=== PATIENT | male | born 1960 | race Caucasian/White ===

== ENCOUNTER → 2016-12-04 | Outpatient (CLI) | payer OTHER ==
[~2016-12-04] MED LIST: ALBUTEROL0.09 MG/A2 IH; AMITRIPTYLINE50 MG PO; ANAPROX DS550 MG PO; ASMANEX220 MCG INH; ATHLETE'S FOOT15 GM T; ATIVAN1 MG PO; AUGMENTIN 875 M1 TAB PO; BACTRIM DS 8001 TA1 PO; CIALIS5 MG PO; CIPRODEX 0.3%-7.5 ML OT; CLARITIN10 MG PO; DELTASONE20 M1 PO; DOXYCYCLINE100 M3 PO; DUONEB 3 MG/3 ML3 M1 INH; ETODOLAC400 M2 PO; ETODOLAC500 MG PO; FLEXERIL10 MG PO; HYDROCODONE BIT1 T11 PO; KEFLEX500 MG PO; LASIX20 MG PO; LODINE XL 500M500 MG PO; MASON NATURAL2000 IU PO; MOTRIN800 MG PO; MULTI VITAMINS1 TAB PO; Motrin,Rufen800 MG PO; NAPROSYN500 MG PO; OMEPRAZOLE20 M2 PO; POTASSIUM CHLO10 MEQ PO; POTASSIUM20 MEQ PO; PREDNICOT20 MG PO; PREVACID30 M1 PO; PRILOSEC20 MG PO; PROAIR HFA0.09 MG/AC IH; ROBITUSSIN AC 10 MG/ PO; SEPTRA DS 800 M1 TAB PO; SPIRIVA18 MCG PO; TESSALON PERLE200 MG PO; TOBREX OPHTH S2.5 ML OPH; TRAMADOL HCL50 MG PO; ULTRAM50 MG PO; VIBRAMYCIN100 MG PO; VICODIN 5-3001 EACH PO; VICODIN 5/500 505 MG PO; ZITHROMAX250 MG PO
[2016-12-04 09:07] LABS: HEMOGLOBIN 17.2 g/dl (14.0-18.0); MEAN CELL VOLUME 91.6 fl (80.0-94.0); MEAN CORPUSCULAR HGB 32.1 pg (27.0-31.0); MEAN CORPUSCULAR HGB CONC 35.1 g/dl (33.0-37.0); MEAN PLATELET VOLUME 10.3 fl (9.6-12.3); RED BLOOD COUNT 5.35 10*6/uL (4.50-5.90); RED CELL DISTRI WIDTH 12.9 % (0-14.5); WHITE BLOOD COUNT 6.8 10*3/uL (4.8-10.8)
[2016-12-04 09:30] LABS: ALBUMIN 3.7 gm/dl (3.1-4.5); ALKALINE PHOSPHATASE 73 U/L (45-117); BUN 19 mg/dl (7-24); CHLORIDE 106 mmol/L (98-107); CHOLESTEROL 162 mg/dL (<200); CREATININE 0.95 mg/dL (0.70-1.30); HDL CHOLESTEROL 38 mg/dl (40-60); LDL CHOLESTEROL 89 mg/dL (9-159); POTASSIUM 3.6 mmol/L (3.5-5.1); SGOT/AST 13 IU/L (3-35); SGPT/ALT 21 U/L (12-78); SODIUM 140 mmol/L (136-145); TOTAL PROTEIN 6.8 gm/dL (6.4-8.2); TRIGLYCERIDES 175 mg/dl (<150); VLDL CHOLESTEROL 35 mg/dL (6-40)
[2016-12-06 01:04] LABS: DILUTE PROTHROMBIN TIME 50.2 sec (0.0-55.0); DPT CONFIRM RATIO 1.13 Ratio (0.00-1.40); LUPUS DRVVT 41.8 sec (0.0-47.0); PTT-LA 38.6 sec (0.0-51.9); THROMBIN TIME 21.4 sec (0.0-23.0)
[2016-12-06 03:08] LABS: LUPUS REFLEX INTERPRETATION Comment: (.)
== END | disposition home or self-care (01) ==
LOC: LAB 08:37
PROVIDERS: Registered Nurse Flight
DX: I10 Essential (primary) hypertension (principal); F51.01 Primary insomnia; I37.0 Nonrheumatic pulmonary valve stenosis; M54.32 Sciatica, left side; R79.89 Other specified abnormal findings of blood chemistry

== ENCOUNTER 2017-01-09 11:40 | Inpatient (IN) | payer MEDICAID ==
[2017-01-09] VITALS (8 sets, daily range): BP systolic 124–152; BP diastolic 17–97
[~2017-01-09] VITALS: Ht 172.7 cm; Wt 77.3 kg
--- NOTE | ~2017-01-09 | CON ---
[place], [place] REPORT OF CONSULTATION NAME: LISSA RICHARD [facility] #: [id number] UNIT #: [id number] ROOM: 402 DOCTOR: CHANEL CALL MD BIRTHDATE: [birth year] DOS: 01/09/2017 HISTORY OF PRESENT ILLNESS: This is a 56-year-old -Citizen Of The [place] man with a history of aortic valve replacement in 1979 and again in the year 1999. Last year, he had been diagnosed with pulmonic stenosis and had gone to [facility] where he tells me they did some kind of procedure or test from the right groin, I presumed right heart catheterization. He has never had a heart attack, heart failure, diabetes mellitus, stroke, cancer or COPD, never had pulmonary embolism and no syncope or seizure disorder. He does not drink alcoholic beverages, but may be smoking 1 or 2 cigarettes a day. PAST MEDICAL HISTORY: Also includes depression, anxiety, DVT, COPD, GERD, bacteremia, scoliosis. He came to the Emergency Department because of sudden onset of sharp stabbing pain that was a very localized as if a bullet went through the left side of the chest into the back. He had been complaining of some very localized pain over the 5th and 6th rib on the left side and adjacent to the sternum and upper left back. It eased up, but about 10 minutes ago, it became severe again. Deep breath did not make any difference. He did not have any sweating, nausea or palpitations. He does not have any cough or fever. HOME MEDICATIONS: Include Proventil HFA, amitriptyline, vitamin D3, etodolac, furosemide, gabapentin, DuoNeb treatments, lisinopril, multivitamin, omeprazole, potassium chloride and Cialis, temazepam and Spiriva. PHYSICAL EXAMINATION: GENERAL: The patient is alert and oriented. He has right corneal opacity. His complexion is fine. He is afebrile. There is no thyromegaly or finger clubbing. VITAL SIGNS: Pulse is regular at 72, blood pressure 137/78. NECK: JVP is normal. AJR is negative. There is no carotid bruit. CARDIOVASCULAR: There is no cardiomegaly. Auscultation reveals normal A2. There is a grade 1/6-2/6 early peaking systolic murmur over the aortic area and there is a mild systolic murmur at the apex as well. There is a grade 2/6 systolic murmur over the right upper sternal border. P2 is audible and does not seem to be loud and good pedal pulses and no edema in lower extremities. RESPIRATORY: Lungs are clear to percussion and auscultation with good breath sounds. ABDOMEN: Supple, nontender. No bruit. DIAGNOSTIC STUDIES: ECG showed normal sinus rhythm and RSR pattern in anterior chest leads with normal QRS interval. No acute changes are present. Troponin I level is normal. CT of the chest was done which did not demonstrate any pulmonary embolism. IMPRESSION: This patient has valvular heart disease, status post aortic valve replacement and I believe pulmonic stenosis. He does not have any chronic symptoms from valvular abnormalities. Aortic valve seemed to be functioning [place], [place] REPORT OF CONSULTATION NAME: LISSA RICHARD UNIT #: [id number] ROOM: 402 DOCTOR: CHANEL CALL MD BIRTHDATE: [birth year] normally. Sharp pain that penetrated through to the back has had occurred today and it is noncardiac. There is marked tenderness over the left upper paraspinal muscles, which is a kind of pain he pointed out to me earlier. I do not have any specific recommendations. He clearly does not need any stress test from cardiac standpoint, he may be discharged home. I thank on behalf of Dr. Salgado for this consult. CHANEL CALL MD CM:CONSTR:REPORT OF CONSULTATION 22 01/09/172056 interface
[~2017-01-09 11:40] MED LIST changes: -ALBUTEROL0.09 MG/A2 IH; -MASON NATURAL2000 IU PO; -OMEPRAZOLE20 M2 PO; +OMEPRAZOLE40 MG PO; +PROVENTIL HFA6.7 GM INH; +VITAMIN D31000 UNI1 PO
--- NOTE | 2017-01-09 11:50 | NUR ---
RECIEVED A CALL FROM JORDON SOMERS, STATING THAT HE IS SENDING THIS PATIENT DOWN TO BEEN SEEN FOR SOB, STABBING CHEST PAIN RADIATING TO THE BACK AND L ARM ALSO WITH JAW INVOLVEMENT.STATED PT HAS A SIGNIFICNT CARDIAC HISTORY AND IS NON COMPLIANT. ALSO THAT HE IS A SMOKER.
[2017-01-09 12:15] LABS: BASO # 0.1 10*3/uL (0.0-0.1); BASO % 0.9 % (0.0-1.0); EOS # 0.3 10*3/uL (0.0-0.4); EOS % 3.7 % (1.0-4.0); HEMOGLOBIN 17.3 g/dl (14.0-18.0); LYMPH % 24.1 % (27.0-41.0); MEAN CELL VOLUME 91.4 fl (80.0-94.0); MEAN CORPUSCULAR HGB 32.3 pg (27.0-31.0); MEAN CORPUSCULAR HGB CONC 35.3 g/dl (33.0-37.0); MEAN PLATELET VOLUME 10.2 fl (9.6-12.3); MONO # 0.7 10*3/uL (0.1-1.0); MONO % 8.6 % (3.0-9.0); NEUT # 5.1 10*3/uL (2.3-7.9); NEUT % 62.6 % (47.0-73.0); PLATELET COUNT AUTOMATED 179 10*3/uL (130-400); RED BLOOD COUNT 5.36 10*6/uL (4.50-5.90); RED CELL DISTRI WIDTH 13.2 % (0-14.5); WHITE BLOOD COUNT 8.1 10*3/uL (4.8-10.8)
[2017-01-09 12:23] LABS: ACT PARTIAL THROMBO TIME 27.6 SECONDS (20.8-31.5); INTERNATIONAL NORM RATIO 1.1 (2.0-3.5)
[2017-01-09 12:36] LABS: ALKALINE PHOSPHATASE 69 U/L (45-117); BUN 28 mg/dl (7-24); CHLORIDE 103 mmol/L (98-107); CREATININE 0.98 mg/dL (0.70-1.30); POTASSIUM 4.7 mmol/L (3.5-5.1); SGOT/AST 17 IU/L (3-35); SGPT/ALT 26 U/L (12-78); SODIUM 138 mmol/L (136-145); TOTAL PROTEIN 6.9 gm/dL (6.4-8.2)
[2017-01-09 12:44] LABS: TROPONIN I < 0.015 ng/ml (<0.045)
--- NOTE | 2017-01-09 13:09 | NUR ---
PT ASKED FOR FOOD. I EXPLAINED THAT HE CAN NOT EAT OR DRINK ANYTHING AT LEAST UNTIL THE CT RESULTS ARE RECIEVED. VERBAL UNDERSTANDING NOTED
--- NOTE | 2017-01-09 14:07 | NUR ---
I CALLED CT TO ASK HOW MUCH LONGER IT WOULD BE UNTIL HE IS TAKING FOR CT
--- NOTE | 2017-01-09 15:34 | NUR ---
THE PT REQUESTED SOMETHING FOR PAIN RELIEF. DR WEST NOTIFIED
--- NOTE | 2017-01-09 16:11 | NUR ---
I CALLED TO GIVE REPORT. A NURSE HAS NOT BE ASSIGNED TO THE PATIENT YET
--- NOTE | 2017-01-09 16:30 | NUR ---
A 56, admitted to , under the services of ADRI Joy DO with a diagnosis of CHEST PAIN R/O FL. Chief complaint is CHEST PAIN/ JAW PAIN, SOB. Patient arrived via ambulatory from ER. Monitor applied. Initial assessment completed. Vital signs taken and recorded. ADRI JOY DO notified of admission to the unit. Orders received. See assessment for past medical history, medications and allergies. Patient and/or family oriented to unit. [facility] visitation policy reviewed. Clothing/patient valuable form completed. KAN BECKER
[2017-01-09] MEDS ORDERED: ZESTRIL10 MG PO (16:36)
[2017-01-09] MEDS ORDERED: RESTORIL15 MG PO (16:37)
[2017-01-09] MEDS ORDERED: NEURONTIN300 MG PO (16:37)
--- NOTE | 2017-01-09 16:38 | NUR ---
Med rec updated per [facility]
--- NOTE | 2017-01-09 17:35 | NUR ---
DR CALL HERE AND NOTIFIED OF NEW CONSULT FOR DR UNGER.
--- NOTE | 2017-01-09 18:04 | NUR ---
DR CALL IN TO SEE PT AT THIS TIME.
--- NOTE | 2017-01-09 18:05 | NUR ---
MEDICATED WITH NORCO FOR PT'S COMPLAINTS OF LEFT SIDE OF BACK PAIN, RATES PAIN 8/10. WILL MONITOR FOR EFFECTIVENESS.
--- NOTE | 2017-01-09 20:05 | NUR ---
LAB RESULTS AND ORDERS REVEIWED
[2017-01-10] VITALS: BP 138/88
[2017-01-10 04:00] VITALS: BP 119/70
[2017-01-10 06:09] LABS: BASO # 0.1 10*3/uL (0.0-0.1); BASO % 1.1 % (0.0-1.0); EOS # 0.3 10*3/uL (0.0-0.4); EOS % 4.8 % (1.0-4.0); HEMATOCRIT 46.2 % (42.0-52.0); HEMOGLOBIN 16.4 g/dl (14.0-18.0); LYMPH # 2.5 10*3/uL (1.3-4.4); LYMPH % 37.5 % (27.0-41.0); MEAN CELL VOLUME 89.2 fl (80.0-94.0); MEAN CORPUSCULAR HGB 31.7 pg (27.0-31.0); MEAN CORPUSCULAR HGB CONC 35.5 g/dl (33.0-37.0); MEAN PLATELET VOLUME 10.4 fl (9.6-12.3); MONO # 0.8 10*3/uL (0.1-1.0); MONO % 11.3 % (3.0-9.0); PLATELET COUNT AUTOMATED 159 10*3/uL (130-400); RED BLOOD COUNT 5.18 10*6/uL (4.50-5.90); RED CELL DISTRI WIDTH 12.9 % (0-14.5); WHITE BLOOD COUNT 6.6 10*3/uL (4.8-10.8)
[2017-01-10 06:31] LABS: ALBUMIN 3.5 gm/dl (3.1-4.5); BUN 24 mg/dl (7-24); CHLORIDE 101 mmol/L (98-107); CHOLESTEROL 144 mg/dL (<200); CREATININE 0.78 mg/dL (0.70-1.30); PHOSPHOROUS 3.9 mg/dL (2.5-4.9); SGOT/AST 13 IU/L (3-35); SGPT/ALT 24 U/L (12-78); SODIUM 136 mmol/L (136-145); TOTAL PROTEIN 6.3 gm/dL (6.4-8.2); TRIGLYCERIDES 82 mg/dl (<150); VLDL CHOLESTEROL 16 mg/dL (6-40)
[2017-01-10 06:38] LABS: ALKALINE PHOSPHATASE 61 U/L (45-117); FREE T4 1.08 ng/dl (0.76-1.46); HDL CHOLESTEROL 37 mg/dl (40-60); LDL CHOLESTEROL 91 mg/dL (9-159)
[2017-01-10 06:48] LABS: POTASSIUM 3.6 mmol/L (3.5-5.1)
[2017-01-10 07:48] LABS: VITAMIN D, 25-HYDROXY 32.5 ng/mL (30-100)
[2017-01-10 08:00] VITALS: BP 122/74
--- NOTE | 2017-01-10 09:00 | NUR ---
Information Architect in to talk to patient. Patient states lives at home with alone. There are few steps in the home. Physician: breonna mclaughlin [facility] Home health services: none Patient's level of ADLs: INDEPENDENT Patient has working utilities: all working DME: [employer] Follow-up physician's appointment after d/c: will be made by hospitalist nurse director upon discharge Does patient want to access PORTAL?: no] Discharge plan discussed with patient, patient lives at home alone, states he is independent in adls and ambulation, patient states he is will be going home and denies any home needs. MEI DUMONT
--- NOTE | 2017-01-10 11:35 | NUR ---
PT C/O PAIN BETWEEN SHOULDER BLADES RATES PAIN 8 ON PAIN SCALE 0-10. ALSO C/O LEFT HIP PAIN RATES THAT PAIN 12 ON PAIN SCALE 0-10. MEDICATED WITH NORCO PO PER PRN ORDER, SEE EMAR. CALL LIGHT IN REACH.
[2017-01-10 12:00] VITALS: BP 122/61
[2017-01-10] MEDS ORDERED: CYCLOBENZAPRINE10 MG PO ×2 (15:26→15:30)
--- NOTE | 2017-01-10 15:49 | NUR ---
PT DISCHARGED AT THIS TIME WITH SPOUSE TO HOME.
== END 2017-01-10 16:10 | disposition home or self-care (01) | DRG 313 ==
LOC: ED 11:40 → EDHOLD 16:03 → 4E 16:03
PROVIDERS: Emergency Medicine; Registered Nurse; ADMIT Internal Medicine
DX: R07.89 Other chest pain (principal); I25.10 Atherosclerotic heart disease of native coronary artery without angina pectoris; I11.0 Hypertensive heart disease with heart failure; I50.9 Heart failure, unspecified; F33.9 Major depressive disorder, recurrent, unspecified; F17.210 Nicotine dependence, cigarettes, uncomplicated; M54.30 Sciatica, unspecified side; G89.29 Other chronic pain; H54.40 Blindness, one eye, unspecified eye; J43.9 Emphysema, unspecified; H57.10 Ocular pain, unspecified eye; F41.9 Anxiety disorder, unspecified; K21.9 Gastro-esophageal reflux disease without esophagitis; M41.9 Scoliosis, unspecified; M19.90 Unspecified osteoarthritis, unspecified site; Z88.6 Allergy status to analgesic agent; Z88.1 Allergy status to other antibiotic agents; Z79.899 Other long term (current) drug therapy; Z86.718 Personal history of other venous thrombosis and embolism; Z87.81 Personal history of (healed) traumatic fracture; Z95.2 Presence of prosthetic heart valve; Z83.3 Family history of diabetes mellitus; Z82.49 Family history of ischemic heart disease and other diseases of the circulatory system; Z80.9 Family history of malignant neoplasm, unspecified; Z71.6 Tobacco abuse counseling

== ENCOUNTER → 2017-03-05 | Outpatient (CLI) | payer MEDICAID ==
[~2017-03-05] MED LIST changes: +AMBIEN10 M1 PO; +CYCLOBENZAPRINE10 MG PO; +NEURONTIN300 MG PO; +RESTORIL15 MG PO; +ZESTRIL10 MG PO
--- NOTE | ~2017-03-05 | ST ---
[place], [place] EXERCISE STRESS TEST REPORT [id number] UN[facility] #: [id number] ROOM: DOCTOR: MICHAEL UNGER MD BIRTHDATE: [birth year] DOS: 03/05/2017 LEXISCAN PORTION OF THE LEXISCAN CARDIOLITE Baseline cardiogram, sinus rhythm with mild concave ST elevation in the inferior leads, 0.4 mg Lexiscan, duration of 10 seconds. The patient did have some mild more ST elevation concave in the inferior leads, did have some chest discomfort, 5/10. Blood pressure and heart rate responses normal. Nuclear images will be reported separately. MICHAEL UNGER MD CM:STRESS:EXERCISE STRESS TEST REPORT 0712 0724 MICHAEL UNGER MD
== END | disposition home or self-care (01) ==
LOC: CARD 03:25
DX: I10 Essential (primary) hypertension (principal); R07.89 Other chest pain; G89.4 Chronic pain syndrome; R53.81 Other malaise

== ENCOUNTER 2017-08-02 19:44 | Emergency (ER) | payer MEDICAID ==
[2017-08-02 20:09] LABS: BASO # 0.1 10*3/uL (0.0-0.1); BASO % 0.6 % (0.0-1.0); EOS # 0.2 10*3/uL (0.0-0.4); EOS % 1.9 % (1.0-4.0); HEMATOCRIT 48.7 % (42.0-52.0); HEMOGLOBIN 16.7 g/dl (14.0-18.0); LYMPH # 2.7 10*3/uL (1.3-4.4); MEAN CELL VOLUME 92.8 fl (80.0-94.0); MEAN CORPUSCULAR HGB 31.8 pg (27.0-31.0); MEAN CORPUSCULAR HGB CONC 34.3 g/dl (33.0-37.0); MEAN PLATELET VOLUME 10.8 fl (9.6-12.3); MONO # 1.1 10*3/uL (0.1-1.0); MONO % 10.9 % (3.0-9.0); NEUT # 5.9 10*3/uL (2.3-7.9); NEUT % 59.3 % (47.0-73.0); PLATELET COUNT AUTOMATED 185 10*3/uL (130-400); RED BLOOD COUNT 5.25 10*6/uL (4.50-5.90); RED CELL DISTRI WIDTH 12.3 % (0-14.5); WHITE BLOOD COUNT 9.9 10*3/uL (4.8-10.8)
[2017-08-02] MEDS ORDERED: ATIVAN1 MG PO (20:23)
[2017-08-02 20:31] LABS: ALBUMIN 4.2 gm/dl (3.1-4.5); ALKALINE PHOSPHATASE 75 U/L (45-117); BUN 22 mg/dl (7-24); CHLORIDE 102 mmol/L (98-107); CREATININE 1.03 mg/dL (0.70-1.30); POTASSIUM 4.4 mmol/L (3.5-5.1); SGOT/AST 12 IU/L (3-35); SGPT/ALT 16 U/L (12-78); SODIUM 137 mmol/L (136-145); TOTAL PROTEIN 7.3 gm/dL (6.4-8.2)
[2017-08-02 20:37] LABS: TROPONIN I < 0.015 ng/ml (<0.045)
[2017-08-02 20:47] LABS: ACT PARTIAL THROMBO TIME 26.7 SECONDS (20.8-31.5); INTERNATIONAL NORM RATIO 1.2 (2.0-3.5)
[2017-08-03 01:02] VITALS: BP 133/82
[2017-08-03] MEDS ORDERED: SEPTDS PO (01:30)
[2017-08-03] MEDS ORDERED: VIBRAMYCIN100 MG PO (01:30)
== END 2017-08-03 01:43 | disposition home or self-care (01) ==
LOC: ED 19:44
PROVIDERS: Emergency Medicine Emergency Medical Services
DX: S29.012A Strain of muscle and tendon of back wall of thorax, initial encounter (principal); R22.0 Localized swelling, mass and lump, head; I25.10 Atherosclerotic heart disease of native coronary artery without angina pectoris; I11.0 Hypertensive heart disease with heart failure; I50.9 Heart failure, unspecified; K21.9 Gastro-esophageal reflux disease without esophagitis; F17.200 Nicotine dependence, unspecified, uncomplicated; M19.90 Unspecified osteoarthritis, unspecified site; Z88.1 Allergy status to other antibiotic agents; Z98.890 Other specified postprocedural states; Z86.718 Personal history of other venous thrombosis and embolism; Z88.6 Allergy status to analgesic agent; Z79.899 Other long term (current) drug therapy; Z95.1 Presence of aortocoronary bypass graft; X58.XXXA Exposure to other specified factors, initial encounter; Y93.89 Activity, other specified; Y92.89 Other specified places as the place of occurrence of the external cause; Y99.9 Unspecified external cause status

== ENCOUNTER 2017-08-16 14:50 | Emergency (ER) | payer MEDICAID ==
[~2017-08-16] VITALS: Wt 77.1 kg
[~2017-08-16 14:50] MED LIST changes: +SEPTDS PO
[2017-08-16 14:52] VITALS: BP 154/68
[2017-08-16] MEDS ORDERED: SILVADENE,SSD C50 GM T (15:15)
[2017-08-16] MEDS ORDERED: IBUPROFEN600 MG PO (15:15)
[2017-08-16] MEDS ORDERED: ANTIBIOTIC28.4 GM T (15:25)
== END 2017-08-16 15:40 | disposition home or self-care (01) ==
LOC: ED 14:50
DX: L55.0 Sunburn of first degree (principal); L55.1 Sunburn of second degree; Z79.899 Other long term (current) drug therapy; Z88.1 Allergy status to other antibiotic agents; Z88.5 Allergy status to narcotic agent

== ENCOUNTER 2017-08-23 17:06 | Emergency (ER) | payer MEDICAID ==
[~2017-08-23] VITALS: Ht 172.7 cm; Wt 95.3 kg
[~2017-08-23 17:06] MED LIST changes: +ANTIBIOTIC28.4 GM T; +IBUPROFEN600 MG PO; +SILVADENE,SSD C50 GM T
[2017-08-23 17:08] VITALS: BP 153/98
[2017-08-23 18:43] LABS: BASO % 0.4 % (0.0-1.0); EOS # 0.1 10*3/uL (0.0-0.4); EOS % 1.1 % (1.0-4.0); HEMATOCRIT 53.6 % (42.0-52.0); HEMOGLOBIN 19.2 g/dl (14.0-18.0); LYMPH % 27.3 % (27.0-41.0); MEAN CORPUSCULAR HGB 31.9 pg (27.0-31.0); MEAN CORPUSCULAR HGB CONC 35.8 g/dl (33.0-37.0); MEAN PLATELET VOLUME 10.4 fl (9.6-12.3); MONO # 0.8 10*3/uL (0.1-1.0); MONO % 11.2 % (3.0-9.0); NEUT # 4.4 10*3/uL (2.3-7.9); NEUT % 59.7 % (47.0-73.0); PLATELET COUNT AUTOMATED 196 10*3/uL (130-400); RED BLOOD COUNT 6.02 10*6/uL (4.50-5.90); RED CELL DISTRI WIDTH 11.9 % (0-14.5); WHITE BLOOD COUNT 7.4 10*3/uL (4.8-10.8)
[2017-08-23 18:57] LABS: ALBUMIN 4.2 gm/dl (3.1-4.5); ALKALINE PHOSPHATASE 86 U/L (45-117); BUN 25 mg/dl (7-24); CHLORIDE 102 mmol/L (98-107); CREATININE 0.91 mg/dL (0.70-1.30); POTASSIUM 3.6 mmol/L (3.5-5.1); SGOT/AST 17 IU/L (3-35); SGPT/ALT 26 U/L (12-78); SODIUM 132 mmol/L (136-145); TOTAL PROTEIN 7.5 gm/dL (6.4-8.2)
[2017-08-23 19:13] LABS: BILIRUBIN 2+ (NEGATIVE); BLOOD NEGATIVE (NEGATIVE); CLARITY CLEAR (CLEAR); COLOR YELLOW (YELLOW); GLUCOSE NEGATIVE (NEGATIVE); KETONE 2+ (NEGATIVE); LEUKO ESTERASE NEGATIVE (NEGATIVE); NITRITE NEGATIVE (NEGATIVE); SPECIFIC GRAVITY 1.025 (1.005-1.030)
[2017-08-23 19:21] LABS: BACTERIA TRACE; EPITHELIAL CELLS 0-2; MUCOUS 3+
== END 2017-08-23 22:40 | disposition home or self-care (01) ==
LOC: ED 17:06
PROVIDERS: Nurse Practitioner
DX: E86.0 Dehydration (principal); Z87.891 Personal history of nicotine dependence; Z98.890 Other specified postprocedural states; Z79.899 Other long term (current) drug therapy; Z88.1 Allergy status to other antibiotic agents; Z88.6 Allergy status to analgesic agent

== ENCOUNTER → 2017-10-09 | Outpatient (CLI) | payer MEDICAID ==
[~2017-10-09] MED LIST changes: +NORCO 5-325 TA1 EACH PO
== END | disposition home or self-care (01) ==
LOC: RAD 12:32
DX: S90.01XA Contusion of right ankle, initial encounter (principal); X58.XXXA Exposure to other specified factors, initial encounter; Y93.89 Activity, other specified; Y92.89 Other specified places as the place of occurrence of the external cause; Y99.8 Other external cause status

== ENCOUNTER 2017-10-11 11:11 | Emergency (ER) | payer MEDICAID ==
[~2017-10-11] VITALS: Ht 172.7 cm; Wt 80.7 kg
[~2017-10-11 11:11] MED LIST changes: -NORCO 5-325 TA1 EACH PO
[2017-10-11 11:13] VITALS: BP 142/80
[2017-10-11] MEDS ORDERED: NORCO 5-325 TA1 EACH PO (11:28)
[2017-10-11] MEDS ORDERED: NAPROSYN500 MG PO (11:28)
== END 2017-10-11 12:00 | disposition home or self-care (01) ==
LOC: ED 11:11
DX: S92.354D Nondisplaced fracture of fifth metatarsal bone, right foot, subsequent encounter for fracture with routine healing (principal); I25.10 Atherosclerotic heart disease of native coronary artery without angina pectoris; K21.9 Gastro-esophageal reflux disease without esophagitis; I11.0 Hypertensive heart disease with heart failure; I50.9 Heart failure, unspecified; M19.90 Unspecified osteoarthritis, unspecified site; Z98.890 Other specified postprocedural states; Z79.899 Other long term (current) drug therapy; Z88.1 Allergy status to other antibiotic agents; Z88.6 Allergy status to analgesic agent; Z87.891 Personal history of nicotine dependence; Z86.718 Personal history of other venous thrombosis and embolism; W18.49XD Other slipping, tripping and stumbling without falling, subsequent encounter

== ENCOUNTER → 2017-11-13 | Outpatient (CLI) | payer MEDICAID ==
[~2017-11-13] MED LIST changes: +AVPAK AZITHROM250 M1 PO; +BACLOFEN20 M1 PO; +FLAGYL500 MG PO; +IBU800 MG PO; +MAPAP EXTRA ST500 MG PO; -NEURONTIN300 MG PO; +NEURONTIN800 MG PO; +NORCO 5-325 TA1 EACH PO; +PROCTOZONE-HC30 GM R; +TYLENOL EXTRA500 MG PO; +ZOFRAN ODT4 MG SL; +ZOLPIDEM10 MG PO
== END | disposition home or self-care (01) ==
LOC: CT 09:43
DX: S92.354A Nondisplaced fracture of fifth metatarsal bone, right foot, initial encounter for closed fracture (principal); M79.89 Other specified soft tissue disorders; X58.XXXA Exposure to other specified factors, initial encounter; Y93.89 Activity, other specified; Y92.89 Other specified places as the place of occurrence of the external cause; Y99.8 Other external cause status

== ENCOUNTER 2017-11-17 08:19 | Inpatient (IN) | payer MEDICAID ==
[~2017-11-17] VITALS: Ht 172.7 cm; Wt 84.4 kg
--- NOTE | ~2017-11-17 | EKG ---
[place], [place] ELECTROCARDIOGRAM REPORT NAME: LISSA RICHARD UNIT #: [id number] ROOM: 502 DOCTOR: OCTAVIO DRAFT REPORT BIRTHDATE: [birth year] [facility] Test Date: 2017-11-17 Test Time: 09:06:33 Pat Name: LISSA RICHARD Department: Room: [facility] Gender: M Ear Nose Throat Physician: : 1960 Requested By: OSVALDO SORTO Order Number: [id number] Reading MD: Joon Salgado MD Measurements Intervals [place] Rate: 77 P: 67 [place]: 144 QRS: 122 QRSD: 84 T: 53 QT: 399 QTc: 452 Interpretive Statements Sinus rhythm Probable left atrial enlargement Consider right ventricular hypertrophy Minimal ST elevation, inferior leads Electronically Signed On 11-18-2017 8:42:40 PDT by Joon Salgado MD CM:EKGRPT:ELECTROCARDIOGRAM REPORT 5 0842 OSVALDO CUNNINGHAM DRAFT REPORT OSVALDO SORTO MD
[~2017-11-17 08:19] MED LIST changes: -AVPAK AZITHROM250 M1 PO; -BACLOFEN20 M1 PO; -FLAGYL500 MG PO; -IBU800 MG PO; -MAPAP EXTRA ST500 MG PO; -PROCTOZONE-HC30 GM R; -TYLENOL EXTRA500 MG PO; -ZOLPIDEM10 MG PO
[2017-11-17 08:25] VITALS: BP 142/83
[2017-11-17 09:11] LABS: BASO % 0.5 % (0.0-1.0); EOS # 0.1 10*3/uL (0.0-0.4); EOS % 1.2 % (1.0-4.0); HEMATOCRIT 51.8 % (42.0-52.0); HEMOGLOBIN 17.5 g/dl (14.0-18.0); LYMPH # 1.5 10*3/uL (1.3-4.4); LYMPH % 18.3 % (27.0-41.0); MEAN CELL VOLUME 92.2 fl (80.0-94.0); MEAN CORPUSCULAR HGB 31.1 pg (27.0-31.0); MEAN CORPUSCULAR HGB CONC 33.8 g/dl (33.0-37.0); MEAN PLATELET VOLUME 10.3 fl (9.6-12.3); MONO # 0.6 10*3/uL (0.1-1.0); MONO % 7.2 % (3.0-9.0); NEUT # 6.1 10*3/uL (2.3-7.9); NEUT % 72.4 % (47.0-73.0); PLATELET COUNT AUTOMATED 194 10*3/uL (130-400); RED BLOOD COUNT 5.62 10*6/uL (4.50-5.90); RED CELL DISTRI WIDTH 12.3 % (0-14.5); WHITE BLOOD COUNT 8.4 10*3/uL (4.8-10.8)
[2017-11-17 09:23] LABS: ACT PARTIAL THROMBO TIME 27.6 SECONDS (20.8-31.5); INTERNATIONAL NORM RATIO 1.2 (2.0-3.5)
[2017-11-17 09:32] LABS: ALBUMIN 3.8 gm/dl (3.1-4.5); ALKALINE PHOSPHATASE 81 U/L (45-117); BUN 23 mg/dl (7-24); CHLORIDE 106 mmol/L (98-107); CREATININE 0.83 mg/dL (0.70-1.30); LIPASE 78 U/L (73-393); POTASSIUM 4.4 mmol/L (3.5-5.1); SGOT/AST 18 IU/L (3-35); SGPT/ALT 22 U/L (12-78); SODIUM 138 mmol/L (136-145); TOTAL PROTEIN 7.2 gm/dL (6.4-8.2)
[2017-11-17 09:33] LABS: TROPONIN I < 0.015 ng/ml (<0.045)
[2017-11-17 10:18] LABS: BILIRUBIN 2+ (NEGATIVE); BLOOD NEGATIVE (NEGATIVE); CLARITY SL CLOUDY (CLEAR); COLOR YELLOW (YELLOW); GLUCOSE NEGATIVE (NEGATIVE); KETONE 1+ (NEGATIVE); LEUKO ESTERASE NEGATIVE (NEGATIVE); NITRITE NEGATIVE (NEGATIVE); PH 6.5 (5.0-9.0); SPECIFIC GRAVITY 1.025 (1.005-1.030)
[2017-11-17 10:24] LABS: MUCOUS 2+
[2017-11-17 11:05] VITALS: BP 127/70
[2017-11-17 11:48] VITALS: BP 154/84
[2017-11-17 16:00] VITALS: BP 126/77
[2017-11-17 20:00] VITALS: BP 135/78
[2017-11-18] VITALS: BP 127/72
[2017-11-18 06:59] LABS: BASO % 0.6 % (0.0-1.0); EOS # 0.1 10*3/uL (0.0-0.4); EOS % 1.8 % (1.0-4.0); LYMPH # 1.9 10*3/uL (1.3-4.4); LYMPH % 29.6 % (27.0-41.0); MEAN CELL VOLUME 92.9 fl (80.0-94.0); MEAN CORPUSCULAR HGB 31.6 pg (27.0-31.0); MEAN PLATELET VOLUME 10.6 fl (9.6-12.3); MONO # 0.6 10*3/uL (0.1-1.0); MONO % 10.2 % (3.0-9.0); NEUT # 3.6 10*3/uL (2.3-7.9); NEUT % 57.5 % (47.0-73.0); PLATELET COUNT AUTOMATED 172 10*3/uL (130-400); RED BLOOD COUNT 5.06 10*6/uL (4.50-5.90); RED CELL DISTRI WIDTH 12.3 % (0-14.5); WHITE BLOOD COUNT 6.3 10*3/uL (4.8-10.8)
[2017-11-18 07:10] LABS: BUN 21 mg/dl (7-24); CHLORIDE 108 mmol/L (98-107); CHOLESTEROL 172 mg/dL (<200); CREATININE 0.82 mg/dL (0.70-1.30); HDL CHOLESTEROL 28 mg/dl (40-60); LDL CHOLESTEROL 117 mg/dL (9-159); PHOSPHOROUS 3.4 mg/dL (2.5-4.9); SODIUM 138 mmol/L (136-145); TRIGLYCERIDES 134 mg/dl (<150); VLDL CHOLESTEROL 27 mg/dL (6-40)
[2017-11-18 08:00] VITALS: BP 124/84
[2017-11-18] MEDS ORDERED: BACLOFEN20 M1 PO (09:29)
[2017-11-18 16:00] VITALS: BP 133/73
[2017-11-18 20:00] VITALS: BP 110/62
[2017-11-19] VITALS: BP 121/65
[2017-11-19 08:00] VITALS: BP 134/74
[2017-11-19 20:00] VITALS: BP 136/73
[2017-11-20] VITALS: BP 139/84
[2017-11-20] MEDS ORDERED: FLAGYL500 MG PO (09:49)
[2017-11-20] MEDS ORDERED: AVPAK AZITHROM250 M1 PO (09:49)
[2017-11-20] MEDS ORDERED: TYLENOL EXTRA500 MG PO (09:49)
[2017-11-20] MEDS ORDERED: CLARITIN10 MG PO (09:50)
[2017-11-20] MEDS ORDERED: IBU800 MG PO (09:50)
== END 2017-11-20 12:56 | disposition home or self-care (01) | DRG 178 ==
LOC: ED 08:19 → 5E 10:50 → EDHOLD 10:50 → 5E 11:07
PROVIDERS: Emergency Medicine; Student in an Organized Health Care Education/Training Program
DX: J15.6 Pneumonia due to other Gram-negative bacteria (principal); J84.9 Interstitial pulmonary disease, unspecified; I50.22 Chronic systolic (congestive) heart failure; I38 Endocarditis, valve unspecified; K52.9 Noninfective gastroenteritis and colitis, unspecified; J34.89 Other specified disorders of nose and nasal sinuses; E83.41 Hypermagnesemia; E80.6 Other disorders of bilirubin metabolism; R82.4 Acetonuria; J43.9 Emphysema, unspecified; K21.9 Gastro-esophageal reflux disease without esophagitis; F41.8 Other specified anxiety disorders; M41.9 Scoliosis, unspecified; M19.90 Unspecified osteoarthritis, unspecified site; I25.10 Atherosclerotic heart disease of native coronary artery without angina pectoris; I83.812 Varicose veins of left lower extremity with pain; I11.0 Hypertensive heart disease with heart failure; H54.7 Unspecified visual loss; H54.61 Unqualified visual loss, right eye, normal vision left eye; H54.40 Blindness, one eye, unspecified eye; F32.9 Major depressive disorder, single episode, unspecified; Z86.718 Personal history of other venous thrombosis and embolism; Z95.2 Presence of prosthetic heart valve; Z88.8 Allergy status to other drugs, medicaments and biological substances; Z79.899 Other long term (current) drug therapy; Z71.6 Tobacco abuse counseling; Z72.0 Tobacco use; S92.354S Nondisplaced fracture of fifth metatarsal bone, right foot, sequela; Z98.42 Cataract extraction status, left eye; Z82.49 Family history of ischemic heart disease and other diseases of the circulatory system; Z83.3 Family history of diabetes mellitus; Z80.8 Family history of malignant neoplasm of other organs or systems

== ENCOUNTER → 2017-12-09 | Outpatient (CLI) | payer MEDICAID ==
[~2017-12-09] MED LIST changes: +AVPAK AZITHROM250 M1 PO; +BACLOFEN20 M1 PO; +FLAGYL500 MG PO; +IBU800 MG PO; +MAPAP EXTRA ST500 MG PO; +PROCTOZONE-HC30 GM R; +TYLENOL EXTRA500 MG PO; +ZOLPIDEM10 MG PO
== END | disposition home or self-care (01) ==
LOC: ORTHO 00:01 → RAD 00:01 → ORTHO 02:20
DX: J43.9 Emphysema, unspecified (principal); I50.9 Heart failure, unspecified; F17.200 Nicotine dependence, unspecified, uncomplicated; Z87.01 Personal history of pneumonia (recurrent)

== ENCOUNTER 2017-12-14 13:33 | Inpatient (IN) | payer MEDICAID ==
[~2017-12-14] VITALS: Ht 172.7 cm; Wt 83.5 kg
--- NOTE | ~2017-12-14 | EKG ---
[place], [place] ELECTROCARDIOGRAM REPORT NAME: LISSA RICHARD UNIT #: [id number] ROOM: [facility] DOCTOR: OCTAVIO DRAFT REPORT BIRTHDATE: [birth year] [facility] Test Date: 2017-12-14 Test Time: 13:41:12 Pat Name: LISSA RICHARD Department: Room: [facility] Gender: M President Financial Institution: : 1960 Requested By: OSVALDO SORTO Order Number: [id number] Reading MD: Joon Salgado MD Measurements Intervals [place] Rate: 69 P: 57 [place]: 144 QRS: 122 QRSD: 87 T: 38 QT: 402 QTc: 431 Interpretive Statements Sinus rhythm Probable left atrial enlargement Consider right ventricular hypertrophy Compared to ECG 11/17/2017 09:06:33 ST (T wave) deviation no longer present Electronically Signed On 12-16-2017 8:42:26 PDT by Joon Salgado MD CM:EKGRPT:ELECTROCARDIOGRAM REPORT 1341 0842 OSVALDO CUNNINGHAM DRAFT REPORT OSVALDO SORTO MD
--- NOTE | ~2017-12-14 | EKG ---
[place], [place] ELECTROCARDIOGRAM REPORT NAME: LISSA RICHARD UNIT #: [id number] ROOM: 515 DOCTOR: OCTAVIO DRAFT REPORT BIRTHDATE: [birth year] [facility] Test Date: 2017-12-14 Test Time: 19:49:20 Pat Name: LISSA RICHARD Department: 5E Room: [facility] Gender: M Early Childhood Specialist: Arron Gibson : 1960 Requested By: OSVALDO SORTO Order Number: [id number] Reading MD: Joon Salgado MD Measurements Intervals [place] Rate: 72 P: 70 [place]: 157 QRS: 141 QRSD: 91 T: 57 QT: 397 QTc: 435 Interpretive Statements Sinus rhythm Left atrial enlargement Consider RVH w/ secondary repol abnormality Compared to ECG 11/17/2017 09:06:33 ST (T wave) deviation no longer present Electronically Signed On 12-16-2017 8:43:00 PDT by Joon Salgado MD CM:EKGRPT:ELECTROCARDIOGRAM REPORT [id number] 0843 OSVALDO CUNNINGHAM DRAFT REPORT OSVALDO SORTO MD
--- NOTE | ~2017-12-14 | CON ---
[place], [place] REPORT OF CONSULTATION NAME: LISSA RICHARD UNIT #: [id number] ROOM: 515 DOCTOR: CHANEL CALL MD BIRTHDATE: [birth year] DOS: 12/15/[address] Navarrete. HISTORY OF PRESENT ILLNESS: This is a 57-year-old -[place] man with a history of aortic valve replacement in the very remote past and a tissue valve ____ and because of restenosis he had a porcine valve DICTATION ENDS HERE CHANEL CALL MD CM:CONSTR:REPORT OF CONSULTATION 1345 12/30/17 0750 RENY NICHOLS MIS.TM
--- NOTE | ~2017-12-14 | EKG ---
[place], [place] ELECTROCARDIOGRAM REPORT NAME: LISSA RICHARD UNIT #: [id number] ROOM: [facility] DOCTOR: OCTAVIO DRAFT REPORT BIRTHDATE: [address] [facility] Test Date: 2017-12-14 Test Time: 16:32:33 Pat Name: LISSA RICHARD Department: Room: [facility] Gender: M Pipelayer: [id number] : 1960 Requested By: OSVALDO SORTO Order Number: [id number] Reading MD: Joon Salgado MD Measurements Intervals [place] Rate: 66 P: 69 [place]: 151 QRS: 147 QRSD: 88 T: 63 QT: 415 QTc: 435 Interpretive Statements Sinus rhythm Left atrial enlargement Probable RVH w/ secondary repol abnormality Compared to ECG 11/17/2017 09:06:33 ST (T wave) deviation no longer present Electronically Signed On 12-16-2017 8:42:46 PDT by Joon Salgado MD CM:EKGRPT:ELECTROCARDIOGRAM REPORT [id number] 0842 OSVALDO CUNNINGHAM DRAFT REPORT OSVALDO SORTO MD
--- NOTE | ~2017-12-14 | CON ---
[place], [place] REPORT OF CONSULTATION NAME: LISSA RICHARD [facility] #: [id number] UNIT #: [id number] ROOM: 515 DOCTOR: CHANEL CALL MD BIRTHDATE: [birth year] DOS: 12/15/[address] Salgado. HISTORY OF PRESENT ILLNESS: This is a 57-year-old -[place] Island[place] man with a history of aortic valve disease. He had a bioprosthetic valve implanted in 2018 and restenosis resulted in insertion of a porcine valve in 1999. He has pulmonic stenosis and has been worked up in [facility]. He has had DVT of the left leg, COPD, GERD, scoliosis, anxiety and depression. He has never had a heart attack, heart failure, or stroke. He smokes 1 pack of cigarettes per day. Does not use alcoholic beverages. Lives at home. He was admitted to the hospital because of left submammary pain that went across the line of the ribs and pain was sharp and somebody was stabbing him and it would get worse when he coughed or took a deep breath in and it did not radiate to any other part of the body. There is no anterior chest pain or pressure. He had no palpitations, any sweating or nausea. He did not pass out. HOME MEDICATIONS: Reviewed. He is on bronchodilators. He is on baclofen 20 mg daily, vitamin D 1000 units daily, furosemide 20 mg daily, gabapentin 800 mg q.i.d., ibuprofen 800 t.i.d. p.r.n. for pain, etodolac 400 mg b.i.d., lisinopril 10 mg daily, Claritin 10 mg daily, lorazepam 1 mg b.i.d., multivitamins, omeprazole 40 daily, potassium chloride 10 mEq b.i.d., Spiriva as well. PHYSICAL EXAMINATION: GENERAL: The patient is short. He is rather flushed body but temperature is normal. He is not cyanotic, not jaundiced. There is no thyromegaly or finger clubbing. VITAL SIGNS: Pulse is regular at 60-70 beats per minute, blood pressure 118/52. NECK: JVP normal. AJR is negative. No bruit in the neck. HEART: There is a grade 1-2/6 systolic murmur over the pulmonic area and grade 1/6 murmur over the aortic area. He has good pedal pulses and no edema in the lower extremity. LUNGS: Clear to percussion and auscultation reveals just a few rhonchi, otherwise breath sounds are fairly decent. ECGs have shown normal sinus rhythm with good heart rate with RSR prime in V1 to V2 and inverted T waves in V1 to V3, then may be from right ventricular abnormality. Troponin levels are normal. IMPRESSION AND PLAN: 1. This patient with known coronary artery disease, has aortic valve replacement, which the valve seemed to function normally. 2. Acute sharp left submammary pain is most likely from the chest wall. He may have strained intercostal muscles. No further cardiac workup is necessary. From cardiac standpoint, he can be discharged home. [place], [place] REPORT OF CONSULTATION NAME: LISSA RICHARD UNIT #: [id number] ROOM: [facility] DOCTOR: CHANEL CALL MD BIRTHDATE: [birth year] CHANEL CALL MD CM:CONSTR:REPORT OF CONSULTATION 7224 12/16/17 1035 interface
[~2017-12-14 13:33] MED LIST changes: -MAPAP EXTRA ST500 MG PO; -PROCTOZONE-HC30 GM R; -ZOLPIDEM10 MG PO
[2017-12-14 13:34] VITALS: BP 148/81
[2017-12-14 13:50] LABS: BASO % 0.5 % (0.0-1.0); EOS # 0.1 10*3/uL (0.0-0.4); EOS % 0.6 % (1.0-4.0); HEMATOCRIT 47.4 % (42.0-52.0); HEMOGLOBIN 17.1 g/dl (14.0-18.0); LYMPH # 1.9 10*3/uL (1.3-4.4); MEAN CELL VOLUME 89.8 fl (80.0-94.0); MEAN CORPUSCULAR HGB 32.4 pg (27.0-31.0); MEAN CORPUSCULAR HGB CONC 36.1 g/dl (33.0-37.0); MONO # 0.7 10*3/uL (0.1-1.0); NEUT # 5.8 10*3/uL (2.3-7.9); NEUT % 68.5 % (47.0-73.0); PLATELET COUNT AUTOMATED 304 10*3/uL (130-400); RED BLOOD COUNT 5.28 10*6/uL (4.50-5.90); WHITE BLOOD COUNT 8.5 10*3/uL (4.8-10.8)
[2017-12-14 14:18] LABS: ALKALINE PHOSPHATASE 58 U/L (45-117); BUN 17 mg/dl (7-24); CHLORIDE 106 mmol/L (98-107); CREATININE 0.78 mg/dL (0.70-1.30); POTASSIUM 3.8 mmol/L (3.5-5.1); SGOT/AST 12 IU/L (3-35); SGPT/ALT 21 U/L (12-78); SODIUM 138 mmol/L (136-145); TOTAL PROTEIN 7.2 gm/dL (6.4-8.2)
[2017-12-14 14:32] LABS: TROPONIN I < 0.015 ng/ml (<0.045)
[2017-12-14 14:37] LABS: ACT PARTIAL THROMBO TIME 25.6 SECONDS (20.8-31.5); INTERNATIONAL NORM RATIO 1.2 (2.0-3.5)
[2017-12-14 14:45] VITALS: BP 153/83
[2017-12-14 15:40] VITALS: BP 155/86
[2017-12-14] MEDS ORDERED: MAPAP EXTRA ST500 MG PO (16:07)
[2017-12-14] MEDS ORDERED: ETODOLAC400 M2 PO (16:14)
[2017-12-14] MEDS ORDERED: ZESTRIL10 MG PO (16:16)
[2017-12-14] MEDS ORDERED: ZOLPIDEM10 MG PO (16:19)
[2017-12-14] MEDS ORDERED: PROCTOZONE-HC30 GM R (16:20)
[2017-12-14 16:49] VITALS: BP 140/68
[2017-12-14 17:00] VITALS: BP 150/88
[2017-12-14 20:00] VITALS: BP 130/75
[2017-12-15] VITALS: BP 132/78
[2017-12-15 06:20] LABS: BASO # 0.1 10*3/uL (0.0-0.1); BASO % 0.9 % (0.0-1.0); EOS # 0.2 10*3/uL (0.0-0.4); EOS % 2.9 % (1.0-4.0); HEMATOCRIT 47.1 % (42.0-52.0); HEMOGLOBIN 16.6 g/dl (14.0-18.0); LYMPH # 1.9 10*3/uL (1.3-4.4); LYMPH % 32.1 % (27.0-41.0); MEAN CELL VOLUME 91.3 fl (80.0-94.0); MEAN CORPUSCULAR HGB 32.2 pg (27.0-31.0); MEAN CORPUSCULAR HGB CONC 35.2 g/dl (33.0-37.0); MEAN PLATELET VOLUME 10.5 fl (9.6-12.3); MONO # 0.7 10*3/uL (0.1-1.0); MONO % 12.7 % (3.0-9.0); NEUT % 51.2 % (47.0-73.0); RED BLOOD COUNT 5.16 10*6/uL (4.50-5.90); RED CELL DISTRI WIDTH 12.8 % (0-14.5); WHITE BLOOD COUNT 5.8 10*3/uL (4.8-10.8)
[2017-12-15 06:23] LABS: PLATELET COUNT AUTOMATED 182 10*3/uL (130-400)
[2017-12-15 06:50] LABS: ALBUMIN 3.6 gm/dl (3.1-4.5); CHLORIDE 105 mmol/L (98-107); POTASSIUM 3.4 mmol/L (3.5-5.1); SODIUM 140 mmol/L (136-145)
[2017-12-15 06:56] LABS: ALKALINE PHOSPHATASE 54 U/L (45-117); BUN 17 mg/dl (7-24); CHOLESTEROL 185 mg/dL (<200); CREATININE 0.78 mg/dL (0.70-1.30); FREE T4 1.21 ng/dl (0.76-1.46); HDL CHOLESTEROL 35 mg/dl (40-60); LDL CHOLESTEROL 130 mg/dL (9-159); PHOSPHOROUS 4.5 mg/dL (2.5-4.9); SGOT/AST 11 IU/L (3-35); SGPT/ALT 18 U/L (12-78); TOTAL PROTEIN 6.7 gm/dL (6.4-8.2); TRIGLYCERIDES 98 mg/dl (<150); VLDL CHOLESTEROL 20 mg/dL (6-40)
[2017-12-15 08:00] VITALS: BP 123/78
[2017-12-15 12:00] VITALS: BP 118/52
[2017-12-15 16:00] VITALS: BP 133/47
[2017-12-16 16:45] LABS: VITAMIN D, 25-HYDROXY 22.9 ng/mL (30-100)
== END 2017-12-15 18:11 | disposition home or self-care (01) | DRG 313 ==
LOC: ED 13:33 → EDHOLD 15:03 → 5E 16:03
PROVIDERS: Emergency Medicine; Registered Nurse
DX: R07.89 Other chest pain (principal); I50.20 Unspecified systolic (congestive) heart failure; I25.119 Atherosclerotic heart disease of native coronary artery with unspecified angina pectoris; F17.210 Nicotine dependence, cigarettes, uncomplicated; F32.9 Major depressive disorder, single episode, unspecified; K21.9 Gastro-esophageal reflux disease without esophagitis; H54.61 Unqualified visual loss, right eye, normal vision left eye; I11.0 Hypertensive heart disease with heart failure; M19.90 Unspecified osteoarthritis, unspecified site; F41.8 Other specified anxiety disorders; E83.41 Hypermagnesemia; E80.6 Other disorders of bilirubin metabolism; J44.9 Chronic obstructive pulmonary disease, unspecified; Z87.01 Personal history of pneumonia (recurrent); Z88.8 Allergy status to other drugs, medicaments and biological substances; Z79.899 Other long term (current) drug therapy; Z86.718 Personal history of other venous thrombosis and embolism; Z98.42 Cataract extraction status, left eye; Z82.49 Family history of ischemic heart disease and other diseases of the circulatory system; Z83.3 Family history of diabetes mellitus; Z80.8 Family history of malignant neoplasm of other organs or systems; Z95.3 Presence of xenogenic heart valve

== ENCOUNTER 2017-12-17 13:12 | Emergency (ER) | payer MEDICAID ==
[~2017-12-17] VITALS: Ht 172.7 cm; Wt 82.6 kg
--- NOTE | ~2017-12-17 | EKG ---
[place], [place] ELECTROCARDIOGRAM REPORT NAME: LISSA RICHARD UNIT #: [id number] ROOM: DOCTOR: OCTAVIO DRAFT REPORT BIRTHDATE: [birth year] [facility] Test Date: 2017-12-17 Test Time: 14:05:31 Pat Name: LISSA RICHARD Department: Room: Gender: Roll Forming Supervisor: : 1960 Requested By: OSVALDO SORTO Order Number: [id number] Reading MD: Measurements Intervals [place] Rate: 67 P: 51 [place]: 152 QRS: 120 QRSD: 94 T: 36 QT: 375 QTc: 396 Interpretive Statements Sinus rhythm LAE, consider biatrial enlargement RVH with secondary repolarization abnrm Borderline ST elevation, lateral leads Compared to ECG 12/14/2017 19:49:20 ST (T wave) deviation now present CM:EKGRPT:ELECTROCARDIOGRAM REPORT 1405 1107 OSVALDO CUNNINGHAM DRAFT REPORT OSVALDO SORTO MD
[~2017-12-17 13:12] MED LIST changes: +MAPAP EXTRA ST500 MG PO; +PROCTOZONE-HC30 GM R; +ZOLPIDEM10 MG PO
[2017-12-17 14:10] LABS: BASO % 0.5 % (0.0-1.0); EOS # 0.1 10*3/uL (0.0-0.4); EOS % 0.9 % (1.0-4.0); HEMOGLOBIN 17.3 g/dl (14.0-18.0); LYMPH # 1.8 10*3/uL (1.3-4.4); LYMPH % 22.5 % (27.0-41.0); MEAN CELL VOLUME 91.6 fl (80.0-94.0); MEAN CORPUSCULAR HGB 32.3 pg (27.0-31.0); MEAN CORPUSCULAR HGB CONC 35.3 g/dl (33.0-37.0); MEAN PLATELET VOLUME 10.2 fl (9.6-12.3); MONO # 0.8 10*3/uL (0.1-1.0); MONO % 10.3 % (3.0-9.0); NEUT # 5.2 10*3/uL (2.3-7.9); NEUT % 65.7 % (47.0-73.0); PLATELET COUNT AUTOMATED 169 10*3/uL (130-400); RED BLOOD COUNT 5.35 10*6/uL (4.50-5.90); RED CELL DISTRI WIDTH 12.6 % (0-14.5)
[2017-12-17 14:20] LABS: ACT PARTIAL THROMBO TIME 26.6 SECONDS (20.8-31.5); INTERNATIONAL NORM RATIO 1.2 (2.0-3.5)
[2017-12-17 14:31] LABS: ALBUMIN 4.2 gm/dl (3.1-4.5); ALKALINE PHOSPHATASE 61 U/L (45-117); BUN 26 mg/dl (7-24); CHLORIDE 103 mmol/L (98-107); CREATININE 0.96 mg/dL (0.70-1.30); POTASSIUM 3.7 mmol/L (3.5-5.1); SGOT/AST 12 IU/L (3-35); SGPT/ALT 20 U/L (12-78); SODIUM 136 mmol/L (136-145); TOTAL PROTEIN 7.2 gm/dL (6.4-8.2)
[2017-12-17 14:32] LABS: TROPONIN I < 0.015 ng/ml (<0.045)
[2017-12-17 15:44] VITALS: BP 142/89
== END 2017-12-17 16:14 | disposition home or self-care (01) ==
LOC: ED 13:12
PROVIDERS: Emergency Medicine
DX: M79.605 Pain in left leg (principal); R10.9 Unspecified abdominal pain; R06.02 Shortness of breath; K21.9 Gastro-esophageal reflux disease without esophagitis; I11.0 Hypertensive heart disease with heart failure; I50.9 Heart failure, unspecified; I25.10 Atherosclerotic heart disease of native coronary artery without angina pectoris; J43.9 Emphysema, unspecified; F17.210 Nicotine dependence, cigarettes, uncomplicated; Z86.718 Personal history of other venous thrombosis and embolism; Z79.82 Long term (current) use of aspirin; Z88.6 Allergy status to analgesic agent; Z88.1 Allergy status to other antibiotic agents; Z79.899 Other long term (current) drug therapy

== ENCOUNTER → 2018-01-08 | Outpatient (CLI) | payer MEDICAID | END | disposition home or self-care (01) | LOC: ORTHO 01:28 | DX: S92.354D Nondisplaced fracture of fifth metatarsal bone, right foot, subsequent encounter for fracture with routine healing (principal); X58.XXXD Exposure to other specified factors, subsequent encounter ==

== ENCOUNTER → 2018-01-09 | Outpatient (CLI) | payer MEDICAID | END | disposition home or self-care (01) | LOC: US 07:09 | DX: K76.0 Fatty (change of) liver, not elsewhere classified (principal) ==

== ENCOUNTER → 2018-03-14 | Outpatient (CLI) | payer MEDICAID | END | disposition home or self-care (01) | LOC: ORTHO 04:27 | DX: S92.351D Displaced fracture of fifth metatarsal bone, right foot, subsequent encounter for fracture with routine healing (principal); X58.XXXD Exposure to other specified factors, subsequent encounter ==

== ENCOUNTER → 2018-05-16 | Outpatient (CLI) | payer MEDICAID ==
[~2018-05-16] MED LIST changes: +ANUSOL HC30 GM PO; +Bactroban Oint22 GM T; +DIAZEPAM10 M1 PO; +ELIQUIS5 M1 PO; +MELATONIN5 M1 PO; +ONDANSETRON ODT8 MG PO; +PREDNISONE10 MG PO; +PREDNISONE50 MG PO; +VENTOLIN 02.5 MG/3 M INH; +XANAX0.5 MG PO; +XANAX1 MG PO
== END | disposition home or self-care (01) ==
LOC: ORTHO 02:54
DX: M85.871 Other specified disorders of bone density and structure, right ankle and foot (principal)

== ENCOUNTER → 2018-07-31 | Outpatient (CLI) | payer MEDICAID ==
--- NOTE | ~2018-07-31 | EKG ---
[place], [place] ELECTROCARDIOGRAM REPORT NAME: LISSA RICHARD UNIT #: [id number] ROOM: DOCTOR: EPIPHANY DRAFT REPORT BIRTHDATE: [birth year] [facility] [place] Test Date: 2018-07-31 Test Time: 09:38:11 Pat Name: LISSA RICHARD Department: Room: Gender: Boom Crane Operator: : 1960 Requested By: FRANCES JEREZ Order Number: [id number] Reading MD: Madelin Amaya Measurements Intervals [place] Rate: 68 P: 57 MS: 148 QRS: 114 QRSD: 85 T: 55 QT: 396 QTc: 422 Interpretive Statements Sinus rhythm Anterior ST/T chagnes Compared to ECG 07/08/2018 02:36:27 No significant changes Electronically Signed On 08-03-2018 11:47:37 PDT by Madelin Amaya CM:EKGRPT:ELECTROCARDIOGRAM REPORT 0938 1147 FRANCES JEREZ EPIPHANY DRAFT REPORT FRANCES JEREZ
[2018-07-31 09:18] LABS: BASO # 0.1 10*3/uL (0.0-0.1); EOS # 0.2 10*3/uL (0.0-0.4); EOS % 3.4 % (1.0-4.0); HEMATOCRIT 51.7 % (42.0-52.0); HEMOGLOBIN 17.5 g/dl (14.0-18.0); LYMPH # 2.4 10*3/uL (1.3-4.4); LYMPH % 35.3 % (27.0-41.0); MEAN CELL VOLUME 93.3 fl (80.0-94.0); MEAN CORPUSCULAR HGB 31.6 pg (27.0-31.0); MEAN CORPUSCULAR HGB CONC 33.8 g/dl (33.0-37.0); MEAN PLATELET VOLUME 10.7 fl (9.6-12.3); MONO # 0.9 10*3/uL (0.1-1.0); MONO % 13.5 % (3.0-9.0); NEUT # 3.2 10*3/uL (2.3-7.9); NEUT % 46.7 % (47.0-73.0); PLATELET COUNT AUTOMATED 190 10*3/uL (130-400); RED BLOOD COUNT 5.54 10*6/uL (4.50-5.90); RED CELL DISTRI WIDTH 12.4 % (0-14.5); WHITE BLOOD COUNT 6.8 10*3/uL (4.8-10.8)
== END | disposition home or self-care (01) ==
LOC: LAB 08:43
DX: Z01.818 Encounter for other preprocedural examination (principal); G56.01 Carpal tunnel syndrome, right upper limb; J45.909 Unspecified asthma, uncomplicated; J44.9 Chronic obstructive pulmonary disease, unspecified; I25.10 Atherosclerotic heart disease of native coronary artery without angina pectoris

== ENCOUNTER 2018-09-28 13:32 | Emergency (ER) | payer MEDICAID ==
[~2018-09-28] VITALS: Ht 170.1 cm; Wt 87.1 kg
--- NOTE | ~2018-09-28 | EKG ---
[place], [place] ELECTROCARDIOGRAM REPORT NAME: LISSA RICHARD UNIT #: [id number] ROOM: DOCTOR: EPIPHANY DRAFT REPORT BIRTHDATE: [birth year] [facility] Test Date: 2018-09-28 Test Time: 14:10:24 Pat Name: LISSA RICHARD Department: Room: Gender: M Home Energy Consultant: SS RESP : 1960 Requested By: BUNNY ABDI DNP Order Number: [id number] Reading MD: Joon Salgado MD Measurements Intervals [place] Rate: 77 P: 66 MD: 143 QRS: 116 QRSD: 87 T: 47 QT: 372 QTc: 421 Interpretive Statements Sinus rhythm Left atrial enlargement Probable right ventricular hypertrophy Abnormal T, consider ischemia, anterior leads Borderline ST elevation, lateral leads Baseline wander in lead(s) V3,V6 Compared to ECG 08/29/2018 19:06:49 Atrial abnormality now present T-wave abnormality now present Possible ischemia now present ST (T wave) deviation now present Atrial fibrillation no longer present Electronically Signed On 10-02-2018 6:21:42 PDT by Joon Salgado MD CM:EKGRPT:ELECTROCARDIOGRAM REPORT 1410 0621 BUNNY CUNNINGHAM DRAFT REPORT BUNNY ABDI DNP
[~2018-09-28 13:32] MED LIST changes: -PREDNISONE50 MG PO
[2018-09-28 14:14] LABS: BASO # 0.1 10*3/uL (0.0-0.1); BASO % 0.8 % (0.0-1.0); EOS # 0.2 10*3/uL (0.0-0.4); EOS % 2.4 % (1.0-4.0); HEMATOCRIT 49.1 % (42.0-52.0); HEMOGLOBIN 17.1 g/dl (14.0-18.0); LYMPH # 2.6 10*3/uL (1.3-4.4); LYMPH % 42.3 % (27.0-41.0); MEAN CELL VOLUME 95.2 fl (80.0-94.0); MEAN CORPUSCULAR HGB 33.1 pg (27.0-31.0); MEAN CORPUSCULAR HGB CONC 34.8 g/dl (33.0-37.0); MONO # 0.8 10*3/uL (0.1-1.0); MONO % 12.2 % (3.0-9.0); NEUT # 2.6 10*3/uL (2.3-7.9); PLATELET COUNT AUTOMATED 188 10*3/uL (130-400); RED BLOOD COUNT 5.16 10*6/uL (4.50-5.90); RED CELL DISTRI WIDTH 13.6 % (0-14.5); WHITE BLOOD COUNT 6.2 10*3/uL (4.8-10.8)
[2018-09-28 14:24] LABS: ACT PARTIAL THROMBO TIME 29.9 SECONDS (20.0-32.1); INTERNATIONAL NORM RATIO 1.1 (2.0-3.5)
[2018-09-28 14:30] LABS: ALBUMIN 3.7 gm/dl (3.1-4.5); ALKALINE PHOSPHATASE 75 U/L (45-117); BUN 14 mg/dl (7-24); CHLORIDE 105 mmol/L (98-107); CREATININE 1.15 mg/dL (0.70-1.30); LIPASE 62 U/L (73-393); POTASSIUM 3.9 mmol/L (3.5-5.1); SGOT/AST 15 IU/L (3-35); SGPT/ALT 25 U/L (12-78); SODIUM 138 mmol/L (136-145); TOTAL PROTEIN 6.7 gm/dL (6.4-8.2)
[2018-09-28 14:31] LABS: TROPONIN I < 0.015 ng/ml (<0.045)
[2018-09-28 15:00] VITALS: BP 129/83
[2018-09-28] MEDS ORDERED: PREDNISONE50 MG PO (15:29)
[2018-09-28] MEDS ORDERED: NEURONTIN800 MG PO (15:29)
[2018-09-28] MEDS ORDERED: VICODIN 5-3001 EACH PO (15:29)
== END 2018-09-28 15:45 | disposition home or self-care (01) ==
LOC: ED 13:32
PROVIDERS: Nurse Practitioner Family
DX: B02.23 Postherpetic polyneuropathy (principal); J44.1 Chronic obstructive pulmonary disease with (acute) exacerbation; I25.10 Atherosclerotic heart disease of native coronary artery without angina pectoris; K21.9 Gastro-esophageal reflux disease without esophagitis; J44.9 Chronic obstructive pulmonary disease, unspecified; I50.9 Heart failure, unspecified; F17.200 Nicotine dependence, unspecified, uncomplicated; Z86.718 Personal history of other venous thrombosis and embolism; Z79.899 Other long term (current) drug therapy

== ENCOUNTER → 2018-10-08 | Outpatient (CLI) | payer MEDICAID ==
[~2018-10-08] MED LIST changes: +PREDNISONE50 MG PO
== END | disposition home or self-care (01) ==
LOC: ORTHO 00:21
DX: M25.552 Pain in left hip (principal)

== ENCOUNTER → 2018-10-23 | Outpatient (CLI) | payer MEDICAID ==
[2018-10-24 11:10] LABS: ALPHA-1-ANTITRYPSIN, SERUM 179 mg/dL (90-200)
== END | disposition home or self-care (01) ==
LOC: LAB 11:12
PROVIDERS: Internal Medicine Critical Care Medicine
DX: J44.9 Chronic obstructive pulmonary disease, unspecified (principal)

== ENCOUNTER 2018-12-19 12:32 | Inpatient (IN) | payer MEDICAID ==
[~2018-12-19] VITALS: Ht 170.2 cm; Wt 85.0 kg
--- NOTE | ~2018-12-19 | EKG ---
[place], [place] ELECTROCARDIOGRAM REPORT NAME: LISSA RICHARD UNIT #: [id number] ROOM: 531 DOCTOR: OCTAVIO DRAFT REPORT BIRTHDATE: [birth year] [facility] Test Date: 2018-12-19 Test Time: 13:07:48 Pat Name: LISSA RICHARD Department: Room: 531 Gender: M Cream Hauler: ADRIÁN : 1960 Requested By: CHRISTI TRAMMELL Order Number: [id number] Reading MD: Marcia Jones MD Measurements Intervals [place] Rate: 62 P: 61 ND: 155 QRS: 126 QRSD: 99 T: 55 QT: 409 QTc: 416 Interpretive Statements Sinus rhythm Ventricular premature complex Probable left atrial enlargement Consider right ventricular hypertrophy Abnormal T, consider ischemia, anterior leads Borderline ST elevation, lateral leads Compared to ECG 09/28/2018 14:10:24 Ventricular premature complex(es) now present T-wave abnormality still present Possible ischemia still present ST (T wave) deviation still present Electronically Signed On 12-20-2018 14:11:00 PDT by Marcia Jones MD CM:EKGRPT:ELECTROCARDIOGRAM REPORT 1307 1411 CHRISTI SCHOFIELD DRAFT REPORT CHRISTI TRAMMELL DO
--- NOTE | ~2018-12-19 | CON ---
[place], [place] REPORT OF CONSULTATION NAME: LISSA RICHARD [facility]: [id number] UNIT #: [id number] ROOM: 531 DOCTOR: DERRELL BOWDEN MD,GERRY BIRTHDATE: [birth year] DOS: 12/20/2018 REASON FOR CONSULTATION: Requested for assessment of current abnormal CT scan of the chest findings. HISTORY OF PRESENT ILLNESS: This is a 58-year-old white male patient who has been admitted to the hospital under care of the hospitalist service on the date of 12/19/2018. The patient has been admitted to the hospital as the patient has been reported Xanax or benzodiazepine/overdose. The patient admitted to the hospital, noted a quite poor historian. He has not been noted with any significant compromise or finding related to benzodiazepine toxicity last 24 hours of hospitalization. He has been noted chronic cough, small amount of sputum expectoration and symptoms of hemoptysis. The patient denies symptoms of chest pain at the present time, which is new. Denies symptoms of wheezing. Remaining systems reviewed was as follows. REVIEW OF SYSTEMS: CONSTITUTIONAL: Fatigue and tiredness reported. Denies symptoms of fever or chills. EYES: Denies any burning, redness, or tenderness. EARS, NOSE, THROAT SYMPTOMS: No sore throat, hoarseness, otalgia, postnasal drainage or epistaxis. EYES: Noted with blindness in one of the eyes. GASTROINTESTINAL SYMPTOMS: Denies dysphagia, nausea, vomiting, diarrhea, abdominal pain, hematemesis, melena or hematochezia. GENITOURINARY SYMPTOMS: No dysuria, suprapubic pain or hematuria. MUSCULOSKELETAL: No acute joint pain, redness, or tenderness. CENTRAL NERVOUS SYSTEM: No dizziness, headache, diplopia or syncopal episode. Remaining systems were reviewed. They were noted all negative. PAST MEDICAL HISTORY: Known is: 1. COPD. 2. Chronic calcification of the right small pleural fluid, which was considered benign, present for a long time. 3. Essential hypertension. 4. Past history of right-sided pneumothorax. 5. Scoliosis partially of the thoracic spine. 6. Congestive heart failure with preserved ejection fraction. 7. Chronic right corneal opacification with blindness. 8. History of deep venous thrombosis. 9. General anxiety disorder and depression. 10. History of aortic valve stenosis with replacement with porcine valve. PAST SURGICAL HISTORY: 1. Cardiac catheterization. 2. Porcine valve replacement of the aortic valve in the past. 3. Bronchoscopy. 4. Carpal tunnel surgery of the left wrist. [place], [place] REPORT OF CONSULTATION NAME: LISSA RICHARD UNIT #: [id number] ROOM: 531 DOCTOR: DERRELL BOWDEN MD,GERRY BIRTHDATE: [birth year] SOCIAL HISTORY: The patient lives at home. Denies any alcohol or illicit drug use. Tobacco use noted as 1 pack of cigarettes per day, active use. There is no history of alcohol use or illicit drug use reported. FAMILY HISTORY: Both parents are , the history was not known clearly by the patient. CURRENT MEDICATIONS: Administered were noted as loperamide, Lovenox for DVT prophylaxis, DuoNeb q. 4 hours, and some other p.r.n. meds. DRUG ALLERGIES: Noted as no known drug allergies. PHYSICAL EXAMINATION: GENERAL: A 58-year-old male patient currently comfortably sitting on the bed without any distress. Height of 5 feet 7 inches, weight 187 pounds, BMI 29. VITAL SIGNS: Normal temperature, respiratory rate between 19-18. Heart rate of 62-72. Blood pressure 149/89 to 121/83. Pulse oxygen saturation, 96% saturation at rest on room air. HEENT: Head was atraumatic. Eyes nonicterus. Corneal opacification of the right eye. Oral mucosa was moist. NECK: Supple. CARDIOVASCULAR: S1, S2 is audible. LUNGS: Noted for this patient with [id number] decreased breath sounds in the lungs bilaterally. There were no crackles, rhonchi or wheezing. ABDOMEN: Soft, flat, nontender, bowel sounds present. EXTREMITIES: Without acute edema. MUSCULOSKELETAL: Noted without any acute deformities. CENTRAL NERVOUS SYSTEM: Intact. LABORATORY DATA: CBC that was done on 12/19/2018 was noted essentially normal CBC. The urine drug screen positive for benzodiazepines. Lactic acid 1.2 on admission yesterday. CMP yesterday, noted completely normal yesterday. PT/INR was noted normal yesterday as well. CT scan of the head that was done yesterday on admission for the patient was noted with no acute intracranial abnormalities. Troponins 3 sets yesterday normal, ammonia level yesterday was noted as normal. The chest x-ray shows blunting of the right costophrenic angle with some pleural thickening. The CT scan of the chest for the patient without contrast shows chronic calcification of the pleura with a small pleural fluid and some other fibrotic changes in the right upper lobe for this patient. There were no discrete pulmonary nodule on any masses. IMPRESSION AND PLAN: 1. Chronic effusion, calcification, possibly related to pneumothorax, surgical intervention with pleurodesis is very likely cause with some fibrothorax. 2. Chronic obstructive pulmonary disease, stable without any evidence of acute exacerbation of chronic obstructive pulmonary disease. 3. Chronic nicotine dependence. 4. Resolution of the benzodiazepine toxicity. Plan of care. No additional assessment at this time will be needed. Outpatient assessment to be done for the patient post-discharge, recommended to the patient for the chronic [place], [place] REPORT OF CONSULTATION NAME: LISSA RICHARD UNIT #: [id number] ROOM: 531 DOCTOR: GERRY CASTILLO MD BIRTHDATE: 60 obstructive pulmonary disease management long-term. Counseling about tobacco cessation was done. GERRY DOVE MD CM:CONSTR:REPORT OF CONSULTATION 1454 12/21/18 0122 interface
[2018-12-19 12:33] VITALS: BP 122/63
[2018-12-19 13:35] VITALS: BP 122/70
[2018-12-19 13:36] LABS: BASO % 0.5 % (0.0-1.0); EOS # 0.1 10*3/uL (0.0-0.4); EOS % 1.9 % (1.0-4.0); HEMATOCRIT 51.1 % (42.0-52.0); HEMOGLOBIN 17.2 g/dl (14.0-18.0); LYMPH # 2.1 10*3/uL (1.3-4.4); LYMPH % 27.8 % (27.0-41.0); MEAN CELL VOLUME 96.4 fl (80.0-94.0); MEAN CORPUSCULAR HGB 32.5 pg (27.0-31.0); MEAN CORPUSCULAR HGB CONC 33.7 g/dl (33.0-37.0); MEAN PLATELET VOLUME 10.4 fl (9.6-12.3); MONO # 0.7 10*3/uL (0.1-1.0); MONO % 9.7 % (3.0-9.0); NEUT # 4.4 10*3/uL (2.3-7.9); NEUT % 59.8 % (47.0-73.0); PLATELET COUNT AUTOMATED 161 10*3/uL (130-400); RED CELL DISTRI WIDTH 11.9 % (0-14.5); WHITE BLOOD COUNT 7.4 10*3/uL (4.8-10.8)
[2018-12-19 13:37] LABS: BILIRUBIN NEGATIVE (NEGATIVE); BLOOD NEGATIVE (NEGATIVE); CLARITY CLEAR (CLEAR); COLOR YELLOW (YELLOW); GLUCOSE NEGATIVE (NEGATIVE); KETONE NEGATIVE (NEGATIVE); LEUKO ESTERASE NEGATIVE (NEGATIVE); NITRITE NEGATIVE (NEGATIVE); PH 5.5 (5.0-9.0)
[2018-12-19 13:47] LABS: MUCOUS 1+; URINE AMPHETAMINES < 1000 (1000ng/ml); URINE BARBITURATES < 200 (200ng/ml); URINE BENZODIAZEPINES > 200 (200ng/ml); URINE CANNABINOIDS (THC) < 50 (50ng/ml); URINE COCAINE < 300 (300ng/ml); URINE METHADONE < 300 (300ng/ml); URINE OPIATES < 300 (300ng/ml)
[2018-12-19 13:50] LABS: ALBUMIN 3.6 gm/dl (3.1-4.5); ALKALINE PHOSPHATASE 63 U/L (45-117); BUN 24 mg/dl (7-24); CHLORIDE 104 mmol/L (98-107); CREATININE 0.96 mg/dL (0.70-1.30); SGOT/AST 11 IU/L (3-35); SGPT/ALT 18 U/L (12-78); SODIUM 137 mmol/L (136-145); TOTAL PROTEIN 6.6 gm/dL (6.4-8.2)
[2018-12-19 13:50] LABS: URINE PHENCYCLIDINE < 25 (25ng/ml)
[2018-12-19 14:01] LABS: INTERNATIONAL NORM RATIO 1.1 (2.0-3.5)
--- NOTE | 2018-12-19 14:32 | NUR ---
PT REMAINS W/O ACUTE DISTRESS NOTED AWAITING ALL RESULTS FOR ADDITIONAL PLAN OF CARE,FAMILY @ BEDSIDE AND CALL LIGHT WITHIN REACH,NO ADDITIONAL COMPLAINTS VOICED.
[2018-12-19 15:01] VITALS: BP 116/70
[2018-12-19 16:00] VITALS: BP 140/88
--- NOTE | 2018-12-19 16:00 | NUR ---
A 58, admitted to , under the services of LARRY Reid DO with a diagnosis of BENZO. TOXICITY. Chief complaint is INCREASED LETHARGY LAST FEW DAYS AND MULTIPLE DIARRHEA STOOLS TODAY.. Patient arrived via stretcher from ER. Monitor applied. Initial assessment completed. Vital signs taken and recorded. LARRY REID DO notified of admission to the unit. Orders received. See assessment for past medical history, medications and allergies. Patient and/or family oriented to unit. [facility] visitation policy reviewed. Clothing/patient valuable form completed. ALBERTS
[2018-12-19] MEDS ORDERED: MOBIC7.5 MG PO (17:18)
[2018-12-19] MEDS ORDERED: PAXIL30 M2 PO (17:19)
--- NOTE | 2018-12-19 17:45 | NUR ---
MEDREC UPDATED FROM RACHEL DAMON AND PT. PT NOT SURE WHICH INHALERS HE TAKES. HE STATES "I TAKE AND RED ONE, A BLUE ONE, AND ONE WITH A PILL THAT I INHALE." I CALLED HIS GIRLFRIEND FOR CLARIFICATION AND SHE WAS UNABLE TO FIND THEM BUT WILL LOKK AND BRING THEM IN WITH HER TOMORROW.
[2018-12-19 20:00] VITALS: BP 121/83
[2018-12-20] VITALS: BP 126/76
[2018-12-20 06:28] LABS: ALBUMIN 3.3 gm/dl (3.1-4.5); ALKALINE PHOSPHATASE 62 U/L (45-117); BUN 23 mg/dl (7-24); CHLORIDE 107 mmol/L (98-107); CHOLESTEROL 155 mg/dL (<200); CREATININE 0.79 mg/dL (0.70-1.30); HDL CHOLESTEROL 32 mg/dl (40-60); LDL CHOLESTEROL 102 mg/dL (9-159); PHOSPHOROUS 3.6 mg/dL (2.5-4.9); POTASSIUM 3.5 mmol/L (3.5-5.1); SGOT/AST 10 IU/L (3-35); SGPT/ALT 17 U/L (12-78); SODIUM 139 mmol/L (136-145); TRIGLYCERIDES 107 mg/dl (<150); VLDL CHOLESTEROL 21 mg/dL (6-40)
[2018-12-20 06:32] LABS: THYROID STIM HORMONE (HS) 0.552 uIU/ml (0.358-4.75)
[2018-12-20 06:38] LABS: BASO # 0.1 10*3/uL (0.0-0.1); BASO % 1.1 % (0.0-1.0); EOS # 0.2 10*3/uL (0.0-0.4); EOS % 2.9 % (1.0-4.0); HEMATOCRIT 49.6 % (42.0-52.0); HEMOGLOBIN 16.7 g/dl (14.0-18.0); LYMPH # 2.3 10*3/uL (1.3-4.4); LYMPH % 40.1 % (27.0-41.0); MEAN CELL VOLUME 95.6 fl (80.0-94.0); MEAN CORPUSCULAR HGB 32.2 pg (27.0-31.0); MEAN CORPUSCULAR HGB CONC 33.7 g/dl (33.0-37.0); MEAN PLATELET VOLUME 10.7 fl (9.6-12.3); MONO # 0.6 10*3/uL (0.1-1.0); MONO % 11.4 % (3.0-9.0); NEUT # 2.5 10*3/uL (2.3-7.9); NEUT % 44.3 % (47.0-73.0); PLATELET COUNT AUTOMATED 157 10*3/uL (130-400); RED BLOOD COUNT 5.19 10*6/uL (4.50-5.90); RED CELL DISTRI WIDTH 11.9 % (0-14.5); WHITE BLOOD COUNT 5.6 10*3/uL (4.8-10.8)
[2018-12-20 07:19] LABS: INTERNATIONAL NORM RATIO 1.1 (2.0-3.5)
[2018-12-20 07:58] LABS: VITAMIN D, 25-HYDROXY 19.7 ng/mL (30-100)
[2018-12-20 08:00] VITALS: BP 146/89
--- NOTE | 2018-12-20 08:00 | NUR ---
Patient resting quietly with no c/o discomfort. Respirations easy and regular. Vital signs stable. No overt distress. SATYA MCKEON
--- NOTE | 2018-12-20 08:07 | NUR ---
24 HR chart check completed.
--- NOTE | 2018-12-20 09:51 | NUR ---
MEDICATED WITH IV ZOFRAN ORDERED PER PT REQUEST FOR C/O NAUSEA.
--- NOTE | 2018-12-20 11:37 | NUR ---
MEDICATED WITH PO TYLENOL AND IMODIUM ORDERED PER PT REQUEST FOR C/O HEADACHE AND DIARRHEA. MEDICATION FOR NAUSEA NOT EFFECTIVE THUS FAR. DR DOVE NOTIFIED OF CONSULT.
[2018-12-20 12:00] VITALS: BP 145/89
--- NOTE | 2018-12-20 14:00 | NUR ---
MEDICATION EFFECTIVE FOR NAUSEA/HEADACHE.
--- NOTE | 2018-12-20 15:00 | NUR ---
LEFT WITHOUT TELLING NURSE TIME OF DEPARTURE. DISCHARGE PAPERS WERE PREVIOUSLY SIGNED.
== END 2018-12-20 15:00 | disposition home or self-care (01) | DRG 812 ==
LOC: ED 12:32 → EDHOLD 14:44 → 5E 15:06
PROVIDERS: Hospitalist; Internal Medicine; ADMIT Emergency Medicine
DX: T42.4X1A Poisoning by benzodiazepines, accidental (unintentional), initial encounter (principal); J69.0 Pneumonitis due to inhalation of food and vomit; R82.2 Biliuria; J93.9 Pneumothorax, unspecified; I48.0 Paroxysmal atrial fibrillation; I11.0 Hypertensive heart disease with heart failure; I50.22 Chronic systolic (congestive) heart failure; I25.10 Atherosclerotic heart disease of native coronary artery without angina pectoris; F32.9 Major depressive disorder, single episode, unspecified; M19.91 Primary osteoarthritis, unspecified site; M41.9 Scoliosis, unspecified; M19.90 Unspecified osteoarthritis, unspecified site; H54.61 Unqualified visual loss, right eye, normal vision left eye; F41.1 Generalized anxiety disorder; K21.9 Gastro-esophageal reflux disease without esophagitis; J43.9 Emphysema, unspecified; Z95.3 Presence of xenogenic heart valve; Z98.42 Cataract extraction status, left eye; Z86.718 Personal history of other venous thrombosis and embolism; Z83.3 Family history of diabetes mellitus; Z82.49 Family history of ischemic heart disease and other diseases of the circulatory system; Z80.9 Family history of malignant neoplasm, unspecified; Y92.89 Other specified places as the place of occurrence of the external cause; Z79.899 Other long term (current) drug therapy; Z71.6 Tobacco abuse counseling

== ENCOUNTER 2019-01-20 12:57 | Emergency (ER) | payer MEDICAID ==
[~2019-01-20 12:57] MED LIST changes: +MOBIC7.5 MG PO; +PAXIL30 M2 PO
[2019-01-20 13:19] VITALS: BP 155/89
[2019-01-20] MEDS ORDERED: AUGMENTIN 875875 MG PO (14:33)
[2019-01-20] MEDS ORDERED: ZYRTEC10 MG PO (14:33)
== END 2019-01-20 14:54 | disposition home or self-care (01) ==
LOC: ED 12:57
DX: J32.9 Chronic sinusitis, unspecified (principal); H92.01 Otalgia, right ear; Z79.899 Other long term (current) drug therapy; Z87.891 Personal history of nicotine dependence

== ENCOUNTER 2019-04-01 09:37 | Emergency (ER) | payer MEDICAID ==
[~2019-04-01] VITALS: Ht 172.7 cm
[~2019-04-01 09:37] MED LIST changes: +AUGMENTIN 875875 MG PO; +ZYRTEC10 MG PO
[2019-04-01] MEDS ORDERED: ACYCLOVIR800 MG PO (10:08)
[2019-04-01] MEDS ORDERED: NORCO 5-325 TA1 EACH PO (10:08)
== END 2019-04-01 10:26 | disposition home or self-care (01) ==
LOC: ED 09:37
DX: B02.9 Zoster without complications (principal); K21.9 Gastro-esophageal reflux disease without esophagitis; I25.10 Atherosclerotic heart disease of native coronary artery without angina pectoris; J45.909 Unspecified asthma, uncomplicated; I50.9 Heart failure, unspecified; F17.200 Nicotine dependence, unspecified, uncomplicated; Z79.2 Long term (current) use of antibiotics; Z79.899 Other long term (current) drug therapy; Z98.61 Coronary angioplasty status

== ENCOUNTER → 2019-04-17 | Outpatient (CLI) | payer MEDICAID ==
[~2019-04-17] MED LIST changes: +ACYCLOVIR800 MG PO
== END | disposition home or self-care (01) ==
LOC: RESCLI 00:27
DX: B02.9 Zoster without complications (principal); I10 Essential (primary) hypertension; J43.9 Emphysema, unspecified; Z88.8 Allergy status to other drugs, medicaments and biological substances; Z79.899 Other long term (current) drug therapy

== ENCOUNTER → 2019-04-30 | Outpatient (CLI) | payer MEDICAID | END | disposition home or self-care (01) | LOC: RESCLI 01:11 | DX: I11.0 Hypertensive heart disease with heart failure (principal); I50.20 Unspecified systolic (congestive) heart failure; S92.351K Displaced fracture of fifth metatarsal bone, right foot, subsequent encounter for fracture with nonunion; J43.8 Other emphysema; E55.9 Vitamin D deficiency, unspecified; M79.671 Pain in right foot; M17.9 Osteoarthritis of knee, unspecified; M70.41 Prepatellar bursitis, right knee; B02.9 Zoster without complications; J43.9 Emphysema, unspecified; M70.42 Prepatellar bursitis, left knee; M25.571 Pain in right ankle and joints of right foot; M76.892 Other specified enthesopathies of left lower limb, excluding foot; Z79.899 Other long term (current) drug therapy; X58.XXXD Exposure to other specified factors, subsequent encounter; Z88.8 Allergy status to other drugs, medicaments and biological substances ==

== ENCOUNTER 2019-07-25 18:19 | Emergency (ER) | payer MEDICAID ==
[~2019-07-25] VITALS: Ht 172.7 cm; Wt 86.2 kg
[2019-07-25 19:31] LABS: BASO # 0.1 10*3/uL (0.0-0.1); BASO % 0.6 % (0.0-1.0); EOS # 0.1 10*3/uL (0.0-0.4); EOS % 1.6 % (1.0-4.0); HEMATOCRIT 48.3 % (42.0-52.0); LYMPH # 2.2 10*3/uL (1.3-4.4); LYMPH % 27.8 % (27.0-41.0); MEAN CELL VOLUME 92.9 fl (80.0-94.0); MEAN CORPUSCULAR HGB 32.7 pg (27.0-31.0); MEAN CORPUSCULAR HGB CONC 35.2 g/dl (33.0-37.0); MEAN PLATELET VOLUME 9.7 fl (9.6-12.3); MONO # 0.7 10*3/uL (0.1-1.0); MONO % 8.8 % (3.0-9.0); NEUT # 4.8 10*3/uL (2.3-7.9); NEUT % 60.9 % (47.0-73.0); PLATELET COUNT AUTOMATED 183 10*3/uL (130-400); RED CELL DISTRI WIDTH 12.3 % (0-14.5)
[2019-07-25 19:40] LABS: ACT PARTIAL THROMBO TIME 30.2 SECONDS (20.0-32.1); INTERNATIONAL NORM RATIO 1.1 (2.0-3.5)
[2019-07-25 19:48] LABS: ALBUMIN 3.7 gm/dl (3.1-4.5); ALKALINE PHOSPHATASE 69 U/L (45-117); BUN 17 mg/dl (7-24); CHLORIDE 105 mmol/L (98-107); CREATININE 0.82 mg/dL (0.70-1.30); POTASSIUM 3.8 mmol/L (3.5-5.1); SGOT/AST 16 IU/L (3-35); SGPT/ALT 28 U/L (12-78); SODIUM 137 mmol/L (136-145); TOTAL PROTEIN 6.5 gm/dL (6.4-8.2)
[2019-07-25 19:49] LABS: TROPONIN I < 0.015 ng/ml (<0.045)
[2019-07-25 23:23] VITALS: BP 129/73
[2019-07-25 23:47] LABS: URINE AMPHETAMINES < 1000 (1000ng/ml); URINE BARBITURATES < 200 (200ng/ml); URINE BENZODIAZEPINES > 200 (200ng/ml); URINE CANNABINOIDS (THC) < 50 (50ng/ml); URINE COCAINE < 300 (300ng/ml); URINE METHADONE < 300 (300ng/ml); URINE OPIATES < 300 (300ng/ml)
[2019-07-25] MEDS ORDERED: NORCO 5-325 TA1 EACH PO (23:47)
[2019-07-25 23:48] LABS: URINE PHENCYCLIDINE < 25 (25ng/ml)
[2019-07-25 23:59] LABS: BACTERIA 1+; BILIRUBIN NEGATIVE (NEGATIVE); BLOOD NEGATIVE (NEGATIVE); CLARITY CLEAR (CLEAR); COLOR YELLOW (YELLOW); GLUCOSE NEGATIVE (NEGATIVE); KETONE NEGATIVE (NEGATIVE); LEUKO ESTERASE TRACE (NEGATIVE); MUCOUS 1+; NITRITE NEGATIVE (NEGATIVE); SPECIFIC GRAVITY 1.015 (1.005-1.030)
== END 2019-07-26 01:11 | disposition home or self-care (01) ==
LOC: ED 18:19
PROVIDERS: Emergency Medicine Emergency Medical Services
DX: G89.29 Other chronic pain (principal); M54.2 Cervicalgia; R26.2 Difficulty in walking, not elsewhere classified; K21.9 Gastro-esophageal reflux disease without esophagitis; I25.10 Atherosclerotic heart disease of native coronary artery without angina pectoris; J45.909 Unspecified asthma, uncomplicated; I50.9 Heart failure, unspecified; F17.200 Nicotine dependence, unspecified, uncomplicated; Z79.899 Other long term (current) drug therapy; Z98.890 Other specified postprocedural states

== ENCOUNTER 2019-09-16 00:07 | Inpatient (IN) | payer MEDICAID ==
[~2019-09-16] VITALS: Ht 172.7 cm; Wt 88.6 kg
[2019-09-16] VITALS (39 sets, daily range): BP systolic 91–158; BP diastolic 51–118
[2019-09-16 00:45] LABS: BASO # 0.1 10*3/uL (0.0-0.1); BASO % 0.6 % (0.0-1.0); EOS # 0.2 10*3/uL (0.0-0.4); EOS % 2.3 % (1.0-4.0); LYMPH # 3.4 10*3/uL (1.3-4.4); LYMPH % 34.9 % (27.0-41.0); MEAN CELL VOLUME 93.1 fl (80.0-94.0); MEAN CORPUSCULAR HGB 32.4 pg (27.0-31.0); MEAN CORPUSCULAR HGB CONC 34.8 g/dl (33.0-37.0); MEAN PLATELET VOLUME 10.7 fl (9.6-12.3); MONO # 1.1 10*3/uL (0.1-1.0); MONO % 11.1 % (3.0-9.0); NEUT % 50.9 % (47.0-73.0); PLATELET COUNT AUTOMATED 214 10*3/uL (130-400); RED BLOOD COUNT 5.37 10*6/uL (4.50-5.90); WHITE BLOOD COUNT 9.8 10*3/uL (4.8-10.8)
[2019-09-16 00:56] LABS: ACT PARTIAL THROMBO TIME 28.9 SECONDS (20.0-32.1); INTERNATIONAL NORM RATIO 1.1 (2.0-3.5)
[2019-09-16 01:34] LABS: ALBUMIN 3.9 gm/dl (3.1-4.5); ALKALINE PHOSPHATASE 69 U/L (45-117); BUN 26 mg/dl (7-24); CHLORIDE 109 mmol/L (98-107); CREATININE 1.01 mg/dL (0.70-1.30); POTASSIUM 3.6 mmol/L (3.5-5.1); SGOT/AST 22 IU/L (3-35); SGPT/ALT 32 U/L (12-78); SODIUM 139 mmol/L (136-145); TOTAL PROTEIN 7.1 gm/dL (6.4-8.2)
[2019-09-16 01:35] LABS: TROPONIN I < 0.015 ng/ml (<0.045)
[2019-09-16 06:17] LABS: BASO # 0.1 10*3/uL (0.0-0.1); BASO % 0.6 % (0.0-1.0); EOS # 0.2 10*3/uL (0.0-0.4); EOS % 2.9 % (1.0-4.0); HEMATOCRIT 48.1 % (42.0-52.0); LYMPH % 35.5 % (27.0-41.0); MEAN CELL VOLUME 94.7 fl (80.0-94.0); MEAN CORPUSCULAR HGB 32.3 pg (27.0-31.0); MEAN CORPUSCULAR HGB CONC 34.1 g/dl (33.0-37.0); MEAN PLATELET VOLUME 10.2 fl (9.6-12.3); MONO # 0.9 10*3/uL (0.1-1.0); NEUT # 4.2 10*3/uL (2.3-7.9); NEUT % 49.8 % (47.0-73.0); PLATELET COUNT AUTOMATED 197 10*3/uL (130-400); RED BLOOD COUNT 5.08 10*6/uL (4.50-5.90); WHITE BLOOD COUNT 8.4 10*3/uL (4.8-10.8)
[2019-09-16 06:27] LABS: ALBUMIN 3.6 gm/dl (3.1-4.5); ALKALINE PHOSPHATASE 68 U/L (45-117); BUN 27 mg/dl (7-24); CHLORIDE 108 mmol/L (98-107); CHOLESTEROL 165 mg/dL (<200); CREATININE 0.96 mg/dL (0.70-1.30); FREE T4 1.14 ng/dl (0.76-1.46); HDL CHOLESTEROL 33 mg/dl (40-60); LDL CHOLESTEROL 106 mg/dL (9-159); POTASSIUM 3.4 mmol/L (3.5-5.1); SGOT/AST 20 IU/L (3-35); SGPT/ALT 29 U/L (12-78); SODIUM 139 mmol/L (136-145); TOTAL PROTEIN 6.6 gm/dL (6.4-8.2); TRIGLYCERIDES 132 mg/dl (<150); VLDL CHOLESTEROL 26 mg/dL (6-40)
[2019-09-16 07:49] LABS: VITAMIN D, 25-HYDROXY 34.8 ng/mL (30-100)
[2019-09-17] VITALS: BP 100/61
[2019-09-17 01:59] VITALS: BP 116/60
[2019-09-17 04:01] VITALS: BP 125/71
[2019-09-17 06:00] VITALS: BP 129/57
[2019-09-17 06:05] LABS: BUN 34 mg/dl (7-24); CHLORIDE 109 mmol/L (98-107); CREATININE 0.89 mg/dL (0.70-1.30); SODIUM 137 mmol/L (136-145)
[2019-09-17 08:00] VITALS: BP 116/50; BP 131/60
[2019-09-17 12:00] VITALS: BP 117/79
[2019-09-17] MEDS ORDERED: PHARMASSURE V500 MCG PO (12:44)
[2019-09-17] MEDS ORDERED: PACERONE200 MG PO ×2 (12:44)
== END 2019-09-17 13:30 | disposition short-term general hospital (02) | DRG 201 ==
LOC: ED 00:07 → ICCU 03:17 → EDHOLD 03:17 → ICCU 04:06
PROVIDERS: Emergency Medicine; Internal Medicine; Student in an Organized Health Care Education/Training Program; ADMIT Internal Medicine
DX: I47.2 Ventricular tachycardia (principal); I25.10 Atherosclerotic heart disease of native coronary artery without angina pectoris; E83.41 Hypermagnesemia; R73.9 Hyperglycemia, unspecified; K21.9 Gastro-esophageal reflux disease without esophagitis; M19.90 Unspecified osteoarthritis, unspecified site; H54.40 Blindness, one eye, unspecified eye; I83.90 Asymptomatic varicose veins of unspecified lower extremity; G89.29 Other chronic pain; G56.00 Carpal tunnel syndrome, unspecified upper limb; J84.9 Interstitial pulmonary disease, unspecified; J43.9 Emphysema, unspecified; F17.210 Nicotine dependence, cigarettes, uncomplicated; B02.29 Other postherpetic nervous system involvement; R65.10 Systemic inflammatory response syndrome (SIRS) of non-infectious origin without acute organ dysfunction; I48.0 Paroxysmal atrial fibrillation; I38 Endocarditis, valve unspecified; I11.0 Hypertensive heart disease with heart failure; I50.32 Chronic diastolic (congestive) heart failure; E87.8 Other disorders of electrolyte and fluid balance, not elsewhere classified; F41.8 Other specified anxiety disorders; D75.89 Other specified diseases of blood and blood-forming organs; E87.6 Hypokalemia; E53.8 Deficiency of other specified B group vitamins; E44.1 Mild protein-calorie malnutrition; Z82.49 Family history of ischemic heart disease and other diseases of the circulatory system; Z83.3 Family history of diabetes mellitus; Z71.6 Tobacco abuse counseling; Z80.9 Family history of malignant neoplasm, unspecified; Q22.1 Congenital pulmonary valve stenosis; Z68.1 Body mass index [BMI] 19.9 or less, adult

== ENCOUNTER 2019-11-13 00:07 | Observation (INO) | payer MEDICAID ==
[~2019-11-13] VITALS: Ht 172.7 cm; Wt 89.1 kg
[~2019-11-13 00:07] MED LIST changes: +PACERONE200 MG PO; +PHARMASSURE V500 MCG PO
[2019-11-13 00:09] VITALS: BP 118/64
[2019-11-13 00:30] LABS: BASO # 0.1 10*3/uL (0.0-0.1); BASO % 0.7 % (0.0-1.0); EOS # 0.1 10*3/uL (0.0-0.4); EOS % 0.8 % (1.0-4.0); HEMATOCRIT 34.6 % (42.0-52.0); LYMPH # 2.1 10*3/uL (1.3-4.4); LYMPH % 24.3 % (27.0-41.0); MEAN CELL VOLUME 95.1 fl (80.0-94.0); MEAN CORPUSCULAR HGB 29.7 pg (27.0-31.0); MEAN CORPUSCULAR HGB CONC 31.2 g/dl (33.0-37.0); MEAN PLATELET VOLUME 10.7 fl (9.6-12.3); MONO # 1.4 10*3/uL (0.1-1.0); MONO % 15.3 % (3.0-9.0); NEUT # 5.2 10*3/uL (2.3-7.9); NEUT % 58.7 % (47.0-73.0); PLATELET COUNT AUTOMATED 307 10*3/uL (130-400); RED BLOOD COUNT 3.64 10*6/uL (4.50-5.90); RED CELL DISTRI WIDTH 13.7 % (0-14.5); WHITE BLOOD COUNT 8.8 10*3/uL (4.8-10.8)
[2019-11-13 00:42] LABS: ACT PARTIAL THROMBO TIME 30.9 SECONDS (20.0-32.1); INTERNATIONAL NORM RATIO 1.3 (2.0-3.5)
[2019-11-13 00:49] LABS: ALBUMIN 3.4 gm/dl (3.1-4.5); ALKALINE PHOSPHATASE 147 U/L (45-117); BUN 19 mg/dl (7-24); CHLORIDE 107 mmol/L (98-107); SGOT/AST 13 IU/L (3-35); SGPT/ALT 23 U/L (12-78); SODIUM 137 mmol/L (136-145); TOTAL PROTEIN 6.9 gm/dL (6.4-8.2)
[2019-11-13 00:51] LABS: TROPONIN I < 0.015 ng/ml (<0.045)
--- NOTE | 2019-11-13 01:45 | NUR ---
PT REQUESTING MEDICATION FOR PAIN. STATES THAT HE HAS A PAIN OF 9/10 ON THE RIGHT SIDE OF CHEST. EXTERNAL PACE MAKER INTACT. DR BOWDEN INFORMED OF PAIN. WILL CONTINUE TO MONITOR.
[2019-11-13 02:32] VITALS: BP 106/55
[2019-11-13 03:45] VITALS: BP 122/58
--- NOTE | 2019-11-13 03:45 | NUR ---
A 59, admitted to , under the services of CATRACHO Francisco DO with a diagnosis of CHEST PAIN. Chief complaint is CHEST PAIN/SHORTNESS OF BREATH. Patient arrived via bed from ER. Monitor applied. Initial assessment completed. Vital signs taken and recorded. CATRACHO FRANCISCO DO notified of admission to the unit. Orders received. See assessment for past medical history, medications and allergies. Patient and/or family oriented to unit. [facility] visitation policy reviewed. Clothing/patient valuable form completed. EMMANUEL FOURNIER
[2019-11-13] MEDS ORDERED: ASPIRIN CHEWABL81 MG PO (04:17)
[2019-11-13] MEDS ORDERED: FAMOTIDINE20 M1 PO (04:18)
[2019-11-13] MEDS ORDERED: METOPROLOL SUCC50 M1 PO (04:18)
[2019-11-13] MEDS ORDERED: MEXILETINE HCL150 MG PO (04:19)
[2019-11-13] MEDS ORDERED: ATORVASTATIN CA40 M1 PO (04:20)
[2019-11-13] MEDS ORDERED: MELATONIN3 MG PO (04:21)
[2019-11-13] MEDS ORDERED: MAGNESIUM400 M1 PO (04:22)
[2019-11-13] MEDS ORDERED: Magnesium Oxid400 MG PO (04:22)
--- NOTE | 2019-11-13 04:47 | NUR ---
ONLY ABLE TO VERIFY MEDICATION DOSAGE AND FREQUENCY ON CERTAIN MEDICATIONS. OTHER MEDICATIONS LISTED ONLY PROVIDED DOSAGE. PATIENT STATED TO CALL [facility] AND THEY WILL HAVE THE COMPLETE LIST OF HIS MEDICATIONS AND HOW OFTEN HE TAKES THEM
--- NOTE | 2019-11-13 06:35 | NUR ---
NOTIFIED DR. GOMEZ OF PATIENTS REVIEWED MEDICATIONS. NOTIFIED HER THAT PATIENT BROUGHT IN A BAG WITH PRESCRIPTIONS ON IT BUT SOME OF THEM DO NOT HAVE FREQUENCY. AND PATIENT ALSO STATED HE TAKES "XANAX AND A PAIN PILL". BUT IS UNSURE OF FREQUENCY AND WHAT THE PAIN PILL EVEN IS. PATIENT STATES HE GOES TO [facility] AND THAT WE CAN CALL THEM AND GET HIS FOR SURE LIST
--- NOTE | 2019-11-13 06:42 | NUR ---
DR. UNGER ANSWERING SERVICE NOTIFIED OF CONSULT
--- NOTE | 2019-11-13 06:44 | NUR ---
DR. UNGER IN [place] AT [place], MESSAGE LEFT WITH NURSE FOR NEW CONSULT
--- NOTE | 2019-11-13 06:50 | NUR ---
NOTIFIED DR. CESAR'S ANSWERING SERVICE OF [facility]
[2019-11-13 07:05] LABS: BASO # 0.1 10*3/uL (0.0-0.1); BASO % 0.9 % (0.0-1.0); EOS # 0.1 10*3/uL (0.0-0.4); EOS % 1.4 % (1.0-4.0); HEMATOCRIT 38.5 % (42.0-52.0); LYMPH # 2.8 10*3/uL (1.3-4.4); LYMPH % 32.9 % (27.0-41.0); MEAN CELL VOLUME 92.8 fl (80.0-94.0); MEAN CORPUSCULAR HGB 29.6 pg (27.0-31.0); MEAN CORPUSCULAR HGB CONC 31.9 g/dl (33.0-37.0); MEAN PLATELET VOLUME 10.7 fl (9.6-12.3); MONO # 1.4 10*3/uL (0.1-1.0); NEUT # 4.1 10*3/uL (2.3-7.9); NEUT % 48.6 % (47.0-73.0); PLATELET COUNT AUTOMATED 334 10*3/uL (130-400); RED BLOOD COUNT 4.15 10*6/uL (4.50-5.90); RED CELL DISTRI WIDTH 13.8 % (0-14.5); WHITE BLOOD COUNT 8.5 10*3/uL (4.8-10.8)
[2019-11-13 07:21] LABS: ALBUMIN 3.9 gm/dl (3.1-4.5); ALKALINE PHOSPHATASE 171 U/L (45-117); BUN 16 mg/dl (7-24); CHLORIDE 104 mmol/L (98-107); CREATININE 1.11 mg/dL (0.70-1.30); POTASSIUM 3.4 mmol/L (3.5-5.1); SGOT/AST 14 IU/L (3-35); SGPT/ALT 25 U/L (12-78); SODIUM 137 mmol/L (136-145)
[2019-11-13] MEDS ORDERED: TRAMADOL HCL50 MG PO (07:31)
[2019-11-13] MEDS ORDERED: FLOVENT HFA12 GM INH (07:37)
[2019-11-13] MEDS ORDERED: CALCIUM 500 MG1 EACH PO (07:40)
[2019-11-13 08:00] VITALS: BP 112/64
--- NOTE | 2019-11-13 10:01 | NUR ---
NORCO GIVEN FOR C/O LEFT ARM PAIN - DRESSING TO LEFT ARM CHANGED PER ORDERS. STERNAL DRESSING CHANGED.. DR UNGER, DR PAGE (ID RESIDENT), AND DR CHRISTINA (IM RESIDENT) IN AND SPOKE WITH THE PATIENT
--- NOTE | 2019-11-13 11:30 | NUR ---
JESUS ROWAN TAX ACCOUNTING MANAGER NOTIFIED FO CONSULT & PATIENT BEING TRANSFERRED OUT AT 1400 TODAY FOR STERNAL ABCESS
--- NOTE | 2019-11-13 11:32 | NUR ---
POSIATRY HERE TO SEE PATIENT AND NOTIFIED OF TRANSFER OUT AT 1400
--- NOTE | 2019-11-13 11:51 | NUR ---
RESTING EYES CLOSED
[2019-11-13 12:00] VITALS: BP 118/62
--- NOTE | 2019-11-13 12:27 | NUR ---
PT SLEEPING UPON ENTERING THE ROOM
--- NOTE | 2019-11-13 12:58 | NUR ---
MORPHINE GIVEN FOR C/O LEFT ARM PAIN.. PATIENT WANTED TO KNOW HOW MUCH AND ASKED "IS THAT ALL" ARRIVAL TIME OF AMBULANCE DISCUSSED. PATIENT EATING LUNCH
--- NOTE | 2019-11-13 13:43 | NUR ---
Per patient pain is better but still 5/10 but more if ou touch it.. [facility] here..Report called to [facility] [phone] staff..
== END 2019-11-13 14:14 | disposition short-term general hospital (02) ==
LOC: ED 00:07 → EDHOLD 02:24 → 5E 02:24
PROVIDERS: Emergency Medicine; Internal Medicine; ADMIT Family Medicine; ATTEND Family Medicine
DX: R07.89 Other chest pain (principal); D53.9 Nutritional anemia, unspecified; R74.8 Abnormal levels of other serum enzymes; E83.41 Hypermagnesemia; D68.9 Coagulation defect, unspecified; R73.9 Hyperglycemia, unspecified; I10 Essential (primary) hypertension; I25.10 Atherosclerotic heart disease of native coronary artery without angina pectoris; I11.0 Hypertensive heart disease with heart failure; I50.9 Heart failure, unspecified; F41.8 Other specified anxiety disorders; M19.90 Unspecified osteoarthritis, unspecified site; K21.9 Gastro-esophageal reflux disease without esophagitis; J84.9 Interstitial pulmonary disease, unspecified; I48.91 Unspecified atrial fibrillation; J44.9 Chronic obstructive pulmonary disease, unspecified; M79.2 Neuralgia and neuritis, unspecified

== ENCOUNTER 2019-12-17 10:18 | Observation (INO) | payer MEDICAID ==
[~2019-12-17] VITALS: Ht 172.7 cm; Wt 84.6 kg
--- NOTE | 2019-12-17 10:35 | NUR ---
WOUNDS: PT REPORTS HAVING A "FISH SCALE" DRESSING TO LEFT FOREARM. PT ADAMANTLY REFUSES THAT THE DRESSING NOT BE REMOVED AND REFUSES PHOTO.
--- NOTE | 2019-12-17 12:55 | NUR ---
ROOM ASSIGNED, RESIDENTS AT BEDSIDE.
[2019-12-17 13:15] VITALS: BP 123/73
--- NOTE | 2019-12-17 13:15 | NUR ---
A 59YO MALE, admitted to , under the services of ADRI Joy DO with a diagnosis of CHEST PAIN RULE OUT [place]. Chief complaint is MIDSTERNAL CHEST PAIN RADIATING ACROSS FRONT OF CHEST AND ALSO ACROSS MIDDLE OF BACK WITH SHORTNESS OF BREATH AND ORTHOPNEA. Patient arrived via stretcher from ER. Monitor applied. Initial assessment completed. Vital signs taken and recorded. ADRI JOY DO notified of admission to the unit. Orders received. See assessment for past medical history, medications and allergies. Patient and/or family oriented to unit. [facility] visitation policy reviewed. Clothing/patient valuable form completed. ROSAMARIA ALBRIGHT
--- NOTE | 2019-12-17 15:11 | NUR ---
DR. ZUNIGA'S OFFICE STAFF NOTIFIED OF CONSULT RE: DYSPNEA/CHEST PAIN.
--- NOTE | 2019-12-17 15:18 | NUR ---
MEDICATED WITH PRN IV MORPHINE FOR PAIN TO RIGHT CHEST RADIATING DOWN RIGHT ARM.
--- NOTE | 2019-12-17 16:12 | NUR ---
MED REC UPDATED/CORRECTED USING MEDICATIONS LIST PROVIDED BY [facility].
--- NOTE | 2019-12-17 16:14 | NUR ---
PRN IV MORPHINE MINIMALLY EFFECTIVE, PER PATIENT.
--- NOTE | 2019-12-17 16:29 | NUR ---
DR. UNGER NOTIFIED OF CONSULT FOR CHEST PAIN. NO FURTHER ORDERS OBTAINED AT THIS TIME. PER DR. UNGER HE SAW THIS PATIENT IN THE OFFICE EARLIER.
--- NOTE | 2019-12-17 17:45 | NUR ---
ADMINISTERED IV TORADOL X 1 ORDERED FOR RIGHT SIDED CHEST PAIN.
--- NOTE | 2019-12-17 19:45 | NUR ---
PATIENT RESTING IN BED. CO CHEST PAIN THAT RADIATES DOWN THE RIGHT ARM AND TO HIS BACK. ALSO CO SHORTNESS OF BREATH. NO OTHER CONCERNS ADDRESSED AT THIS TIME. ASSESSMENT COMPLETE. RESPS EASY AND REGULAR. DRESSING INTACT TO LEFT ARM PATIENT STATES "I GO TO THE [facility] EVERY SATURDAY AND THEY SAID NOT TO TOUCH THIS DRESSING ON HERE UNTIL I COME BACK ON SATURDAY." WOUND NOT VISUALIZED FOR THIS REASON. CALL LIGHT IN REACH.
--- NOTE | 2019-12-17 19:50 | NUR ---
24 HR chart check completed.
--- NOTE | 2019-12-17 20:20 | NUR ---
NOTIFIED OF CTA OF CHEST RESULTS AND THAT PATIENT WOULD LIKE SOMETHING FOR DIARRHEA.
--- NOTE | 2019-12-17 21:11 | NUR ---
IMMODIUM X1 GIVEN FOR CO DIARRHEA. WILL ASSESS EFFECTIVENESS.
--- NOTE | 2019-12-17 22:11 | NUR ---
PATIENT STATES HE THINKS THE IMMODIUM HELPED.
--- NOTE | 2019-12-17 22:29 | NUR ---
MORPHINE GIVEN PER PATIENT REQUEST FOR CHEST PAIN RATED A 9/10. ENCOURAGED NORCO AND PATIENT STATES "THAT MAKES ME VERY SICK. IT WILL MAKE ME VOMIT AND SWEAT" PRN MORPHINE ADMINISTERED ORDERED. WILL ASSESS EFFECTIVENESS. CALL LIGHT IN REACH.
--- NOTE | 2019-12-17 23:29 | NUR ---
MORPHINE EFFECTIVE PER PATIENT.
--- NOTE | 2019-12-18 12:21 | NUR ---
Hospital Coordinator in to talk to patient. Patient states lives at HOME with ALONE. There are NO steps in the home. Physician: JALEESA [facility]acy: [facility] Home health services: NONE Patient's level of ADLs: INDEPENDENT Patient has working utilities: YES DME: NONE Follow-up physician's appointment after d/c: WILL BE MADE BY HOSPITALIST NURSE DIRECTOR ON DISCHARGE Does patient want to access PORTAL?: NO Discharge plan PT LIVES AT HOME ALONE AND STATES HE IS INDEPENDENT IN HIS CARE. DECLINES HE WILL HAVE NEEDS AT HOME ON DISCHARGE. PLAN IS TO RETURN HOME PER PT. WILL CONTINUE TO FOLLOW. STATES HE WILL HAVE A RIDE HOME OR WILL GET A CAB. HEATHER SCHAEFFER
--- NOTE | 2019-12-18 16:21 | NUR ---
C/O ARM AND SHOULDER PAIN. MEDICATED PER PRN ORDER.
--- NOTE | 2019-12-18 17:00 | NUR ---
NO FURTHER C/O PAIN VOICED.
--- NOTE | 2019-12-18 19:13 | NUR ---
24 HR chart check completed.
--- NOTE | 2019-12-18 21:20 | NUR ---
PATIENT WANTED XANAX FOR ANXIETY TO HELP HIM SLEEP. CALLED DR. BRAGG AND NOTIFIED HIM THAT PATIENT WANTED HIS XANAX HE TAKES AT HOME. ORDERS TO BE RECEIVED.
--- NOTE | 2019-12-18 21:44 | NUR ---
XANAX GIVEN PER ORDER FOR ANXIETY PER PT. REQUEST. SEE MAR.
--- NOTE | 2019-12-18 21:45 | NUR ---
ADY GIVEN PER ORDER FOR PAIN ACROSS CHEST RATED "6" SEE MAR.
--- NOTE | 2019-12-18 22:40 | NUR ---
XANAX EFFECTIVE FOR HELPING PATIENT RELAX AND NORCO BECOMING EFFECTIVE FOR PAIN PER PATIENT.
[2019-12-19] VITALS: BP 97/54
--- NOTE | 2019-12-19 08:00 | NUR ---
Neurological: awake,alert,oriented Respiratory: easy, regular,no distress Breath sounds: clear Cough: none Cardiovascular: pain Gastrointestinal: no problem Genito/Urinary: no problem Musculoskeketal: warm and dry, color pink RITESH HAM
--- NOTE | 2019-12-19 09:05 | NUR ---
C/O RT ARM AND SHOULDER PAIN. REPOSITIONED WITHOUT EFFECT. MEDICATED PER PRN ORDER. WILL CONTINUE TO MONITOR.
--- NOTE | 2019-12-19 10:10 | NUR ---
NO FURTHER C/O VOICED.
--- NOTE | 2019-12-19 12:27 | NUR ---
DISCHARGE INSTRUCTION GIVEN. VERBALIZED UNDERSTANDING. IV REMOVED. CATH. INTACT. TELE MONITOR REMOVED. IN STABLE CONDITION.
--- NOTE | 2019-12-19 13:00 | NUR ---
Discharge instructions reviewed with patient/family. Patient receptive and verbalizes understanding. Follow-up care arranged. Written instructions given to patient/family. LEFT FLOOR VIA W/C WITH ONE ASSIST. TOOK ALL BELONG WITH HIM. RITESH HAM
--- NOTE | 2019-12-19 13:57 | NUR ---
SCRIPTS FOR NEW MED WERE NOT TAKEN WITH PT. CALLED AND NOTIFIED HIM. HE WILL BE COMING TO PICK THEM UP.
== END 2019-12-19 13:00 | disposition home or self-care (01) ==
LOC: ED 10:18 → EDHOLD 12:32 → 5E 12:32
PROVIDERS: ADMIT Internal Medicine; ATTEND Internal Medicine
DX: D64.9 Anemia, unspecified (principal); R74.8 Abnormal levels of other serum enzymes; R79.82 Elevated C-reactive protein (CRP); R79.89 Other specified abnormal findings of blood chemistry; I11.0 Hypertensive heart disease with heart failure; I50.9 Heart failure, unspecified; K21.9 Gastro-esophageal reflux disease without esophagitis; F41.8 Other specified anxiety disorders; I48.91 Unspecified atrial fibrillation; J44.9 Chronic obstructive pulmonary disease, unspecified

== ENCOUNTER 2019-12-25 15:53 | Emergency (ER) | payer MEDICAID ==
[~2019-12-25] VITALS: Ht 170.1 cm; Wt 85.0 kg
[~2019-12-25 15:53] MED LIST changes: +ACETAMINOPHEN325 M2 PO; +ALPRAZOLAM0.5 M3 PO; +ASPIRIN CHEWABL81 MG PO; +ATORVASTATIN CA40 M1 PO; +CALCIUM 500 MG1 EACH PO; +CALCIUM PO; +FAMOTIDINE20 M1 PO; +FLOVENT HFA12 GM INH; +FUROSEMIDE20 M1 PO; +FUROSEMIDE40 MG PO; +LISINOPRIL10 M1 PO; +MAGNESIUM400 M1 PO; +MELATONIN10 M6 PO; +MELATONIN3 MG PO; +MELOXICAM7.5 MG PO; +METOPROLOL SUCC50 M1 PO; +MEXILETINE HCL150 MG PO; +Magnesium Oxid400 MG PO; +OXYCODONE5 M1 PO; +PAROXETINE40 MG PO; +POTASSIUM CHLO20 ME4 PO; +SENNA PO; +VITAMIN D PO
[2019-12-25 15:55] VITALS: BP 117/84
[2019-12-25 16:38] LABS: HEMATOCRIT 41.2 % (42.0-52.0); MEAN CELL VOLUME 86.6 fl (80.0-94.0); MEAN CORPUSCULAR HGB 26.3 pg (27.0-31.0); MEAN CORPUSCULAR HGB CONC 30.3 g/dl (33.0-37.0); MEAN PLATELET VOLUME 10.1 fl (9.6-12.3); PLATELET COUNT AUTOMATED 292 10*3/uL (130-400); RED BLOOD COUNT 4.76 10*6/uL (4.50-5.90); RED CELL DISTRI WIDTH 15.6 % (0-14.5); WHITE BLOOD COUNT 12.6 10*3/uL (4.8-10.8)
[2019-12-25 17:05] LABS: ATYPICAL LYMPHS 1 % (0-0); PLATELET SUFFICIENCY NORMAL (NORMAL); TOTAL CELLS COUNTED 100 #CELLS
[2019-12-25 17:12] LABS: ALBUMIN 3.6 gm/dl (3.1-4.5); ALKALINE PHOSPHATASE 107 U/L (45-117); BUN 22 mg/dl (7-24); CHLORIDE 103 mmol/L (98-107); POTASSIUM 4.1 mmol/L (3.5-5.1); SGOT/AST 40 IU/L (3-35); SGPT/ALT 82 U/L (12-78); SODIUM 141 mmol/L (136-145); TOTAL PROTEIN 6.7 gm/dL (6.4-8.2)
[2019-12-25] MEDS ORDERED: VALTREX500 MG PO (18:34)
[2019-12-25] MEDS ORDERED: NORCO 10-325 T1 EACH PO (18:37)
== END 2019-12-25 18:50 | disposition home or self-care (01) ==
LOC: ED 15:53
PROVIDERS: Emergency Medicine
DX: R07.89 Other chest pain (principal); B02.9 Zoster without complications; Z79.899 Other long term (current) drug therapy

== ENCOUNTER 2019-12-30 10:20 | Inpatient (IN) | payer MEDICAID ==
[~2019-12-30] VITALS: Ht 172.7 cm; Wt 90.7 kg
[~2019-12-30 10:20] MED LIST changes: +NORCO 10-325 T1 EACH PO; +VALTREX500 MG PO
[2019-12-30 10:27] VITALS: BP 130/69
[2019-12-30 10:55] LABS: BASO % 0.2 % (0.0-1.0); EOS # 0.1 10*3/uL (0.0-0.4); HEMATOCRIT 37.5 % (42.0-52.0); LYMPH # 1.7 10*3/uL (1.3-4.4); LYMPH % 16.4 % (27.0-41.0); MEAN CELL VOLUME 87.6 fl (80.0-94.0); MEAN CORPUSCULAR HGB 26.4 pg (27.0-31.0); MEAN CORPUSCULAR HGB CONC 30.1 g/dl (33.0-37.0); MEAN PLATELET VOLUME 10.8 fl (9.6-12.3); MONO # 0.8 10*3/uL (0.1-1.0); MONO % 7.3 % (3.0-9.0); NEUT # 7.6 10*3/uL (2.3-7.9); NEUT % 74.3 % (47.0-73.0); PLATELET COUNT AUTOMATED 205 10*3/uL (130-400); RED BLOOD COUNT 4.28 10*6/uL (4.50-5.90); RED CELL DISTRI WIDTH 16.7 % (0-14.5); WHITE BLOOD COUNT 10.2 10*3/uL (4.8-10.8)
[2019-12-30 11:07] LABS: ACT PARTIAL THROMBO TIME 26.2 SECONDS (20.0-32.1); INTERNATIONAL NORM RATIO 1.1 (2.0-3.5)
[2019-12-30 11:11] LABS: ALBUMIN 3.4 gm/dl (3.1-4.5); ALKALINE PHOSPHATASE 134 U/L (45-117); BUN 24 mg/dl (7-24); CHLORIDE 111 mmol/L (98-107); CREATININE 0.85 mg/dL (0.70-1.30); POTASSIUM 3.9 mmol/L (3.5-5.1); SGOT/AST 18 IU/L (3-35); SGPT/ALT 41 U/L (12-78); SODIUM 141 mmol/L (136-145); TOTAL PROTEIN 6.7 gm/dL (6.4-8.2)
[2019-12-30 11:12] LABS: TROPONIN I < 0.015 ng/ml (<0.045)
[2019-12-30 13:51] VITALS: BP 131/82
[2019-12-30 14:26] VITALS: BP 126/74
[2019-12-30 14:50] VITALS: BP 124/77
[2019-12-30 15:13] VITALS: BP 124/77
[2019-12-30] MEDS ORDERED: OMEPRAZOLE40 MG PO (16:29)
[2019-12-30] MEDS ORDERED: GABAPENTIN800 MG PO (16:46)
[2019-12-30 20:00] VITALS: BP 90/72
[2019-12-31] VITALS: BP 101/61
[2019-12-31 06:18] LABS: BASO % 0.3 % (0.0-1.0); EOS # 0.1 10*3/uL (0.0-0.4); EOS % 1.6 % (1.0-4.0); HEMATOCRIT 35.9 % (42.0-52.0); LYMPH # 2.8 10*3/uL (1.3-4.4); LYMPH % 31.3 % (27.0-41.0); MEAN CELL VOLUME 87.6 fl (80.0-94.0); MEAN CORPUSCULAR HGB 26.1 pg (27.0-31.0); MEAN CORPUSCULAR HGB CONC 29.8 g/dl (33.0-37.0); MONO # 1.1 10*3/uL (0.1-1.0); MONO % 12.2 % (3.0-9.0); NEUT # 4.8 10*3/uL (2.3-7.9); NEUT % 53.9 % (47.0-73.0); PLATELET COUNT AUTOMATED 192 10*3/uL (130-400); RED CELL DISTRI WIDTH 17.2 % (0-14.5); WHITE BLOOD COUNT 8.9 10*3/uL (4.8-10.8)
[2019-12-31 06:48] LABS: ALBUMIN 3.1 gm/dl (3.1-4.5); ALKALINE PHOSPHATASE 119 U/L (45-117); BUN 26 mg/dl (7-24); CHLORIDE 107 mmol/L (98-107); CREATININE 0.84 mg/dL (0.70-1.30); POTASSIUM 3.7 mmol/L (3.5-5.1); SGOT/AST 16 IU/L (3-35); SGPT/ALT 32 U/L (12-78); SODIUM 140 mmol/L (136-145); TOTAL PROTEIN 6.4 gm/dL (6.4-8.2)
[2019-12-31 08:00] VITALS: BP 125/52
[2019-12-31 12:00] VITALS: BP 125/58
[2019-12-31 16:00] VITALS: BP 130/64
[2019-12-31 20:00] VITALS: BP 119/71
[2020-01-01] VITALS: BP 139/64
[2020-01-01 06:08] LABS: ALBUMIN 3.2 gm/dl (3.1-4.5); BUN 21 mg/dl (7-24); CHLORIDE 107 mmol/L (98-107); CREATININE 0.91 mg/dL (0.70-1.30); SODIUM 138 mmol/L (136-145)
[2020-01-01 08:00] VITALS: BP 124/62
[2020-01-01 12:00] VITALS: BP 132/60; BP 136/72
[2020-01-01 16:00] VITALS: BP 129/72
[2020-01-01 20:00] VITALS: BP 118/71
[2020-01-02] VITALS: BP 122/63
[2020-01-02 07:15] LABS: BUN 22 mg/dl (7-24); CHLORIDE 103 mmol/L (98-107); CREATININE 1.11 mg/dL (0.70-1.30); POTASSIUM 4.7 mmol/L (3.5-5.1); SODIUM 137 mmol/L (136-145)
[2020-01-02 08:00] VITALS: BP 129/73
[2020-01-02] MEDS ORDERED: SHINGRIX ADJUV0.5 ML IM (10:38)
[2020-01-02] MEDS ORDERED: NORCO 10-325 T1 EACH PO (10:38)
[2020-01-02] MEDS ORDERED: IMDUR SA30 MG PO (10:38)
[2020-01-02] MEDS ORDERED: MEXILETINE HCL150 MG PO (11:10)
== END 2020-01-02 11:57 | disposition home or self-care (01) | DRG 194 ==
LOC: ED 10:20 → EDHOLD 12:06 → 4E 12:06
PROVIDERS: Emergency Medicine; Internal Medicine; Registered Nurse; ADMIT Internal Medicine; ATTEND Internal Medicine
PROC: 0HBRXZZ Excision of Toe Nail, External Approach (ICD-10-PCS; principal; 2020-01-01)
PROC: 0HBRXZZ Excision of Toe Nail, External Approach (ICD-10-PCS; 2020-01-01)
PROC: 0HBRXZZ Excision of Toe Nail, External Approach (ICD-10-PCS; 2020-01-01)
PROC: 0HBRXZZ Excision of Toe Nail, External Approach (ICD-10-PCS; 2020-01-01)
PROC: 0HBRXZZ Excision of Toe Nail, External Approach (ICD-10-PCS; 2020-01-01)
PROC: 0HBRXZZ Excision of Toe Nail, External Approach (ICD-10-PCS; 2020-01-01)
PROC: 0HBRXZZ Excision of Toe Nail, External Approach (ICD-10-PCS; 2020-01-01)
PROC: 0HBRXZZ Excision of Toe Nail, External Approach (ICD-10-PCS; 2020-01-01)
PROC: 0HBRXZZ Excision of Toe Nail, External Approach (ICD-10-PCS; 2020-01-01)
PROC: 0HBRXZZ Excision of Toe Nail, External Approach (ICD-10-PCS; 2020-01-01)
DX: I11.0 Hypertensive heart disease with heart failure (principal); I50.33 Acute on chronic diastolic (congestive) heart failure; E44.0 Moderate protein-calorie malnutrition; E83.41 Hypermagnesemia; K21.9 Gastro-esophageal reflux disease without esophagitis; B02.9 Zoster without complications; Z68.30 Body mass index [BMI] 30.0-30.9, adult; I38 Endocarditis, valve unspecified; H54.3 Unqualified visual loss, both eyes; M79.2 Neuralgia and neuritis, unspecified; D64.9 Anemia, unspecified; R07.81 Pleurodynia; R73.9 Hyperglycemia, unspecified; B35.1 Tinea unguium; J44.1 Chronic obstructive pulmonary disease with (acute) exacerbation; I25.10 Atherosclerotic heart disease of native coronary artery without angina pectoris; M19.90 Unspecified osteoarthritis, unspecified site; Z82.49 Family history of ischemic heart disease and other diseases of the circulatory system; Z79.1 Long term (current) use of non-steroidal anti-inflammatories (NSAID); Z79.899 Other long term (current) drug therapy; Z95.1 Presence of aortocoronary bypass graft

== ENCOUNTER 2020-01-03 17:41 | Emergency (ER) | payer MEDICAID ==
[~2020-01-03 17:41] MED LIST changes: +GABAPENTIN800 MG PO; +IMDUR SA30 MG PO; +SHINGRIX ADJUV0.5 ML IM
[2020-01-03 17:43] VITALS: BP 126/45
[2020-01-03 18:03] LABS: BASO # 0.1 10*3/uL (0.0-0.1); BASO % 0.7 % (0.0-1.0); EOS # 0.2 10*3/uL (0.0-0.4); EOS % 2.1 % (1.0-4.0); HEMATOCRIT 37.7 % (42.0-52.0); LYMPH # 2.5 10*3/uL (1.3-4.4); LYMPH % 33.8 % (27.0-41.0); MEAN CELL VOLUME 86.9 fl (80.0-94.0); MEAN CORPUSCULAR HGB 26.3 pg (27.0-31.0); MEAN CORPUSCULAR HGB CONC 30.2 g/dl (33.0-37.0); MEAN PLATELET VOLUME 10.7 fl (9.6-12.3); MONO # 0.8 10*3/uL (0.1-1.0); MONO % 11.2 % (3.0-9.0); NEUT # 3.9 10*3/uL (2.3-7.9); NEUT % 51.9 % (47.0-73.0); PLATELET COUNT AUTOMATED 225 10*3/uL (130-400); RED BLOOD COUNT 4.34 10*6/uL (4.50-5.90); RED CELL DISTRI WIDTH 17.7 % (0-14.5); WHITE BLOOD COUNT 7.5 10*3/uL (4.8-10.8)
[2020-01-03 18:14] LABS: ACT PARTIAL THROMBO TIME 27.7 SECONDS (20.0-32.1); INTERNATIONAL NORM RATIO 1.2 (2.0-3.5)
[2020-01-03 18:20] LABS: ALBUMIN 3.9 gm/dl (3.1-4.5); ALKALINE PHOSPHATASE 135 U/L (45-117); BUN 22 mg/dl (7-24); CHLORIDE 107 mmol/L (98-107); CPK 37 U/L (39-308); CREATININE 1.18 mg/dL (0.70-1.30); POTASSIUM 4.3 mmol/L (3.5-5.1); SGOT/AST 18 IU/L (3-35); SGPT/ALT 27 U/L (12-78); SODIUM 138 mmol/L (136-145); TOTAL PROTEIN 7.4 gm/dL (6.4-8.2)
[2020-01-03 18:21] LABS: TROPONIN I < 0.015 ng/ml (<0.045)
== END 2020-01-03 20:06 | disposition home or self-care (01) ==
LOC: ED 17:41
PROVIDERS: Emergency Medicine
DX: R60.0 Localized edema (principal); G62.9 Polyneuropathy, unspecified; I25.10 Atherosclerotic heart disease of native coronary artery without angina pectoris; I48.91 Unspecified atrial fibrillation; J44.9 Chronic obstructive pulmonary disease, unspecified; K21.9 Gastro-esophageal reflux disease without esophagitis; I50.9 Heart failure, unspecified; I11.0 Hypertensive heart disease with heart failure; M19.90 Unspecified osteoarthritis, unspecified site; Z79.899 Other long term (current) drug therapy; Z79.82 Long term (current) use of aspirin

== ENCOUNTER 2020-01-14 19:40 | Emergency (ER) | payer MEDICAID ==
[2020-01-14 20:14] LABS: BASO # 0.1 10*3/uL (0.0-0.1); BASO % 0.6 % (0.0-1.0); EOS # 0.2 10*3/uL (0.0-0.4); EOS % 2.9 % (1.0-4.0); HEMATOCRIT 39.8 % (42.0-52.0); LYMPH # 3.1 10*3/uL (1.3-4.4); MEAN CELL VOLUME 83.8 fl (80.0-94.0); MEAN CORPUSCULAR HGB 25.9 pg (27.0-31.0); MEAN CORPUSCULAR HGB CONC 30.9 g/dl (33.0-37.0); MEAN PLATELET VOLUME 9.7 fl (9.6-12.3); MONO # 1.2 10*3/uL (0.1-1.0); MONO % 14.7 % (3.0-9.0); NEUT # 3.5 10*3/uL (2.3-7.9); NEUT % 43.6 % (47.0-73.0); PLATELET COUNT AUTOMATED 293 10*3/uL (130-400); RED BLOOD COUNT 4.75 10*6/uL (4.50-5.90); RED CELL DISTRI WIDTH 17.4 % (0-14.5); WHITE BLOOD COUNT 8.1 10*3/uL (4.8-10.8)
[2020-01-14 20:31] LABS: ALBUMIN 3.7 gm/dl (3.1-4.5); ALKALINE PHOSPHATASE 117 U/L (45-117); BUN 24 mg/dl (7-24); CHLORIDE 107 mmol/L (98-107); POTASSIUM 3.6 mmol/L (3.5-5.1); SGOT/AST 15 IU/L (3-35); SGPT/ALT 27 U/L (12-78); SODIUM 139 mmol/L (136-145)
[2020-01-14 20:36] LABS: TROPONIN I < 0.015 ng/ml (<0.045)
[2020-01-14 22:29] VITALS: BP 137/79
== END 2020-01-14 23:41 | disposition short-term general hospital (02) ==
LOC: ED 19:40
PROVIDERS: Internal Medicine
DX: I47.2 Ventricular tachycardia (principal); R91.8 Other nonspecific abnormal finding of lung field; Z79.899 Other long term (current) drug therapy; Z79.82 Long term (current) use of aspirin

== ENCOUNTER 2020-01-24 16:35 | Emergency (ER) | payer MEDICAID ==
[2020-01-24 16:36] VITALS: BP 130/111
[2020-01-24 16:54] LABS: BASO # 0.1 10*3/uL (0.0-0.1); BASO % 0.9 % (0.0-1.0); EOS # 0.1 10*3/uL (0.0-0.4); EOS % 1.8 % (1.0-4.0); HEMATOCRIT 40.3 % (42.0-52.0); LYMPH # 2.5 10*3/uL (1.3-4.4); LYMPH % 31.8 % (27.0-41.0); MEAN CELL VOLUME 83.8 fl (80.0-94.0); MEAN CORPUSCULAR HGB 25.2 pg (27.0-31.0); MEAN PLATELET VOLUME 10.3 fl (9.6-12.3); MONO # 1.1 10*3/uL (0.1-1.0); MONO % 13.7 % (3.0-9.0); NEUT % 51.7 % (47.0-73.0); PLATELET COUNT AUTOMATED 268 10*3/uL (130-400); RED BLOOD COUNT 4.81 10*6/uL (4.50-5.90); RED CELL DISTRI WIDTH 17.8 % (0-14.5); WHITE BLOOD COUNT 7.8 10*3/uL (4.8-10.8)
[2020-01-24 17:06] LABS: ACT PARTIAL THROMBO TIME 27.9 SECONDS (20.0-32.1); INTERNATIONAL NORM RATIO 1.1 (2.0-3.5)
[2020-01-24 17:11] LABS: ALBUMIN 3.6 gm/dl (3.1-4.5); ALKALINE PHOSPHATASE 126 U/L (45-117); BUN 13 mg/dl (7-24); CHLORIDE 106 mmol/L (98-107); CREATININE 1.04 mg/dL (0.70-1.30); POTASSIUM 3.8 mmol/L (3.5-5.1); SGOT/AST 17 IU/L (3-35); SGPT/ALT 21 U/L (12-78); SODIUM 139 mmol/L (136-145); TOTAL PROTEIN 7.2 gm/dL (6.4-8.2)
[2020-01-24 17:13] LABS: TROPONIN I < 0.015 ng/ml (<0.045)
== END 2020-01-24 19:50 | disposition short-term general hospital (02) ==
LOC: ED 16:35
PROVIDERS: Emergency Medicine
DX: I47.2 Ventricular tachycardia (principal); I25.10 Atherosclerotic heart disease of native coronary artery without angina pectoris; I48.91 Unspecified atrial fibrillation; J44.9 Chronic obstructive pulmonary disease, unspecified; K21.9 Gastro-esophageal reflux disease without esophagitis; E66.9 Obesity, unspecified; M19.90 Unspecified osteoarthritis, unspecified site; I50.9 Heart failure, unspecified; I11.0 Hypertensive heart disease with heart failure; Z79.899 Other long term (current) drug therapy; Z79.82 Long term (current) use of aspirin; Z87.891 Personal history of nicotine dependence

== ENCOUNTER 2020-02-02 16:49 | Observation (INO) | payer MEDICAID ==
[~2020-02-02] VITALS: Ht 170.1 cm; Wt 91.7 kg
[2020-02-02 16:49] VITALS: BP 105/46
[2020-02-02 17:26] LABS: BASO # 0.1 10*3/uL (0.0-0.1); BASO % 0.7 % (0.0-1.0); EOS # 0.1 10*3/uL (0.0-0.4); EOS % 0.9 % (1.0-4.0); HEMATOCRIT 34.7 % (42.0-52.0); LYMPH # 2.1 10*3/uL (1.3-4.4); LYMPH % 25.8 % (27.0-41.0); MEAN CELL VOLUME 83.2 fl (80.0-94.0); MEAN CORPUSCULAR HGB 25.2 pg (27.0-31.0); MEAN CORPUSCULAR HGB CONC 30.3 g/dl (33.0-37.0); MEAN PLATELET VOLUME 10.8 fl (9.6-12.3); MONO % 12.5 % (3.0-9.0); NEUT # 4.8 10*3/uL (2.3-7.9); PLATELET COUNT AUTOMATED 263 10*3/uL (130-400); RED BLOOD COUNT 4.17 10*6/uL (4.50-5.90); RED CELL DISTRI WIDTH 19.2 % (0-14.5)
[2020-02-02 17:49] LABS: ALBUMIN 3.5 gm/dl (3.1-4.5); ALKALINE PHOSPHATASE 124 U/L (45-117); BUN 22 mg/dl (7-24); CHLORIDE 101 mmol/L (98-107); CREATININE 1.39 mg/dL (0.70-1.30); POTASSIUM 3.7 mmol/L (3.5-5.1); SGOT/AST 21 IU/L (3-35); SGPT/ALT 16 U/L (12-78); SODIUM 136 mmol/L (136-145); TOTAL PROTEIN 6.9 gm/dL (6.4-8.2)
[2020-02-02 17:51] LABS: ACT PARTIAL THROMBO TIME 26.5 SECONDS (20.0-32.1); INTERNATIONAL NORM RATIO 1.3 (2.0-3.5)
[2020-02-02 17:54] LABS: TROPONIN I 0.167 ng/ml (<0.045)
[2020-02-02 17:55] VITALS: BP 117/55
[2020-02-02 20:00] VITALS: BP 112/60
--- NOTE | 2020-02-02 21:38 | NUR ---
PATIENT IS STABLE AND READY FOR TRANSPORT TO INPATIENT ROOM.
[2020-02-02 22:10] VITALS: BP 140/73
--- NOTE | 2020-02-02 22:10 | NUR ---
A 59, admitted to , under the services of CHRISTI Burdick DO with a diagnosis of CHEST PAIN. Chief complaint is CHEST PAIN. Patient arrived via stretcher from ER. Monitor applied. Initial assessment completed. Vital signs taken and recorded. CHRISTI BURDICK DO notified of admission to the unit. Orders received. See assessment for past medical history, medications and allergies. Patient and/or family oriented to unit. [facility]. Clothing/patient valuable form completed. MARIA ELENA STEELE
--- NOTE | 2020-02-02 22:49 | NUR ---
$210 TAKEN TO SUPERVISORS OFFICE TO BE LOCKED UP IN LOCKBOX WITH CIRCLE CUTTING SAW OPERATOR CARLOS
--- NOTE | 2020-02-02 23:20 | NUR ---
DR CONDE AWARE OF TROPONIN. STATES NOT TO CALL DR UTE BROWN, CALL IN THE MORNING.
--- NOTE | 2020-02-03 00:14 | NUR ---
PATIENT DOES NOT KNOW HOME MEDICATIONS TAKEN. HE STATES HE DOES NOT KNOW THEM EVEN TO HEAR THEM.
--- NOTE | 2020-02-03 03:24 | NUR ---
PATIENT C/O LEFT SIDED CHEST HEAVINESS RATED 9/10. VITALS STABLE AND IN DI SCREEN. STAT EKG ORDERED
--- NOTE | 2020-02-03 03:26 | NUR ---
PT MEDICATED WITH PO NORCO FOR C/O PAIN IN CHEST RATED 9/10. PT S/P SURGERY WITH INCISION TO L CHEST/SIDE. STAT EKG ORDERED.
[2020-02-03 03:27] VITALS: BP 128/71
--- NOTE | 2020-02-03 03:47 | NUR ---
DR CONDE AWARE OF PATIENT C/O CHEST PAIN
--- NOTE | 2020-02-03 04:25 | NUR ---
NORCO EFFECTIVE "A LITTLE BIT" PER PATIENT. REQUESTING SOMETHING ELSE
--- NOTE | 2020-02-03 04:30 | NUR ---
MEDICATED WITH PRN MORPHINE FOR C/O CHEST PAIN RATED 8/10 ON A 0/10 PAIN SCALE. WILL MONITOR
--- NOTE | 2020-02-03 05:26 | NUR ---
MEDICATION EFFECTIVE PER PATIENT
--- NOTE | 2020-02-03 06:01 | NUR ---
DR UNGER AWARE OF CONSULT. STATES TO START PATIENT'S HOME MEXETIL NOW 150MG Q12 HOURS TO PREVENT VTACH. MEDICATION ORDERED AND PHARMACY MADE AWARE TO START MEDICATION NOW
--- NOTE | 2020-02-03 06:16 | NUR ---
MEXETIL UNAVAILABLE IN [facility]. FURNISHINGS CONSERVATOR UNABLE TO GET IT AT THIS TIME. WILL HAVE TO WAIT UNTIL PHARMACY OPENS AT 0700
[2020-02-03 07:43] LABS: BASO # 0.1 10*3/uL (0.0-0.1); BASO % 1.2 % (0.0-1.0); EOS # 0.1 10*3/uL (0.0-0.4); EOS % 1.5 % (1.0-4.0); HEMATOCRIT 35.5 % (42.0-52.0); LYMPH # 1.7 10*3/uL (1.3-4.4); LYMPH % 28.7 % (27.0-41.0); MEAN CELL VOLUME 83.1 fl (80.0-94.0); MEAN CORPUSCULAR HGB 25.1 pg (27.0-31.0); MEAN CORPUSCULAR HGB CONC 30.1 g/dl (33.0-37.0); MEAN PLATELET VOLUME 10.1 fl (9.6-12.3); MONO # 0.9 10*3/uL (0.1-1.0); MONO % 14.4 % (3.0-9.0); NEUT # 3.2 10*3/uL (2.3-7.9); NEUT % 53.9 % (47.0-73.0); PLATELET COUNT AUTOMATED 252 10*3/uL (130-400); RED BLOOD COUNT 4.27 10*6/uL (4.50-5.90); RED CELL DISTRI WIDTH 19.2 % (0-14.5); WHITE BLOOD COUNT 5.9 10*3/uL (4.8-10.8)
--- NOTE | 2020-02-03 07:52 | NUR ---
PT MEDICATED WITH PRN ZOFRAN FOR C/O NAUSEA.
--- NOTE | 2020-02-03 07:52 | NUR ---
PHYSICAL THERAPY Screen and PT eval received will follow thank you Yas Vallecillo PT
[2020-02-03 08:00] VITALS: BP 131/64
[2020-02-03 08:06] LABS: VITAMIN D, 25-HYDROXY 31.9 ng/mL (30-100)
[2020-02-03] MEDS ORDERED: PACERONE200 MG PO (08:31)
--- NOTE | 2020-02-03 09:27 | NUR ---
PHYSICAL THERAPY Physical Therapy evaluation completed on with full evaluation to follow. Patient admitted and evaluated under observation status. Recommend physical therapy per plan of care and SNF upon discharge. Thank you for this referral. Mayelin Payan,PT,DPT
--- NOTE | 2020-02-03 09:30 | NUR ---
Occupational Therapy evaluation completed on four with full evaluation to follow. Patient s/p a cardiac surgery in January [address] Rose to use standard sternal precautions at this time. Nursing educated on sternal precaution and were reviewed with the patient, whom had poor carryover during ADLs, transfers, and mobility. Recommend occupational therapy per plan of care and SNF upon discharge. Thank you for this referral. Wendy Ayala, OTR/L
--- NOTE | 2020-02-03 10:32 | NUR ---
Patient requesting a [facility] to [facility]. Waiting on PT/OT evals and covid results. RS is reviewing
[2020-02-03 11:28] LABS: BUN 23 mg/dl (7-24); CHLORIDE 106 mmol/L (98-107); CREATININE 1.41 mg/dL (0.70-1.30); POTASSIUM 3.6 mmol/L (3.5-5.1); SODIUM 143 mmol/L (136-145)
[2020-02-03 11:31] LABS: CHOLESTEROL 106 mg/dL (<200); HDL CHOLESTEROL 36 mg/dl (40-60); LDL CHOLESTEROL 50 mg/dL (9-159); TRIGLYCERIDES 98 mg/dl (<150); VLDL CHOLESTEROL 20 mg/dL (6-40)
--- NOTE | 2020-02-03 11:46 | NUR ---
OT NOTE Nursing screen received. Patient was evaluated this AM and is currently on OT caseload. Thank you. Wendy Ayala, OTR/L
[2020-02-03 12:00] VITALS: BP 126/60
--- NOTE | 2020-02-03 13:10 | NUR ---
PT/OT evals completed and faxed to [facility]. hospital exemption complete, level of care completed, signed by Dr. Rose and faxed to [facility] for approval.
[2020-02-03 16:00] VITALS: BP 129/61
[2020-02-03] MEDS ORDERED: SPIRIVA RESPIMAT4 G1 INH (17:34)
[2020-02-03] MEDS ORDERED: LISINOPRIL5 MG PO (17:37)
[2020-02-03] MEDS ORDERED: MULTIVITAMINS1 EAC5 PO (17:38)
--- NOTE | 2020-02-03 19:14 | NUR ---
DR CONDE AWARE OF PATIENT HAVING A 5 BEAT RUN OF VTACH
--- NOTE | 2020-02-03 19:18 | NUR ---
DR SCHULER RADIOLOGIST FOR DR UNGER. ATTEMPTED TO CALL HIM WITH NO ANSWER. POWER CUTTING MACHINE OPERATOR SENT PAGE.
--- NOTE | 2020-02-03 19:19 | NUR ---
PATIENT SITTING ON SIDE OF BED AND DENIES ANY CHEST PAIN OR PRESSURE AT THIS TIME.
--- NOTE | 2020-02-03 19:23 | NUR ---
DR CONDE AWARE THAT DR SCHULER MACHINE WELDER FOR DR UNGER AND DID NOT ANSWER PHONE CALL REGARDING RUN OF VTACH. STATES TO GIVE 2200 DOSE OF MEXITIL NOW.
--- NOTE | 2020-02-03 19:40 | NUR ---
DR CONDE AWARE OF PATIENT REQUESTING HIS NEURONTIN. STATES HE WILL TAKE A LOOK
--- NOTE | 2020-02-03 19:53 | NUR ---
DR SCHULER CALLED BACK. MADE AWARE OF PATIENT'S 5 BEAT RUN OF VTACH. STATES TO CHECK POTASSIUM, MAG AND CALCIUM LEVELS
[2020-02-03 20:00] VITALS: BP 125/83
[2020-02-03 21:17] LABS: POTASSIUM 3.8 mmol/L (3.5-5.1)
[2020-02-04] VITALS: BP 142/73
[2020-02-04 06:33] LABS: BASO # 0.1 10*3/uL (0.0-0.1); BASO % 1.1 % (0.0-1.0); EOS # 0.1 10*3/uL (0.0-0.4); EOS % 1.8 % (1.0-4.0); HEMATOCRIT 34.2 % (42.0-52.0); LYMPH # 1.6 10*3/uL (1.3-4.4); MEAN CORPUSCULAR HGB 24.9 pg (27.0-31.0); MEAN CORPUSCULAR HGB CONC 30.4 g/dl (33.0-37.0); MEAN PLATELET VOLUME 9.8 fl (9.6-12.3); MONO # 0.9 10*3/uL (0.1-1.0); MONO % 15.6 % (3.0-9.0); NEUT # 2.9 10*3/uL (2.3-7.9); NEUT % 52.3 % (47.0-73.0); PLATELET COUNT AUTOMATED 259 10*3/uL (130-400); RED BLOOD COUNT 4.17 10*6/uL (4.50-5.90); RED CELL DISTRI WIDTH 18.8 % (0-14.5); WHITE BLOOD COUNT 5.6 10*3/uL (4.8-10.8)
[2020-02-04 07:00] LABS: BUN 20 mg/dl (7-24); CHLORIDE 103 mmol/L (98-107); CREATININE 1.12 mg/dL (0.70-1.30); POTASSIUM 3.4 mmol/L (3.5-5.1); SODIUM 137 mmol/L (136-145)
--- NOTE | 2020-02-04 07:57 | NUR ---
IV started right forearm with #22 protective cath after 2 attempts. Site prepped with Chloroprep. Sterile dressing applied. Patient tolerated procedure well. DESIRAE DUMONT
[2020-02-04 08:00] VITALS: BP 128/70
--- NOTE | 2020-02-04 08:50 | NUR ---
DR. BRAGG NOTIFIED OF PT'S 5 BEAT RUN OF V TACH.
--- NOTE | 2020-02-04 10:00 | NUR ---
DR. ALVAREZ NOTIFIED OF PT'S RUN OF V TACH.
--- NOTE | 2020-02-04 10:33 | NUR ---
PHYSICAL THERAPY Patient presented to therapy in supine in bed with head of bed slightly elevated and bed alarm off. Patient uses a straight cane for ambulation. Patient gives informed consent for treatment. Patient was identified by name and on wristband. Patient performed supine to sitting on EOB with SBA. Patient sat on EOB with SBA. Patient completed STS from EOB with SBA. Patient ambulated with straight cane and CGA - SBA for 40' x 1 inside room only with multiple instances of LOB that the patient corrected himself. Patient was unsteady with gait. Patient then sat on EOB and performed 5 X sit to stands IN 12 SECONDS without use of UEs. Patient transferred back to supine in bed and scooted himself up to head of bed with SBA. Patient was left in supine in bed with head of bed elevated, call light within reach and tray table near patient. Patient was 1:1 with this SITE SPECIALIST for 18 minutes total. NAT TRUJILLO SITE SPECIALIST
--- NOTE | 2020-02-04 10:35 | NUR ---
[facility] is unable to accept this patient stating his insurance will not cover a stay there. He can go to the [facility] ([facility] In to see patient to ask if he is willingt to go to [facility]. He asked for list of facilities in the area again. After going through list, he asked if he could go home, he gets therapy there. I stated the therapists are in the room now to work with you, lets see how well you do and we can go from there. Will follow up.
--- NOTE | 2020-02-04 10:45 | NUR ---
OT NOTE Pt was seen this A.M. 1:1 for 15 minute OT session. Upon arrival pt was supine in bed. Pt identified by name and and had no complaints at this time. Pt transferred supine to sit EOB with SBA. While sitting EOB pt donned B slippers with SBA. Sit to stand completed from bed level with CGA and use of straight cane for UE support. Upon inital rise pt presented with LOB that required Saeid to correct. Pt was educated on importance of slow rise and getting his bearings before starting activity. Pt verbalized understanding however presented with poor carry over. Functional mobility completed to the bathroom with CGA and use of straight cane, throughout pt presented with bouts of unsteady stance and three LOB that required min-modA to correct. Pt was very impulsive and presented with poor safety awareness requiring verbal prompts to correct. Pt transferred on/off standard commode with CGA and use of grab bar for UE support, again presenting unsteady upon rise due to being impulsive. Functional mobility completed back to the EOB. There his dynamic standing balance was challenged while weight shifting, crossing midline, and reaching over all planes and pt was able to maintain F standing balance throughout. Pt then transferred back into bed sit to supine with SBA. There he was left with call light in hand, tray table in place, and phone in reach. Continue with rec D/C plan to SNF. JUANJO Lopez
--- NOTE | 2020-02-04 10:56 | NUR ---
In to see patient again to discuss going to snf for therapy. Patient is refusing. He said he doesn't need snf rehab he gets therapy at home 3 times per week. I attempted to contact his behavior health returned case inspector Radha but she was unavailable. Contacted resident phone and notified physicians to discharge patient to home if medically stable.
--- NOTE | 2020-02-04 11:02 | NUR ---
PATIENT REFUSED DISCHARGE PHOTOS AT THIS TIME DUE TO PAIN. KIERAN SY CARING FOR PATIENT MADE AWARE.
--- NOTE | 2020-02-04 11:33 | NUR ---
Nutritional Support Services Note: Appetite is good for meals, cardiac diet as ordered with 1500cc fluid restrcition. Wounds noted to foot. Encouraged pt to increase protein and calorie intake ot promote healing. He refuses to drink a supplement. Will provide pt with a night snack. Yessi Red Rdn Ld
[2020-02-04 12:00] VITALS: BP 124/70
--- NOTE | 2020-02-04 14:15 | NUR ---
PT REFUSES TO HAVE DISCHARGE WOUND PHOTOS TAKEN.
--- NOTE | 2020-02-04 14:15 | NUR ---
Discharge instructions reviewed with patient/family. Patient receptive and verbalizes understanding. Follow-up care arranged. Written instructions given to patient/family. FAIZAN STEPHEN
--- NOTE | 2020-02-05 07:39 | NUR ---
OCCUPATIONAL THERAPY CO-SIGN I approve of the Occupational Therapy notes written above. WILIAN GOMEZ, OTR/L
== END 2020-02-04 14:15 | disposition home or self-care (01) ==
LOC: ED 16:49 → EDHOLD 18:37 → 4E 20:24
PROVIDERS: Emergency Medicine; Internal Medicine; Internal Medicine Cardiovascular Disease; Student in an Organized Health Care Education/Training Program; ADMIT Internal Medicine; ATTEND Internal Medicine
DX: R07.89 Other chest pain (principal); I11.0 Hypertensive heart disease with heart failure; I50.9 Heart failure, unspecified; R77.8 Other specified abnormalities of plasma proteins; N17.0 Acute kidney failure with tubular necrosis; E11.65 Type 2 diabetes mellitus with hyperglycemia; K21.9 Gastro-esophageal reflux disease without esophagitis; I48.91 Unspecified atrial fibrillation; J44.9 Chronic obstructive pulmonary disease, unspecified; Z20.828 Contact with and (suspected) exposure to other viral communicable diseases

== ENCOUNTER 2020-05-06 14:40 | Inpatient (IN) | payer MEDICAID ==
[~2020-05-06] VITALS: Ht 172.7 cm; Wt 93.0 kg
[~2020-05-06 14:40] MED LIST changes: +LISINOPRIL5 MG PO; +MULTIVITAMINS1 EAC5 PO; +SPIRIVA RESPIMAT4 G1 INH
[2020-05-06 14:50] VITALS: BP 166/94
[2020-05-06 15:11] LABS: BASO # 0.1 10*3/uL (0.0-0.1); BASO % 0.9 % (0.0-1.0); EOS # 0.1 10*3/uL (0.0-0.4); EOS % 2.2 % (1.0-4.0); HEMATOCRIT 35.6 % (42.0-52.0); LYMPH # 1.9 10*3/uL (1.3-4.4); LYMPH % 29.2 % (27.0-41.0); MEAN CELL VOLUME 77.7 fl (80.0-94.0); MEAN CORPUSCULAR HGB 22.7 pg (27.0-31.0); MEAN CORPUSCULAR HGB CONC 29.2 g/dl (33.0-37.0); MEAN PLATELET VOLUME 9.6 fl (9.6-12.3); MONO # 0.8 10*3/uL (0.1-1.0); MONO % 12.3 % (3.0-9.0); NEUT # 3.6 10*3/uL (2.3-7.9); NEUT % 55.2 % (47.0-73.0); PLATELET COUNT AUTOMATED 270 10*3/uL (130-400); RED BLOOD COUNT 4.58 10*6/uL (4.50-5.90); RED CELL DISTRI WIDTH 18.5 % (0-14.5); WHITE BLOOD COUNT 6.5 10*3/uL (4.8-10.8)
[2020-05-06 15:22] LABS: ACT PARTIAL THROMBO TIME 28.3 SECONDS (20.0-32.1); INTERNATIONAL NORM RATIO 1.2 (2.0-3.5)
[2020-05-06 15:29] LABS: ALBUMIN 3.7 gm/dl (3.1-4.5); ALKALINE PHOSPHATASE 141 U/L (45-117); BUN 15 mg/dl (7-24); CHLORIDE 109 mmol/L (98-107); CREATININE 1.19 mg/dL (0.70-1.30); POTASSIUM 3.4 mmol/L (3.5-5.1); SGOT/AST 16 IU/L (3-35); SGPT/ALT 25 U/L (12-78); SODIUM 143 mmol/L (136-145); TOTAL PROTEIN 7.1 gm/dL (6.4-8.2); TROPONIN I < 0.015 ng/ml (<0.045)
[2020-05-06 17:00] VITALS: BP 100/38
[2020-05-06] MEDS ORDERED: MEXILETINE150 MG PO (18:23)
[2020-05-06] MEDS ORDERED: XANAX0.5 MG PO (18:26)
[2020-05-06] MEDS ORDERED: PROAIR HFA8.5 GM INH (18:29)
[2020-05-06 20:00] VITALS: BP 119/68
[2020-05-07] VITALS: BP 121/56
[2020-05-07 06:18] LABS: BASO % 0.2 % (0.0-1.0); HEMATOCRIT 36.9 % (42.0-52.0); LYMPH # 0.9 10*3/uL (1.3-4.4); LYMPH % 15.6 % (27.0-41.0); MEAN CELL VOLUME 79.4 fl (80.0-94.0); MEAN CORPUSCULAR HGB 22.8 pg (27.0-31.0); MEAN CORPUSCULAR HGB CONC 28.7 g/dl (33.0-37.0); MEAN PLATELET VOLUME 10.4 fl (9.6-12.3); MONO # 0.2 10*3/uL (0.1-1.0); MONO % 2.7 % (3.0-9.0); NEUT # 4.7 10*3/uL (2.3-7.9); NEUT % 81.2 % (47.0-73.0); PLATELET COUNT AUTOMATED 257 10*3/uL (130-400); RED BLOOD COUNT 4.65 10*6/uL (4.50-5.90); RED CELL DISTRI WIDTH 18.6 % (0-14.5); WHITE BLOOD COUNT 5.8 10*3/uL (4.8-10.8)
[2020-05-07 06:49] LABS: ALBUMIN 3.6 gm/dl (3.1-4.5); BUN 21 mg/dl (7-24); CHLORIDE 109 mmol/L (98-107); SGOT/AST 12 IU/L (3-35); SGPT/ALT 24 U/L (12-78); SODIUM 139 mmol/L (136-145)
[2020-05-07 06:57] LABS: ALKALINE PHOSPHATASE 138 U/L (45-117); CHOLESTEROL 101 mg/dL (<200); CREATININE 1.13 mg/dL (0.70-1.30); HDL CHOLESTEROL 43 mg/dl (40-60); LDL CHOLESTEROL 51 mg/dL (9-159); TOTAL PROTEIN 7.1 gm/dL (6.4-8.2); TRIGLYCERIDES 37 mg/dl (<150); VLDL CHOLESTEROL 7 mg/dL (6-40)
[2020-05-07 07:38] LABS: VITAMIN D, 25-HYDROXY 22.6 ng/mL (30-100)
[2020-05-07 08:00] VITALS: BP 120/70
[2020-05-07 12:00] VITALS: BP 110/78
[2020-05-07 16:00] VITALS: BP 130/71
[2020-05-07 20:00] VITALS: BP 123/67
[2020-05-08] VITALS: BP 127/79
[2020-05-08 06:19] LABS: BASO % 0.1 % (0.0-1.0); HEMATOCRIT 35.9 % (42.0-52.0); LYMPH % 8.2 % (27.0-41.0); MEAN CELL VOLUME 79.8 fl (80.0-94.0); MEAN CORPUSCULAR HGB 23.1 pg (27.0-31.0); MEAN PLATELET VOLUME 10.3 fl (9.6-12.3); MONO # 0.8 10*3/uL (0.1-1.0); MONO % 6.3 % (3.0-9.0); NEUT # 10.5 10*3/uL (2.3-7.9); PLATELET COUNT AUTOMATED 281 10*3/uL (130-400); RED CELL DISTRI WIDTH 18.6 % (0-14.5); WHITE BLOOD COUNT 12.4 10*3/uL (4.8-10.8)
[2020-05-08 06:50] LABS: BUN 24 mg/dl (7-24); CHLORIDE 106 mmol/L (98-107); CREATININE 1.11 mg/dL (0.70-1.30); POTASSIUM 3.8 mmol/L (3.5-5.1); SODIUM 138 mmol/L (136-145)
[2020-05-08 08:00] VITALS: BP 115/60
[2020-05-08 12:00] VITALS: BP 121/69
[2020-05-08 16:00] VITALS: BP 114/60
[2020-05-08 20:00] VITALS: BP 127/67
[2020-05-09] VITALS: BP 131/77
[2020-05-09 06:38] LABS: BASO % 0.1 % (0.0-1.0); LYMPH # 1.2 10*3/uL (1.3-4.4); LYMPH % 8.9 % (27.0-41.0); MEAN CELL VOLUME 78.1 fl (80.0-94.0); MEAN CORPUSCULAR HGB CONC 29.5 g/dl (33.0-37.0); MEAN PLATELET VOLUME 10.3 fl (9.6-12.3); MONO # 0.8 10*3/uL (0.1-1.0); MONO % 6.4 % (3.0-9.0); NEUT # 10.9 10*3/uL (2.3-7.9); PLATELET COUNT AUTOMATED 303 10*3/uL (130-400); RED BLOOD COUNT 4.74 10*6/uL (4.50-5.90); RED CELL DISTRI WIDTH 18.8 % (0-14.5); WHITE BLOOD COUNT 12.9 10*3/uL (4.8-10.8)
[2020-05-09 07:14] LABS: BUN 26 mg/dl (7-24); CREATININE 1.11 mg/dL (0.70-1.30)
[2020-05-09 07:29] LABS: CHLORIDE 101 mmol/L (98-107); POTASSIUM 3.8 mmol/L (3.5-5.1); SODIUM 136 mmol/L (136-145)
[2020-05-09 08:00] VITALS: BP 124/48
[2020-05-09 12:00] VITALS: BP 107/53
[2020-05-09 16:00] VITALS: BP 105/53
[2020-05-09 20:00] VITALS: BP 103/58
[2020-05-10] VITALS: BP 110/62
[2020-05-10 08:00] VITALS: BP 128/75
[2020-05-10] MEDS ORDERED: VITAMIN D350 MC2 PO (09:52)
[2020-05-10 12:00] VITALS: BP 114/57
[2020-05-10] MEDS ORDERED: Ipratropium Brom3 ML NEB (12:50)
== END 2020-05-10 14:00 | disposition home or self-care (01) | DRG 194 ==
LOC: ED 14:40 → 5E 16:21 → EDHOLD 16:21 → 5E 16:48
PROVIDERS: Emergency Medicine; Hospitalist; Internal Medicine; ADMIT Emergency Medicine; ATTEND Emergency Medicine
DX: I11.0 Hypertensive heart disease with heart failure (principal); M94.0 Chondrocostal junction syndrome [Tietze]; J44.1 Chronic obstructive pulmonary disease with (acute) exacerbation; I50.43 Acute on chronic combined systolic (congestive) and diastolic (congestive) heart failure; K21.9 Gastro-esophageal reflux disease without esophagitis; I25.10 Atherosclerotic heart disease of native coronary artery without angina pectoris; I38 Endocarditis, valve unspecified; M19.90 Unspecified osteoarthritis, unspecified site; E44.0 Moderate protein-calorie malnutrition; E87.6 Hypokalemia; G50.9 Disorder of trigeminal nerve, unspecified; E66.9 Obesity, unspecified; E83.41 Hypermagnesemia; I48.91 Unspecified atrial fibrillation; H54.61 Unqualified visual loss, right eye, normal vision left eye; G89.29 Other chronic pain; I42.9 Cardiomyopathy, unspecified; F41.9 Anxiety disorder, unspecified; F32.9 Major depressive disorder, single episode, unspecified; D50.9 Iron deficiency anemia, unspecified; J84.9 Interstitial pulmonary disease, unspecified; E83.42 Hypomagnesemia; I27.20 Pulmonary hypertension, unspecified; Z95.3 Presence of xenogenic heart valve; Z82.49 Family history of ischemic heart disease and other diseases of the circulatory system; Z98.42 Cataract extraction status, left eye; Z87.891 Personal history of nicotine dependence; Z95.810 Presence of automatic (implantable) cardiac defibrillator; Z91.19 Patient's noncompliance with other medical treatment and regimen; Z68.31 Body mass index [BMI] 31.0-31.9, adult; I74.5 Embolism and thrombosis of iliac artery; I74.3 Embolism and thrombosis of arteries of the lower extremities

== ENCOUNTER → 2020-05-12 | Outpatient (CLI) | payer MEDICAID ==
[~2020-05-12] MED LIST changes: +Ipratropium Brom3 ML NEB; +MEXILETINE150 MG PO; +PROAIR HFA8.5 GM INH; +VITAMIN D350 MC2 PO
== END | disposition home or self-care (01) ==
LOC: CT 07:57
PROVIDERS: ATTEND Registered Nurse
DX: I74.5 Embolism and thrombosis of iliac artery (principal); I70.201 Unspecified atherosclerosis of native arteries of extremities, right leg; T82.898A Other specified complication of vascular prosthetic devices, implants and grafts, initial encounter

== ENCOUNTER 2020-08-18 13:58 | Inpatient (IN) | payer MEDICAID ==
[~2020-08-18] VITALS: Ht 172.7 cm; Wt 96.8 kg
[2020-08-18 14:00] VITALS: BP 114/57
[2020-08-18 14:33] LABS: BASO # 0.1 10*3/uL (0.0-0.1); BASO % 0.7 % (0.0-1.0); EOS # 0.1 10*3/uL (0.0-0.4); EOS % 1.6 % (1.0-4.0); HEMATOCRIT 36.6 % (42.0-52.0); LYMPH # 2.1 10*3/uL (1.3-4.4); LYMPH % 30.4 % (27.0-41.0); MEAN CELL VOLUME 80.4 fl (80.0-94.0); MEAN CORPUSCULAR HGB 23.7 pg (27.0-31.0); MEAN CORPUSCULAR HGB CONC 29.5 g/dl (33.0-37.0); MEAN PLATELET VOLUME 10.2 fl (9.6-12.3); MONO % 14.5 % (3.0-9.0); NEUT # 3.6 10*3/uL (2.3-7.9); NEUT % 52.5 % (47.0-73.0); PLATELET COUNT AUTOMATED 236 10*3/uL (130-400); RED BLOOD COUNT 4.55 10*6/uL (4.50-5.90); RED CELL DISTRI WIDTH 19.7 % (0-14.5); WHITE BLOOD COUNT 6.8 10*3/uL (4.8-10.8)
[2020-08-18 14:55] LABS: ALBUMIN 3.6 gm/dl (3.1-4.5); ALKALINE PHOSPHATASE 144 U/L (45-117); BUN 17 mg/dl (7-24); CHLORIDE 107 mmol/L (98-107); CREATININE 1.27 mg/dL (0.70-1.30); POTASSIUM 3.9 mmol/L (3.5-5.1); SGOT/AST 14 IU/L (3-35); SGPT/ALT 27 U/L (12-78); SODIUM 139 mmol/L (136-145); TOTAL PROTEIN 7.1 gm/dL (6.4-8.2)
[2020-08-18 14:56] LABS: LIPASE 79 U/L (73-393)
[2020-08-18 14:57] LABS: TROPONIN I < 0.015 ng/ml (<0.045)
[2020-08-18 19:19] VITALS: BP 124/78
[2020-08-18 22:26] VITALS: BP 116/80
[2020-08-19] VITALS (7 sets, daily range): BP systolic 102–135; BP diastolic 40–86
[2020-08-19 05:20] LABS: ALBUMIN 3.5 gm/dl (3.1-4.5); ALKALINE PHOSPHATASE 128 U/L (45-117); BUN 17 mg/dl (7-24); CHLORIDE 107 mmol/L (98-107); CHOLESTEROL 96 mg/dL (<200); CREATININE 1.08 mg/dL (0.70-1.30); LDL CHOLESTEROL 43 mg/dL (9-159); POTASSIUM 3.6 mmol/L (3.5-5.1); SGOT/AST 12 IU/L (3-35); SGPT/ALT 26 U/L (12-78); SODIUM 138 mmol/L (136-145); TOTAL PROTEIN 6.9 gm/dL (6.4-8.2); TRIGLYCERIDES 78 mg/dl (<150)
[2020-08-19 05:21] LABS: FREE T4 1.07 ng/dl (0.76-1.46)
[2020-08-19 05:53] LABS: BASO # 0.1 10*3/uL (0.0-0.1); EOS # 0.2 10*3/uL (0.0-0.4); EOS % 2.4 % (1.0-4.0); HEMATOCRIT 36.5 % (42.0-52.0); LYMPH # 2.1 10*3/uL (1.3-4.4); LYMPH % 33.4 % (27.0-41.0); MEAN CELL VOLUME 79.5 fl (80.0-94.0); MEAN CORPUSCULAR HGB 23.7 pg (27.0-31.0); MEAN CORPUSCULAR HGB CONC 29.9 g/dl (33.0-37.0); MEAN PLATELET VOLUME 10.5 fl (9.6-12.3); MONO # 0.9 10*3/uL (0.1-1.0); MONO % 13.8 % (3.0-9.0); NEUT # 3.1 10*3/uL (2.3-7.9); NEUT % 49.2 % (47.0-73.0); PLATELET COUNT AUTOMATED 230 10*3/uL (130-400); RED BLOOD COUNT 4.59 10*6/uL (4.50-5.90); RED CELL DISTRI WIDTH 19.5 % (0-14.5); WHITE BLOOD COUNT 6.3 10*3/uL (4.8-10.8)
[2020-08-19 07:56] LABS: VITAMIN D, 25-HYDROXY 31.6 ng/mL (30-100)
[2020-08-20] VITALS: BP 108/46
[2020-08-20 06:03] LABS: BUN 19 mg/dl (7-24); CHLORIDE 103 mmol/L (98-107); CREATININE 1.03 mg/dL (0.70-1.30); POTASSIUM 3.8 mmol/L (3.5-5.1); SODIUM 138 mmol/L (136-145)
[2020-08-20 06:20] LABS: BASO # 0.1 10*3/uL (0.0-0.1); BASO % 1.6 % (0.0-1.0); EOS # 0.2 10*3/uL (0.0-0.4); EOS % 3.4 % (1.0-4.0); HEMATOCRIT 35.8 % (42.0-52.0); LYMPH # 2.2 10*3/uL (1.3-4.4); LYMPH % 38.4 % (27.0-41.0); MEAN CELL VOLUME 79.9 fl (80.0-94.0); MEAN CORPUSCULAR HGB 23.9 pg (27.0-31.0); MEAN CORPUSCULAR HGB CONC 29.9 g/dl (33.0-37.0); MEAN PLATELET VOLUME 10.4 fl (9.6-12.3); MONO # 0.9 10*3/uL (0.1-1.0); MONO % 15.5 % (3.0-9.0); NEUT # 2.4 10*3/uL (2.3-7.9); NEUT % 40.8 % (47.0-73.0); PLATELET COUNT AUTOMATED 229 10*3/uL (130-400); RED BLOOD COUNT 4.48 10*6/uL (4.50-5.90); RED CELL DISTRI WIDTH 19.5 % (0-14.5); WHITE BLOOD COUNT 5.8 10*3/uL (4.8-10.8)
[2020-08-20 08:00] VITALS: BP 100/60; BP 94/47
[2020-08-20 12:00] VITALS: BP 105/62
[2020-08-20 16:00] VITALS: BP 97/46
[2020-08-20 20:00] VITALS: BP 117/65
[2020-08-21] VITALS: BP 116/64
[2020-08-21 08:00] VITALS: BP 126/74
[2020-08-21 09:10] LABS: BASO % 0.2 % (0.0-1.0); HEMATOCRIT 36.3 % (42.0-52.0); LYMPH % 7.9 % (27.0-41.0); MEAN CELL VOLUME 78.7 fl (80.0-94.0); MEAN CORPUSCULAR HGB 23.6 pg (27.0-31.0); MONO # 0.3 10*3/uL (0.1-1.0); MONO % 2.2 % (3.0-9.0); NEUT # 11.1 10*3/uL (2.3-7.9); NEUT % 89.1 % (47.0-73.0); PLATELET COUNT AUTOMATED 222 10*3/uL (130-400); RED BLOOD COUNT 4.61 10*6/uL (4.50-5.90); RED CELL DISTRI WIDTH 19.4 % (0-14.5); WHITE BLOOD COUNT 12.5 10*3/uL (4.8-10.8)
[2020-08-21 09:27] LABS: ALBUMIN 3.5 gm/dl (3.1-4.5); ALKALINE PHOSPHATASE 134 U/L (45-117); BUN 22 mg/dl (7-24); CHLORIDE 105 mmol/L (98-107); CREATININE 1.11 mg/dL (0.70-1.30); SGOT/AST 18 IU/L (3-35); SGPT/ALT 29 U/L (12-78); SODIUM 135 mmol/L (136-145); TOTAL PROTEIN 7.2 gm/dL (6.4-8.2)
[2020-08-21 12:00] VITALS: BP 126/61
[2020-08-21 13:25] LABS: ALBUMIN 3.6 gm/dl (3.1-4.5); ALKALINE PHOSPHATASE 131 U/L (45-117); BUN 21 mg/dl (7-24); CHLORIDE 104 mmol/L (98-107); CREATININE 1.26 mg/dL (0.70-1.30); POTASSIUM 3.9 mmol/L (3.5-5.1); SGOT/AST 22 IU/L (3-35); SGPT/ALT 32 U/L (12-78); SODIUM 136 mmol/L (136-145); TOTAL PROTEIN 7.3 gm/dL (6.4-8.2)
[2020-08-21 16:00] VITALS: BP 117/63
[2020-08-21 20:00] VITALS: BP 113/66
[2020-08-22] VITALS: BP 129/73
[2020-08-22 06:03] LABS: ALBUMIN 3.5 gm/dl (3.1-4.5); ALKALINE PHOSPHATASE 118 U/L (45-117); BUN 22 mg/dl (7-24); CHLORIDE 106 mmol/L (98-107); CREATININE 1.02 mg/dL (0.70-1.30); POTASSIUM 4.7 mmol/L (3.5-5.1); SGOT/AST 33 IU/L (3-35); SGPT/ALT 49 U/L (12-78); SODIUM 137 mmol/L (136-145); TOTAL PROTEIN 7.1 gm/dL (6.4-8.2)
[2020-08-22 06:18] LABS: BASO % 0.1 % (0.0-1.0); LYMPH # 1.4 10*3/uL (1.3-4.4); LYMPH % 9.8 % (27.0-41.0); MEAN CELL VOLUME 79.7 fl (80.0-94.0); MEAN CORPUSCULAR HGB 23.5 pg (27.0-31.0); MEAN CORPUSCULAR HGB CONC 29.5 g/dl (33.0-37.0); MEAN PLATELET VOLUME 10.2 fl (9.6-12.3); MONO # 1.3 10*3/uL (0.1-1.0); MONO % 8.8 % (3.0-9.0); NEUT # 11.8 10*3/uL (2.3-7.9); NEUT % 80.5 % (47.0-73.0); PLATELET COUNT AUTOMATED 249 10*3/uL (130-400); RED BLOOD COUNT 4.64 10*6/uL (4.50-5.90); RED CELL DISTRI WIDTH 19.9 % (0-14.5); WHITE BLOOD COUNT 14.6 10*3/uL (4.8-10.8)
[2020-08-22 08:00] VITALS: BP 135/66
[2020-08-22 08:30] VITALS: BP 122/60
[2020-08-22 12:00] VITALS: BP 117/55
[2020-08-22 15:37] LABS: BILIRUBIN Negative (Negative); BLOOD Negative (Negative); CLARITY Clear (Clear); COLOR Yellow (Yellow); GLUCOSE Negative (Negative); KETONE Trace (Negative); LEUKO ESTERASE Negative (Negative); NITRITE Negative (Negative); PH 5.5 (4.5-8.0); SPECIFIC GRAVITY 1.015 (1.001-1.030)
[2020-08-22 15:52] LABS: COARSE GRANULAR CAST 0-2; EPITHELIAL CELLS 0-2; FINE GRANULAR CAST 0-2; HYALINE CAST 0-2; MUCOUS 1+; RBC 0-2 rbc/hpf (0-2); WBC 0-2 wbc/hpf (0-5)
[2020-08-22 16:00] VITALS: BP 121/64; BP 143/73
[2020-08-22 20:00] VITALS: BP 116/55
[2020-08-23] VITALS: BP 106/54
[2020-08-23 08:00] VITALS: BP 118/69
[2020-08-23 08:30] VITALS: BP 122/70
[2020-08-23 12:00] VITALS: BP 129/70
[2020-08-23] MEDS ORDERED: MEXILETINE HCL150 MG PO (13:10)
[2020-08-23] MEDS ORDERED: PREDNISONE10 MG PO (13:10)
[2020-08-23] MEDS ORDERED: METOPROLOL SUC100 M1 PO (13:10)
[2020-08-23 16:00] VITALS: BP 123/71; BP 129/70
[2020-08-23 20:00] VITALS: BP 136/76
[2020-08-24] VITALS: BP 115/53
[2020-08-24 08:00] VITALS: BP 125/63
[2020-08-24 08:07] VITALS: BP 118/64
[2020-08-28] MEDS ORDERED: CARAFATE1 G1 PO (09:38)
[2020-08-28] MEDS ORDERED: HYDROCODONE-AC1 EAC1 PO (09:38)
[2020-08-28] MEDS ORDERED: VALTREX1000 MG PO (09:38)
== END 2020-08-24 11:00 | disposition home or self-care (01) | DRG 194 ==
LOC: ED 13:58 → 5E 16:23 → EDHOLD 16:23 → 5E 08-19 07:55
PROVIDERS: Emergency Medicine; Family Medicine; Internal Medicine; Internal Medicine Cardiovascular Disease; ADMIT Internal Medicine; ATTEND Internal Medicine
DX: I11.0 Hypertensive heart disease with heart failure (principal); I50.33 Acute on chronic diastolic (congestive) heart failure; J44.1 Chronic obstructive pulmonary disease with (acute) exacerbation; K21.9 Gastro-esophageal reflux disease without esophagitis; E83.41 Hypermagnesemia; I25.10 Atherosclerotic heart disease of native coronary artery without angina pectoris; M19.90 Unspecified osteoarthritis, unspecified site; I48.91 Unspecified atrial fibrillation; E44.0 Moderate protein-calorie malnutrition; R73.9 Hyperglycemia, unspecified; R74.8 Abnormal levels of other serum enzymes; G89.29 Other chronic pain; D68.9 Coagulation defect, unspecified; E78.5 Hyperlipidemia, unspecified; I47.2 Ventricular tachycardia; D72.829 Elevated white blood cell count, unspecified; D50.9 Iron deficiency anemia, unspecified; R10.13 Epigastric pain; F41.8 Other specified anxiety disorders; J84.9 Interstitial pulmonary disease, unspecified; E66.9 Obesity, unspecified; Z95.810 Presence of automatic (implantable) cardiac defibrillator; Z95.3 Presence of xenogenic heart valve; Z87.891 Personal history of nicotine dependence; Z82.49 Family history of ischemic heart disease and other diseases of the circulatory system; Z79.82 Long term (current) use of aspirin; Z79.899 Other long term (current) drug therapy; Z86.74 Personal history of sudden cardiac arrest; Z95.1 Presence of aortocoronary bypass graft; Z83.3 Family history of diabetes mellitus; Z80.8 Family history of malignant neoplasm of other organs or systems; Z68.32 Body mass index [BMI] 32.0-32.9, adult

== ENCOUNTER 2020-08-31 12:20 | Emergency (ER) | payer MEDICAID ==
[~2020-08-31 12:20] MED LIST changes: +CARAFATE1 G1 PO; +HYDROCODONE-AC1 EAC1 PO; +METOPROLOL SUC100 M1 PO; +VALTREX1000 MG PO
[2020-08-31 12:42] LABS: EOS # 0.2 10*3/uL (0.0-0.4); EOS % 2.2 % (1.0-4.0); LYMPH # 1.8 10*3/uL (1.3-4.4); LYMPH % 26.1 % (27.0-41.0); MEAN CELL VOLUME 77.9 fl (80.0-94.0); MEAN CORPUSCULAR HGB 23.6 pg (27.0-31.0); MEAN CORPUSCULAR HGB CONC 30.3 g/dl (33.0-37.0); MEAN PLATELET VOLUME 9.6 fl (9.6-12.3); MONO # 1.1 10*3/uL (0.1-1.0); MONO % 15.6 % (3.0-9.0); NEUT # 3.8 10*3/uL (2.3-7.9); NEUT % 54.9 % (47.0-73.0); PLATELET COUNT AUTOMATED 228 10*3/uL (130-400); RED BLOOD COUNT 4.75 10*6/uL (4.50-5.90); RED CELL DISTRI WIDTH 19.5 % (0-14.5); WHITE BLOOD COUNT 6.9 10*3/uL (4.8-10.8)
[2020-08-31 13:04] LABS: ALBUMIN 3.2 gm/dl (3.1-4.5); ALKALINE PHOSPHATASE 116 U/L (45-117); BUN 21 mg/dl (7-24); CHLORIDE 101 mmol/L (98-107); CREATININE 1.28 mg/dL (0.70-1.30); SGOT/AST 25 IU/L (3-35); SGPT/ALT 75 U/L (12-78); SODIUM 134 mmol/L (136-145); TOTAL PROTEIN 6.3 gm/dL (6.4-8.2)
[2020-08-31 13:08] LABS: TROPONIN I < 0.015 ng/ml (<0.045)
[2020-08-31 14:10] VITALS: BP 111/64
[2020-08-31] MEDS ORDERED: BENADRYL ALLERG25 M5 PO (14:25)
[2020-08-31] MEDS ORDERED: LASIX40 MG PO (14:25)
== END 2020-08-31 14:34 | disposition home or self-care (01) ==
LOC: ED 12:20
PROVIDERS: Student in an Organized Health Care Education/Training Program
DX: L25.9 Unspecified contact dermatitis, unspecified cause (principal); R60.0 Localized edema; Z91.19 Patient's noncompliance with other medical treatment and regimen; Z79.899 Other long term (current) drug therapy; Z98.890 Other specified postprocedural states

== ENCOUNTER 2020-09-02 21:06 | Inpatient (IN) | payer MEDICAID ==
[~2020-09-02] VITALS: Ht 172.7 cm; Wt 96.9 kg
[~2020-09-02 21:06] MED LIST changes: +BENADRYL ALLERG25 M5 PO; +LASIX40 MG PO
[2020-09-02 21:47] LABS: BASO % 0.1 % (0.0-1.0); EOS # 0.1 10*3/uL (0.0-0.4); EOS % 1.1 % (1.0-4.0); LYMPH # 2.3 10*3/uL (1.3-4.4); LYMPH % 25.3 % (27.0-41.0); MEAN CELL VOLUME 78.6 fl (80.0-94.0); MEAN CORPUSCULAR HGB 23.8 pg (27.0-31.0); MEAN CORPUSCULAR HGB CONC 30.3 g/dl (33.0-37.0); MEAN PLATELET VOLUME 9.9 fl (9.6-12.3); MONO # 1.3 10*3/uL (0.1-1.0); MONO % 13.7 % (3.0-9.0); NEUT # 5.4 10*3/uL (2.3-7.9); NEUT % 58.9 % (47.0-73.0); PLATELET COUNT AUTOMATED 216 10*3/uL (130-400); RED BLOOD COUNT 4.71 10*6/uL (4.50-5.90); RED CELL DISTRI WIDTH 20.1 % (0-14.5); WHITE BLOOD COUNT 9.2 10*3/uL (4.8-10.8)
[2020-09-02 22:00] VITALS: BP 94/39
[2020-09-02 22:04] VITALS: BP 106/56
[2020-09-02 22:19] LABS: ALBUMIN 3.4 gm/dl (3.1-4.5); ALKALINE PHOSPHATASE 98 U/L (45-117); BUN 27 mg/dl (7-24); CHLORIDE 105 mmol/L (98-107); CREATININE 1.47 mg/dL (0.70-1.30); POTASSIUM 3.8 mmol/L (3.5-5.1); SGOT/AST 24 IU/L (3-35); SODIUM 135 mmol/L (136-145); TOTAL PROTEIN 6.4 gm/dL (6.4-8.2); TROPONIN I < 0.015 ng/ml (<0.045)
[2020-09-02 22:26] LABS: SGPT/ALT 69 U/L (12-78)
[2020-09-02 23:00] VITALS: BP 101/50
[2020-09-03] VITALS: BP 105/49
[2020-09-03 00:30] VITALS: BP 111/53
[2020-09-03] MEDS ORDERED: MEXILETINE HCL150 MG PO (01:14)
[2020-09-03] MEDS ORDERED: PREDNISONE10 MG PO (01:15)
[2020-09-03 03:44] LABS: ALBUMIN 3.2 gm/dl (3.1-4.5); ALKALINE PHOSPHATASE 94 U/L (45-117); BUN 30 mg/dl (7-24); CHLORIDE 107 mmol/L (98-107); CREATININE 1.38 mg/dL (0.70-1.30); POTASSIUM 4.1 mmol/L (3.5-5.1); SGOT/AST 29 IU/L (3-35); SGPT/ALT 61 U/L (12-78); SODIUM 134 mmol/L (136-145); TOTAL PROTEIN 6.3 gm/dL (6.4-8.2)
[2020-09-03 05:50] LABS: BASO % 0.1 % (0.0-1.0); EOS # 0.1 10*3/uL (0.0-0.4); EOS % 1.5 % (1.0-4.0); HEMATOCRIT 35.8 % (42.0-52.0); LYMPH # 2.3 10*3/uL (1.3-4.4); LYMPH % 27.1 % (27.0-41.0); MEAN CELL VOLUME 78.3 fl (80.0-94.0); MEAN CORPUSCULAR HGB 24.1 pg (27.0-31.0); MEAN CORPUSCULAR HGB CONC 30.7 g/dl (33.0-37.0); MEAN PLATELET VOLUME 9.9 fl (9.6-12.3); MONO # 1.2 10*3/uL (0.1-1.0); MONO % 13.7 % (3.0-9.0); NEUT # 4.8 10*3/uL (2.3-7.9); NEUT % 56.7 % (47.0-73.0); PLATELET COUNT AUTOMATED 197 10*3/uL (130-400); RED BLOOD COUNT 4.57 10*6/uL (4.50-5.90); RED CELL DISTRI WIDTH 20.3 % (0-14.5); WHITE BLOOD COUNT 8.6 10*3/uL (4.8-10.8)
[2020-09-03 08:00] VITALS: BP 116/54
[2020-09-03 12:00] VITALS: BP 117/94
[2020-09-03 16:00] VITALS: BP 103/51
[2020-09-03 20:00] VITALS: BP 103/55
[2020-09-04] VITALS (7 sets, daily range): BP systolic 106–112; BP diastolic 57–72
[2020-09-04 05:35] LABS: BUN 29 mg/dl (7-24); CHLORIDE 103 mmol/L (98-107); CREATININE 1.12 mg/dL (0.70-1.30); SODIUM 134 mmol/L (136-145)
[2020-09-04 06:00] LABS: BASO % 0.3 % (0.0-1.0); EOS # 0.2 10*3/uL (0.0-0.4); EOS % 1.8 % (1.0-4.0); HEMATOCRIT 37.3 % (42.0-52.0); LYMPH # 2.5 10*3/uL (1.3-4.4); LYMPH % 27.3 % (27.0-41.0); MEAN CELL VOLUME 79.4 fl (80.0-94.0); MEAN CORPUSCULAR HGB 23.6 pg (27.0-31.0); MEAN CORPUSCULAR HGB CONC 29.8 g/dl (33.0-37.0); MEAN PLATELET VOLUME 10.5 fl (9.6-12.3); MONO # 1.4 10*3/uL (0.1-1.0); NEUT % 54.5 % (47.0-73.0); PLATELET COUNT AUTOMATED 201 10*3/uL (130-400); RED CELL DISTRI WIDTH 20.4 % (0-14.5); WHITE BLOOD COUNT 9.1 10*3/uL (4.8-10.8)
[2020-09-05 06:52] LABS: CHLORIDE 103 mmol/L (98-107); POTASSIUM 3.7 mmol/L (3.5-5.1); SODIUM 137 mmol/L (136-145)
[2020-09-05 06:55] LABS: BUN 27 mg/dl (7-24)
[2020-09-05 08:00] VITALS: BP 113/72
[2020-09-05 12:00] VITALS: BP 134/71
== END 2020-09-05 15:15 | disposition home or self-care (01) | DRG 194 ==
LOC: ED 21:06 → EDHOLD 23:19 → 5E 23:19
PROVIDERS: Hospitalist; Internal Medicine; ADMIT Internal Medicine; ATTEND Internal Medicine
DX: I11.0 Hypertensive heart disease with heart failure (principal); I24.9 Acute ischemic heart disease, unspecified; I50.33 Acute on chronic diastolic (congestive) heart failure; D50.9 Iron deficiency anemia, unspecified; E87.1 Hypo-osmolality and hyponatremia; R73.9 Hyperglycemia, unspecified; E83.41 Hypermagnesemia; K21.9 Gastro-esophageal reflux disease without esophagitis; F41.8 Other specified anxiety disorders; M15.9 Polyosteoarthritis, unspecified; I25.10 Atherosclerotic heart disease of native coronary artery without angina pectoris; J84.9 Interstitial pulmonary disease, unspecified; I48.91 Unspecified atrial fibrillation; E66.9 Obesity, unspecified; G89.29 Other chronic pain; J44.9 Chronic obstructive pulmonary disease, unspecified; N17.0 Acute kidney failure with tubular necrosis; Z91.19 Patient's noncompliance with other medical treatment and regimen; Z95.3 Presence of xenogenic heart valve; Z95.1 Presence of aortocoronary bypass graft; Z95.810 Presence of automatic (implantable) cardiac defibrillator; Z87.891 Personal history of nicotine dependence; Z82.49 Family history of ischemic heart disease and other diseases of the circulatory system; Z79.82 Long term (current) use of aspirin; Z79.899 Other long term (current) drug therapy; Z98.42 Cataract extraction status, left eye; Z83.3 Family history of diabetes mellitus; Z80.8 Family history of malignant neoplasm of other organs or systems; Z68.32 Body mass index [BMI] 32.0-32.9, adult

== ENCOUNTER 2020-09-17 22:03 | Inpatient (IN) | payer MEDICAID ==
[~2020-09-17] VITALS: Ht 172.7 cm; Wt 93.6 kg
[2020-09-17 22:09] VITALS: BP 89/49; BP 93/49
[2020-09-17 22:28] LABS: BASO # 0.1 10*3/uL (0.0-0.1); BASO % 0.9 % (0.0-1.0); EOS # 0.3 10*3/uL (0.0-0.4); EOS % 5.1 % (1.0-4.0); HEMATOCRIT 35.3 % (42.0-52.0); LYMPH % 34.8 % (27.0-41.0); MEAN CELL VOLUME 79.1 fl (80.0-94.0); MEAN CORPUSCULAR HGB CONC 30.3 g/dl (33.0-37.0); MEAN PLATELET VOLUME 10.6 fl (9.6-12.3); MONO % 16.8 % (3.0-9.0); NEUT # 2.4 10*3/uL (2.3-7.9); NEUT % 42.2 % (47.0-73.0); PLATELET COUNT AUTOMATED 334 10*3/uL (130-400); RED BLOOD COUNT 4.46 10*6/uL (4.50-5.90); RED CELL DISTRI WIDTH 20.3 % (0-14.5); WHITE BLOOD COUNT 5.6 10*3/uL (4.8-10.8)
[2020-09-17 23:05] LABS: INTERNATIONAL NORM RATIO 1.2 (2.0-3.5)
[2020-09-17 23:12] LABS: ALBUMIN 3.4 gm/dl (3.1-4.5); ALKALINE PHOSPHATASE 117 U/L (45-117); BUN 21 mg/dl (7-24); CHLORIDE 109 mmol/L (98-107); CREATININE 1.22 mg/dL (0.70-1.30); POTASSIUM 3.8 mmol/L (3.5-5.1); SGOT/AST 17 IU/L (3-35); SGPT/ALT 30 U/L (12-78); SODIUM 137 mmol/L (136-145); TOTAL PROTEIN 6.5 gm/dL (6.4-8.2)
[2020-09-17 23:14] LABS: TROPONIN I < 0.015 ng/ml (<0.045)
[2020-09-18] VITALS (19 sets, daily range): BP systolic 98–133; BP diastolic 48–70
[2020-09-18 06:09] LABS: ALBUMIN 3.7 gm/dl (3.1-4.5); BUN 22 mg/dl (7-24); CHLORIDE 108 mmol/L (98-107); CREATININE 1.17 mg/dL (0.70-1.30); POTASSIUM 3.6 mmol/L (3.5-5.1); SGOT/AST 16 IU/L (3-35); SGPT/ALT 31 U/L (12-78); SODIUM 140 mmol/L (136-145); TOTAL PROTEIN 6.9 gm/dL (6.4-8.2)
[2020-09-18 06:11] LABS: ALKALINE PHOSPHATASE 120 U/L (45-117)
[2020-09-18 06:15] LABS: BASO % 0.8 % (0.0-1.0); EOS # 0.3 10*3/uL (0.0-0.4); EOS % 5.8 % (1.0-4.0); HEMATOCRIT 37.2 % (42.0-52.0); LYMPH # 2.1 10*3/uL (1.3-4.4); LYMPH % 39.9 % (27.0-41.0); MEAN CORPUSCULAR HGB 23.7 pg (27.0-31.0); MEAN CORPUSCULAR HGB CONC 29.3 g/dl (33.0-37.0); MEAN PLATELET VOLUME 10.1 fl (9.6-12.3); MONO # 0.9 10*3/uL (0.1-1.0); MONO % 17.7 % (3.0-9.0); NEUT # 1.9 10*3/uL (2.3-7.9); NEUT % 35.6 % (47.0-73.0); PLATELET COUNT AUTOMATED 283 10*3/uL (130-400); RED BLOOD COUNT 4.59 10*6/uL (4.50-5.90); RED CELL DISTRI WIDTH 20.5 % (0-14.5); WHITE BLOOD COUNT 5.3 10*3/uL (4.8-10.8)
[2020-09-18 06:35] LABS: BILIRUBIN Negative (Negative); BLOOD Negative (Negative); CLARITY Clear (Clear); COLOR Yellow (Yellow); GLUCOSE Negative (Negative); KETONE Negative (Negative); LEUKO ESTERASE Negative (Negative); NITRITE Negative (Negative); PH 6.5 (4.5-8.0)
[2020-09-18 06:42] LABS: EPITHELIAL CELLS 0-2; WBC 0-2 wbc/hpf (0-5)
[2020-09-18 06:43] LABS: MUCOUS 1+
[2020-09-18] MEDS ORDERED: LASIX40 MG PO ×2 (14:46→14:47)
[2020-09-19] VITALS: BP 132/72
[2020-09-19 05:58] LABS: BASO # 0.1 10*3/uL (0.0-0.1); BASO % 1.1 % (0.0-1.0); EOS # 0.3 10*3/uL (0.0-0.4); EOS % 6.7 % (1.0-4.0); HEMATOCRIT 36.8 % (42.0-52.0); LYMPH # 1.6 10*3/uL (1.3-4.4); LYMPH % 33.6 % (27.0-41.0); MEAN CELL VOLUME 79.8 fl (80.0-94.0); MEAN CORPUSCULAR HGB 23.9 pg (27.0-31.0); MEAN CORPUSCULAR HGB CONC 29.9 g/dl (33.0-37.0); MEAN PLATELET VOLUME 9.9 fl (9.6-12.3); MONO # 0.9 10*3/uL (0.1-1.0); MONO % 18.5 % (3.0-9.0); NEUT # 1.9 10*3/uL (2.3-7.9); NEUT % 40.1 % (47.0-73.0); PLATELET COUNT AUTOMATED 281 10*3/uL (130-400); RED BLOOD COUNT 4.61 10*6/uL (4.50-5.90); WHITE BLOOD COUNT 4.6 10*3/uL (4.8-10.8)
[2020-09-19 06:21] LABS: ALBUMIN 3.6 gm/dl (3.1-4.5); ALKALINE PHOSPHATASE 126 U/L (45-117); BUN 22 mg/dl (7-24); CHLORIDE 105 mmol/L (98-107); CREATININE 1.03 mg/dL (0.70-1.30); POTASSIUM 3.9 mmol/L (3.5-5.1); SGOT/AST 18 IU/L (3-35); SGPT/ALT 29 U/L (12-78); SODIUM 136 mmol/L (136-145); TOTAL PROTEIN 6.7 gm/dL (6.4-8.2)
[2020-09-19 08:00] VITALS: BP 120/64; BP 120/70
[2020-09-19 12:00] VITALS: BP 120/62
[2020-09-19 16:00] VITALS: BP 106/56
[2020-09-19 20:00] VITALS: BP 117/53
[2020-09-20] VITALS: BP 115/63
[2020-09-20 06:07] LABS: BUN 25 mg/dl (7-24); CHLORIDE 102 mmol/L (98-107); CREATININE 1.23 mg/dL (0.70-1.30); POTASSIUM 3.8 mmol/L (3.5-5.1); SODIUM 133 mmol/L (136-145)
[2020-09-20 08:00] VITALS: BP 116/58
[2020-09-20 12:00] VITALS: BP 115/67
[2020-09-20 16:00] VITALS: BP 100/50
[2020-09-20 20:00] VITALS: BP 102/51
[2020-09-21] VITALS: BP 100/55
[2020-09-21 06:50] LABS: CREATININE 1.66 mg/dL (0.70-1.30); POTASSIUM 3.9 mmol/L (3.5-5.1)
[2020-09-21 08:00] VITALS: BP 104/58
[2020-09-21 12:00] VITALS: BP 100/52
[2020-09-21 16:00] VITALS: BP 102/52
[2020-09-21 20:00] VITALS: BP 101/48
[2020-09-22] VITALS: BP 109/57
[2020-09-22 06:19] LABS: BUN 31 mg/dl (7-24); CHLORIDE 103 mmol/L (98-107); CREATININE 1.35 mg/dL (0.70-1.30); POTASSIUM 3.7 mmol/L (3.5-5.1); SODIUM 134 mmol/L (136-145)
[2020-09-22 08:00] VITALS: BP 108/80
[2020-09-22] MEDS ORDERED: Lasix80 MG PO (10:44)
[2020-09-22] MEDS ORDERED: HYDROCODONE-AC1 EAC1 PO (10:44)
[2020-09-22] MEDS ORDERED: K-TAB20 MEQ PO (10:44)
== END 2020-09-22 13:00 | disposition home or self-care (01) | DRG 243 ==
LOC: ED 22:03 → EDHOLD 09-18 02:42 → 5E 09-18 02:42
PROVIDERS: Emergency Medicine; Hospitalist; Internal Medicine; Registered Nurse; Student in an Organized Health Care Education/Training Program; ADMIT Internal Medicine; ATTEND Internal Medicine
DX: K21.9 Gastro-esophageal reflux disease without esophagitis (principal); I11.0 Hypertensive heart disease with heart failure; I50.33 Acute on chronic diastolic (congestive) heart failure; F41.8 Other specified anxiety disorders; M19.91 Primary osteoarthritis, unspecified site; I25.10 Atherosclerotic heart disease of native coronary artery without angina pectoris; J84.9 Interstitial pulmonary disease, unspecified; E44.0 Moderate protein-calorie malnutrition; G89.29 Other chronic pain; J44.9 Chronic obstructive pulmonary disease, unspecified; I48.91 Unspecified atrial fibrillation; I95.9 Hypotension, unspecified; E66.9 Obesity, unspecified; E83.41 Hypermagnesemia; E78.5 Hyperlipidemia, unspecified; E87.8 Other disorders of electrolyte and fluid balance, not elsewhere classified; Z95.3 Presence of xenogenic heart valve; Z95.810 Presence of automatic (implantable) cardiac defibrillator; Z87.891 Personal history of nicotine dependence; Z82.49 Family history of ischemic heart disease and other diseases of the circulatory system; Z83.3 Family history of diabetes mellitus; Z80.8 Family history of malignant neoplasm of other organs or systems; Z95.1 Presence of aortocoronary bypass graft; Z79.899 Other long term (current) drug therapy; Z79.82 Long term (current) use of aspirin; Z91.19 Patient's noncompliance with other medical treatment and regimen; Z68.31 Body mass index [BMI] 31.0-31.9, adult; N17.0 Acute kidney failure with tubular necrosis

== ENCOUNTER 2020-10-19 19:59 | Emergency (ER) | payer MEDICAID ==
[~2020-10-19] VITALS: Ht 172.7 cm; Wt 94.8 kg
[~2020-10-19 19:59] MED LIST changes: +K-TAB20 MEQ PO; +Lasix80 MG PO
[2020-10-19 20:48] LABS: BASO # 0.1 10*3/uL (0.0-0.1); EOS # 0.4 10*3/uL (0.0-0.4); EOS % 5.9 % (1.0-4.0); HEMATOCRIT 36.2 % (42.0-52.0); LYMPH # 2.1 10*3/uL (1.3-4.4); LYMPH % 34.8 % (27.0-41.0); MEAN CORPUSCULAR HGB CONC 31.2 g/dl (33.0-37.0); MEAN PLATELET VOLUME 9.9 fl (9.6-12.3); MONO # 0.9 10*3/uL (0.1-1.0); MONO % 15.1 % (3.0-9.0); NEUT # 2.6 10*3/uL (2.3-7.9); PLATELET COUNT AUTOMATED 247 10*3/uL (130-400); RED CELL DISTRI WIDTH 18.6 % (0-14.5); WHITE BLOOD COUNT 6.1 10*3/uL (4.8-10.8)
[2020-10-19 21:05] LABS: ALBUMIN 4.1 gm/dl (3.1-4.5); ALKALINE PHOSPHATASE 118 U/L (45-117); BUN 17 mg/dl (7-24); CHLORIDE 103 mmol/L (98-107); SGOT/AST 18 IU/L (3-35); SGPT/ALT 31 U/L (12-78); SODIUM 135 mmol/L (136-145); TOTAL PROTEIN 7.2 gm/dL (6.4-8.2)
[2020-10-19 21:07] LABS: TROPONIN I < 0.015 ng/ml (<0.045)
[2020-10-20 01:13] VITALS: BP 132/73
== END 2020-10-20 01:14 | disposition home or self-care (01) ==
LOC: ED 19:59
PROVIDERS: Internal Medicine
DX: I50.22 Chronic systolic (congestive) heart failure (principal); D50.9 Iron deficiency anemia, unspecified; M79.2 Neuralgia and neuritis, unspecified; Z79.899 Other long term (current) drug therapy; Z79.82 Long term (current) use of aspirin; Z98.61 Coronary angioplasty status; Z98.890 Other specified postprocedural states; Z87.891 Personal history of nicotine dependence

== ENCOUNTER 2020-12-03 13:34 | Emergency (ER) | payer MEDICAID ==
[2020-12-03 13:35] VITALS: BP 102/60
[2020-12-03 13:56] LABS: BASO # 0.1 10*3/uL (0.0-0.1); BASO % 0.8 % (0.0-1.0); EOS # 0.2 10*3/uL (0.0-0.4); EOS % 2.5 % (1.0-4.0); HEMATOCRIT 38.4 % (42.0-52.0); LYMPH # 2.2 10*3/uL (1.3-4.4); LYMPH % 30.8 % (27.0-41.0); MEAN CELL VOLUME 77.3 fl (80.0-94.0); MEAN CORPUSCULAR HGB 23.1 pg (27.0-31.0); MEAN CORPUSCULAR HGB CONC 29.9 g/dl (33.0-37.0); MONO # 1.2 10*3/uL (0.1-1.0); MONO % 16.6 % (3.0-9.0); NEUT # 3.6 10*3/uL (2.3-7.9); NEUT % 49.2 % (47.0-73.0); PLATELET COUNT AUTOMATED 268 10*3/uL (130-400); RED BLOOD COUNT 4.97 10*6/uL (4.50-5.90); RED CELL DISTRI WIDTH 18.1 % (0-14.5); WHITE BLOOD COUNT 7.2 10*3/uL (4.8-10.8)
[2020-12-03 14:10] LABS: INTERNATIONAL NORM RATIO 1.3 (2.0-3.5)
[2020-12-03 14:13] LABS: ALBUMIN 3.8 gm/dl (3.1-4.5); ALKALINE PHOSPHATASE 114 U/L (45-117); BUN 18 mg/dl (7-24); CHLORIDE 103 mmol/L (98-107); CREATININE 1.23 mg/dL (0.70-1.30); POTASSIUM 3.5 mmol/L (3.5-5.1); SGOT/AST 16 IU/L (3-35); SGPT/ALT 26 U/L (12-78); SODIUM 136 mmol/L (136-145); TOTAL PROTEIN 6.9 gm/dL (6.4-8.2)
[2020-12-03 14:23] LABS: TROPONIN I < 0.015 ng/ml (<0.045)
[2020-12-03] MEDS ORDERED: VICO75300 PO (15:10)
== END 2020-12-03 15:44 | disposition home or self-care (01) ==
LOC: ED 13:34
PROVIDERS: Internal Medicine
DX: G62.9 Polyneuropathy, unspecified (principal); Z79.899 Other long term (current) drug therapy; Z79.82 Long term (current) use of aspirin; Z87.891 Personal history of nicotine dependence

== ENCOUNTER 2020-12-29 08:50 | Inpatient (IN) | payer MEDICAID ==
[2020-12-29] VITALS (9 sets, daily range): BP systolic 90–136; BP diastolic 45–82
[~2020-12-29] VITALS: Ht 170.1 cm; Wt 94.1 kg
[~2020-12-29 08:50] MED LIST changes: +VICO75300 PO
[2020-12-29 09:12] LABS: BASO % 0.8 % (0.0-1.0); EOS # 0.2 10*3/uL (0.0-0.4); EOS % 3.1 % (1.0-4.0); HEMATOCRIT 36.1 % (42.0-52.0); LYMPH # 1.5 10*3/uL (1.3-4.4); LYMPH % 29.2 % (27.0-41.0); MEAN CELL VOLUME 74.7 fl (80.0-94.0); MEAN CORPUSCULAR HGB 22.4 pg (27.0-31.0); MEAN CORPUSCULAR HGB CONC 29.9 g/dl (33.0-37.0); MEAN PLATELET VOLUME 9.3 fl (9.6-12.3); MONO # 0.7 10*3/uL (0.1-1.0); MONO % 13.7 % (3.0-9.0); NEUT # 2.8 10*3/uL (2.3-7.9); PLATELET COUNT AUTOMATED 246 10*3/uL (130-400); RED BLOOD COUNT 4.83 10*6/uL (4.50-5.90); RED CELL DISTRI WIDTH 18.1 % (0-14.5); WHITE BLOOD COUNT 5.2 10*3/uL (4.8-10.8)
[2020-12-29 09:25] LABS: ACT PARTIAL THROMBO TIME 26.9 SECONDS (20.0-32.1); INTERNATIONAL NORM RATIO 1.3 (2.0-3.5)
[2020-12-29 09:28] LABS: ALBUMIN 3.7 gm/dl (3.1-4.5); ALKALINE PHOSPHATASE 133 U/L (45-117); BUN 12 mg/dl (7-24); CHLORIDE 104 mmol/L (98-107); CREATININE 1.22 mg/dL (0.70-1.30); POTASSIUM 2.9 mmol/L (3.5-5.1); SGOT/AST 18 IU/L (3-35); SGPT/ALT 20 U/L (12-78); SODIUM 139 mmol/L (136-145); TOTAL PROTEIN 6.9 gm/dL (6.4-8.2); TROPONIN I < 0.015 ng/ml (<0.045)
[2020-12-29] MEDS ORDERED: SYMB160 INH (09:40)
[2020-12-29] MEDS ORDERED: LASIX40 MG PO ×2 (09:45→09:46)
[2020-12-29] MEDS ORDERED: LASIX80 MG PO (09:45)
[2020-12-29] MEDS ORDERED: MEXILETINE150 MG PO (09:49)
[2020-12-29] MEDS ORDERED: OMEPRAZOLE40 MG PO (09:51)
[2020-12-29] MEDS ORDERED: MELATONIN5 M1 PO (09:52)
[2020-12-30] VITALS: BP 108/51
[2020-12-30 06:38] LABS: BASO # 0.1 10*3/uL (0.0-0.1); BASO % 1.1 % (0.0-1.0); EOS # 0.2 10*3/uL (0.0-0.4); EOS % 2.1 % (1.0-4.0); HEMATOCRIT 38.8 % (42.0-52.0); LYMPH # 1.8 10*3/uL (1.3-4.4); LYMPH % 25.1 % (27.0-41.0); MEAN CELL VOLUME 77.1 fl (80.0-94.0); MEAN CORPUSCULAR HGB 22.3 pg (27.0-31.0); MEAN CORPUSCULAR HGB CONC 28.9 g/dl (33.0-37.0); MEAN PLATELET VOLUME 10.1 fl (9.6-12.3); MONO # 1.3 10*3/uL (0.1-1.0); MONO % 17.1 % (3.0-9.0); NEUT % 54.3 % (47.0-73.0); PLATELET COUNT AUTOMATED 300 10*3/uL (130-400); RED BLOOD COUNT 5.03 10*6/uL (4.50-5.90); WHITE BLOOD COUNT 7.3 10*3/uL (4.8-10.8)
[2020-12-30 06:47] LABS: ALBUMIN 3.7 gm/dl (3.1-4.5); ALKALINE PHOSPHATASE 131 U/L (45-117); BUN 17 mg/dl (7-24); CHLORIDE 104 mmol/L (98-107); CREATININE 1.28 mg/dL (0.70-1.30); POTASSIUM 3.8 mmol/L (3.5-5.1); SGOT/AST 24 IU/L (3-35); SGPT/ALT 24 U/L (12-78); SODIUM 138 mmol/L (136-145); TOTAL PROTEIN 6.7 gm/dL (6.4-8.2)
[2020-12-30 08:00] VITALS: BP 109/66
[2020-12-30] MEDS ORDERED: POTASSIUM CHLO20 ME3 PO (11:45)
[2020-12-30 12:00] VITALS: BP 106/51
== END 2020-12-30 12:45 | disposition home or self-care (01) | DRG 206 ==
LOC: ED 08:50 → 5E 11:58 → EDHOLD 11:58 → 5E 16:39
PROVIDERS: Emergency Medicine; Student in an Organized Health Care Education/Training Program; ADMIT Internal Medicine; ATTEND Internal Medicine
PROC: 4B02XTZ Measurement of Cardiac Defibrillator, External Approach (ICD-10-PCS; principal; 2020-12-29)
DX: T82.897A Other specified complication of cardiac prosthetic devices, implants and grafts, initial encounter (principal); E83.41 Hypermagnesemia; K21.9 Gastro-esophageal reflux disease without esophagitis; F41.8 Other specified anxiety disorders; I50.33 Acute on chronic diastolic (congestive) heart failure; I25.10 Atherosclerotic heart disease of native coronary artery without angina pectoris; J84.9 Interstitial pulmonary disease, unspecified; M79.2 Neuralgia and neuritis, unspecified; I38 Endocarditis, valve unspecified; D50.9 Iron deficiency anemia, unspecified; R74.8 Abnormal levels of other serum enzymes; I11.0 Hypertensive heart disease with heart failure; E87.6 Hypokalemia; R73.9 Hyperglycemia, unspecified; S09.90XA Unspecified injury of head, initial encounter; E80.6 Other disorders of bilirubin metabolism; G89.29 Other chronic pain; J44.9 Chronic obstructive pulmonary disease, unspecified; I48.0 Paroxysmal atrial fibrillation; Z79.899 Other long term (current) drug therapy; Z95.2 Presence of prosthetic heart valve; Z95.1 Presence of aortocoronary bypass graft; Z95.810 Presence of automatic (implantable) cardiac defibrillator; Z98.42 Cataract extraction status, left eye; Z87.891 Personal history of nicotine dependence; Z82.49 Family history of ischemic heart disease and other diseases of the circulatory system; W18.39XA Other fall on same level, initial encounter; Y93.89 Activity, other specified; Y92.89 Other specified places as the place of occurrence of the external cause; Y99.8 Other external cause status

== ENCOUNTER → 2021-08-10 | Outpatient (CLI) | payer MEDICAID ==
[~2021-08-10] MED LIST changes: +LASIX80 MG PO; +POTASSIUM CHLO20 ME3 PO; +SYMB160 INH
== END | disposition home or self-care (01) ==
LOC: RAD 10:47
PROVIDERS: ATTEND Internal Medicine
DX: J44.9 Chronic obstructive pulmonary disease, unspecified (principal); J84.10 Pulmonary fibrosis, unspecified; I51.7 Cardiomegaly; J90 Pleural effusion, not elsewhere classified

== ENCOUNTER 2021-09-26 16:10 | Emergency (ER) | payer MEDICAID ==
[~2021-09-26] VITALS: Ht 172.7 cm; Wt 72.6 kg
[2021-09-26 16:31] VITALS: BP 122/62
[2021-09-26 17:22] LABS: BASO # 0.1 10*3/uL (0.0-0.1); EOS # 0.2 10*3/uL (0.0-0.4); EOS % 2.8 % (1.0-4.0); HEMATOCRIT 37.7 % (42.0-52.0); LYMPH # 2.1 10*3/uL (1.3-4.4); LYMPH % 34.6 % (27.0-41.0); MEAN CELL VOLUME 78.1 fl (80.0-94.0); MEAN CORPUSCULAR HGB 23.2 pg (27.0-31.0); MEAN CORPUSCULAR HGB CONC 29.7 g/dl (33.0-37.0); MEAN PLATELET VOLUME 9.8 fl (9.6-12.3); MONO # 0.9 10*3/uL (0.1-1.0); MONO % 15.6 % (3.0-9.0); NEUT # 2.7 10*3/uL (2.3-7.9); NEUT % 45.8 % (47.0-73.0); PLATELET COUNT AUTOMATED 214 10*3/uL (130-400); RED BLOOD COUNT 4.83 10*6/uL (4.50-5.90); RED CELL DISTRI WIDTH 19.8 % (0-14.5)
[2021-09-26 17:34] LABS: ACT PARTIAL THROMBO TIME 31.9 SECONDS (20.0-32.1); INTERNATIONAL NORM RATIO 1.3 (2.0-3.5)
[2021-09-26 17:56] LABS: ALKALINE PHOSPHATASE 146 U/L (45-117); BUN 14 mg/dl (7-24); CHLORIDE 102 mmol/L (98-107); CREATININE 1.14 mg/dL (0.70-1.30); POTASSIUM 3.4 mmol/L (3.5-5.1); SGOT/AST 20 IU/L (3-35); SGPT/ALT 17 U/L (12-78); SODIUM 140 mmol/L (136-145); TOTAL PROTEIN 6.9 gm/dL (6.4-8.2)
== END 2021-09-26 21:01 | disposition home or self-care (01) ==
LOC: ED 16:10
PROVIDERS: Emergency Medicine
DX: I70.301 Unspecified atherosclerosis of unspecified type of bypass graft(s) of the extremities, right leg (principal); I70.302 Unspecified atherosclerosis of unspecified type of bypass graft(s) of the extremities, left leg; I48.91 Unspecified atrial fibrillation; J44.9 Chronic obstructive pulmonary disease, unspecified; K21.9 Gastro-esophageal reflux disease without esophagitis; I25.10 Atherosclerotic heart disease of native coronary artery without angina pectoris; M19.90 Unspecified osteoarthritis, unspecified site; Z87.891 Personal history of nicotine dependence; Z79.899 Other long term (current) drug therapy

== ENCOUNTER → 2021-09-26 | Outpatient (CLI) | payer MEDICAID | LOC: CARD 13:00 | PROVIDERS: ATTEND Internal Medicine Cardiovascular Disease | DX: I49.9 Cardiac arrhythmia, unspecified (principal); Z86.718 Personal history of other venous thrombosis and embolism ==

== ENCOUNTER → 2021-11-02 | Outpatient (CLI) | payer MEDICAID ==
[~2021-11-02] MED LIST changes: +BUDESONIDE-FO10.2 G1 INH; +DECADRON6 M1 PO; +METOPROLOL SUC200 M1 PO; +MUCINEX1200 M1 PO; +SPIRIVA RESPIMAT4 GM INH; +VENT7GM INH
== END | disposition home or self-care (01) ==
LOC: WOUNDCARE 14:50
PROVIDERS: ATTEND Nurse Practitioner Family
DX: R21 Rash and other nonspecific skin eruption (principal); B00.9 Herpesviral infection, unspecified; I25.10 Atherosclerotic heart disease of native coronary artery without angina pectoris; I11.0 Hypertensive heart disease with heart failure; I50.9 Heart failure, unspecified; J43.9 Emphysema, unspecified; K21.9 Gastro-esophageal reflux disease without esophagitis; M19.90 Unspecified osteoarthritis, unspecified site; F41.9 Anxiety disorder, unspecified; Z86.718 Personal history of other venous thrombosis and embolism; Z87.891 Personal history of nicotine dependence; Z95.4 Presence of other heart-valve replacement; Z95.818 Presence of other cardiac implants and grafts

== ENCOUNTER 2022-05-31 00:42 | Inpatient (IN) | payer MEDICAID ==
[~2022-05-31] VITALS: Ht 172.7 cm; Wt 82.3 kg
[2022-05-31] VITALS (9 sets, daily range): BP systolic 90–121; BP diastolic 37–76
[2022-05-31 01:02] LABS: HEMATOCRIT 39.4 % (42.0-52.0); MEAN CORPUSCULAR HGB 21.3 pg (27.0-31.0); MEAN CORPUSCULAR HGB CONC 29.2 g/dl (33.0-37.0); MEAN PLATELET VOLUME 9.4 fl (9.6-12.3); PLATELET COUNT AUTOMATED 250 10*3/uL (130-400); RED CELL DISTRI WIDTH 21.1 % (0-14.5); WHITE BLOOD COUNT 7.2 10*3/uL (4.8-10.8)
[2022-05-31 01:05] LABS: MANUAL DIFF REFLEX YES
[2022-05-31 01:18] LABS: ALKALINE PHOSPHATASE 137 U/L (46-116); BUN 16 mg/dl (9-23); CHLORIDE 100 mmol/L (98-107); POTASSIUM 3.7 mmol/L (3.4-5.1); SGPT/ALT 13 U/L (10-49); TOTAL PROTEIN 6.6 gm/dL (6.0-8.0)
[2022-05-31 01:27] LABS: BASOPHILS 1 % (0-1); PLATELET SUFFICIENCY NORMAL (NORMAL); POLYCHROMASIA SLIGHT; TOTAL CELLS COUNTED 100 #CELLS
[2022-05-31 01:28] LABS: ACANTHOCYTES FEW; MICROCYTOSIS SLIGHT
[2022-05-31 01:30] LABS: OVALOCYTES FEW
[2022-05-31 01:31] LABS: BURR CELLS MODERATE
[2022-05-31 07:31] LABS: BASO # 0.1 10*3/uL (0.0-0.1); EOS # 0.2 10*3/uL (0.0-0.4); EOS % 2.5 % (1.0-4.0); HEMATOCRIT 38.1 % (42.0-52.0); LYMPH # 2.1 10*3/uL (1.3-4.4); LYMPH % 34.6 % (27.0-41.0); MEAN CELL VOLUME 73.1 fl (80.0-94.0); MEAN CORPUSCULAR HGB 22.1 pg (27.0-31.0); MEAN CORPUSCULAR HGB CONC 30.2 g/dl (33.0-37.0); MEAN PLATELET VOLUME 10.2 fl (9.6-12.3); MONO # 1.1 10*3/uL (0.1-1.0); NEUT # 2.6 10*3/uL (2.3-7.9); NEUT % 42.7 % (47.0-73.0); PLATELET COUNT AUTOMATED 229 10*3/uL (130-400); RED BLOOD COUNT 5.21 10*6/uL (4.50-5.90); RED CELL DISTRI WIDTH 20.8 % (0-14.5)
[2022-05-31 08:11] LABS: ALKALINE PHOSPHATASE 131 U/L (46-116); BUN 15 mg/dl (9-23); CHLORIDE 100 mmol/L (98-107); POTASSIUM 3.5 mmol/L (3.4-5.1); SGPT/ALT 13 U/L (10-49); TOTAL PROTEIN 6.5 gm/dL (6.0-8.0)
[2022-06-01] VITALS: BP 103/69
[2022-06-01 06:19] LABS: ALKALINE PHOSPHATASE 131 U/L (46-116); BUN 18 mg/dl (9-23); CHLORIDE 102 mmol/L (98-107); POTASSIUM 4.2 mmol/L (3.4-5.1); SGPT/ALT 17 U/L (10-49); TOTAL PROTEIN 6.4 gm/dL (6.0-8.0)
[2022-06-01 06:22] LABS: BASO # 0.1 10*3/uL (0.0-0.1); BASO % 0.9 % (0.0-1.0); EOS # 0.3 10*3/uL (0.0-0.4); EOS % 4.8 % (1.0-4.0); LYMPH # 2.2 10*3/uL (1.3-4.4); LYMPH % 38.9 % (27.0-41.0); MEAN CELL VOLUME 75.6 fl (80.0-94.0); MEAN CORPUSCULAR HGB 21.3 pg (27.0-31.0); MEAN CORPUSCULAR HGB CONC 28.2 g/dl (33.0-37.0); MEAN PLATELET VOLUME 10.5 fl (9.6-12.3); MONO # 1.1 10*3/uL (0.1-1.0); MONO % 18.9 % (3.0-9.0); NEUT % 36.3 % (47.0-73.0); PLATELET COUNT AUTOMATED 245 10*3/uL (130-400); RED BLOOD COUNT 5.16 10*6/uL (4.50-5.90); RED CELL DISTRI WIDTH 20.6 % (0-14.5); WHITE BLOOD COUNT 5.6 10*3/uL (4.8-10.8)
[2022-06-01 08:00] VITALS: BP 120/73
[2022-06-01 12:00] VITALS: BP 105/47
[2022-06-01 16:00] VITALS: BP 82/56
[2022-06-01 20:00] VITALS: BP 98/56
[2022-06-02] VITALS: BP 97/55
[2022-06-02 07:27] LABS: HEMATOCRIT 37.6 % (42.0-52.0); MEAN CORPUSCULAR HGB 21.5 pg (27.0-31.0); MEAN PLATELET VOLUME 9.7 fl (9.6-12.3); PLATELET COUNT AUTOMATED 224 10*3/uL (130-400); RED BLOOD COUNT 5.08 10*6/uL (4.50-5.90); RED CELL DISTRI WIDTH 20.4 % (0-14.5); WHITE BLOOD COUNT 5.7 10*3/uL (4.8-10.8)
[2022-06-02 07:28] LABS: MANUAL DIFF REFLEX YES
[2022-06-02 07:45] LABS: BUN 18 mg/dl (9-23); CHLORIDE 101 mmol/L (98-107); POTASSIUM 3.3 mmol/L (3.4-5.1)
[2022-06-02 08:00] VITALS: BP 107/50
[2022-06-02 08:28] LABS: ATYPICAL LYMPHS 1 % (0-0); BASOPHILS 4 % (0-1); MICROCYTOSIS SLIGHT; OVALOCYTES MODERATE; PLATELET SUFFICIENCY NORMAL (NORMAL); POLYCHROMASIA SLIGHT; SCHISTOCYTES FEW; TOTAL CELLS COUNTED 100 #CELLS
[2022-06-02 12:00] VITALS: BP 115/52
[2022-06-02 16:00] VITALS: BP 105/58
[2022-06-02 20:00] VITALS: BP 106/55
[2022-06-03] VITALS: BP 108/71
[2022-06-03 07:03] LABS: BUN 12 mg/dl (9-23); CHLORIDE 97 mmol/L (98-107); POTASSIUM 3.6 mmol/L (3.4-5.1)
[2022-06-03 08:00] VITALS: BP 104/62
[2022-06-03 12:00] VITALS: BP 111/69
[2022-06-03 16:00] VITALS: BP 118/61
[2022-06-03 20:00] VITALS: BP 112/55
[2022-06-04] VITALS: BP 105/65
[2022-06-04 07:33] LABS: BUN 12 mg/dl (9-23); CHLORIDE 98 mmol/L (98-107); POTASSIUM 3.9 mmol/L (3.4-5.1)
[2022-06-04 08:00] VITALS: BP 107/60
[2022-06-04 12:00] VITALS: BP 106/67
[2022-06-04 16:00] VITALS: BP 105/75
[2022-06-04 20:00] VITALS: BP 99/59
[2022-06-05] VITALS: BP 100/59
[2022-06-05 07:17] LABS: BUN 14 mg/dl (9-23); CHLORIDE 97 mmol/L (98-107); POTASSIUM 3.7 mmol/L (3.4-5.1)
[2022-06-05 08:00] VITALS: BP 100/52
[2022-06-05 15:48] VITALS: BP 130/88
[2022-06-05 20:00] VITALS: BP 114/65
[2022-06-06] VITALS: BP 104/69
[2022-06-06 03:00] VITALS: BP 108/69
[2022-06-06 08:00] VITALS: BP 111/69
[2022-06-06 12:00] VITALS: BP 112/71
== END 2022-06-06 15:59 | disposition home or self-care (01) | DRG 194 ==
LOC: ED 00:42 → EDHOLD 03:19 → 5E 03:19
PROVIDERS: Internal Medicine; Student in an Organized Health Care Education/Training Program; ADMIT Internal Medicine; ATTEND Internal Medicine
DX: I11.0 Hypertensive heart disease with heart failure (principal); E87.1 Hypo-osmolality and hyponatremia; I50.33 Acute on chronic diastolic (congestive) heart failure; J84.9 Interstitial pulmonary disease, unspecified; I48.20 Chronic atrial fibrillation, unspecified; Z95.1 Presence of aortocoronary bypass graft; G89.29 Other chronic pain; F41.8 Other specified anxiety disorders; D50.9 Iron deficiency anemia, unspecified; R73.9 Hyperglycemia, unspecified; K21.9 Gastro-esophageal reflux disease without esophagitis; I25.10 Atherosclerotic heart disease of native coronary artery without angina pectoris; J44.9 Chronic obstructive pulmonary disease, unspecified; M79.2 Neuralgia and neuritis, unspecified; R00.0 Tachycardia, unspecified; I42.9 Cardiomyopathy, unspecified; Z95.2 Presence of prosthetic heart valve; Z87.891 Personal history of nicotine dependence; Z79.51 Long term (current) use of inhaled steroids; Z79.899 Other long term (current) drug therapy; Z95.810 Presence of automatic (implantable) cardiac defibrillator

== ENCOUNTER 2022-08-15 15:41 | Emergency (ER) | payer MEDICAID ==
[~2022-08-15] VITALS: Ht 172.7 cm; Wt 81.6 kg
[2022-08-15 16:18] VITALS: BP 117/47
== END 2022-08-15 18:42 | disposition left against medical advice (07) ==
LOC: ED 15:41
DX: M79.605 Pain in left leg (principal); Z53.21 Procedure and treatment not carried out due to patient leaving prior to being seen by health care provider

== ENCOUNTER → 2022-08-15 | Outpatient (CLI) | payer MEDICAID ==
[~2022-08-15] MED LIST changes: +ASPIRIN ADULT L81 M2 PO; +FAMOTIDINE40 MG PO; +Ipratropium Brom3 ML INH; +MULTIVITAMIN PO
== END | disposition home or self-care (01) ==
LOC: RAD 14:54
PROVIDERS: ATTEND Internal Medicine Cardiovascular Disease
DX: I51.7 Cardiomegaly (principal); J81.1 Chronic pulmonary edema; J90 Pleural effusion, not elsewhere classified; Z95.810 Presence of automatic (implantable) cardiac defibrillator

== ENCOUNTER 2022-09-12 15:30 | Inpatient (IN) | payer OTHER, MEDICAID ==
[~2022-09-12] VITALS: Ht 167.6 cm; Wt 77.6 kg
[2022-09-12 15:35] VITALS: BP 106/42
[2022-09-12 17:10] LABS: BASO % 0.5 % (0.0-1.0); EOS # 0.1 10*3/uL (0.0-0.4); EOS % 2.2 % (1.0-4.0); HEMATOCRIT 37.7 % (42.0-52.0); LYMPH % 31.9 % (27.0-41.0); MEAN CELL VOLUME 76.5 fl (80.0-94.0); MEAN CORPUSCULAR HGB 22.7 pg (27.0-31.0); MEAN CORPUSCULAR HGB CONC 29.7 g/dl (33.0-37.0); MEAN PLATELET VOLUME 9.5 fl (9.6-12.3); MONO # 0.7 10*3/uL (0.1-1.0); MONO % 11.1 % (3.0-9.0); NEUT # 3.5 10*3/uL (2.3-7.9); NEUT % 54.1 % (47.0-73.0); PLATELET COUNT AUTOMATED 219 10*3/uL (130-400); RED BLOOD COUNT 4.93 10*6/uL (4.50-5.90); RED CELL DISTRI WIDTH 24.4 % (0-14.5); WHITE BLOOD COUNT 6.4 10*3/uL (4.8-10.8)
[2022-09-12 17:22] LABS: ACT PARTIAL THROMBO TIME 34.6 SECONDS (20.0-32.1); INTERNATIONAL NORM RATIO 1.4 (2.0-3.5)
[2022-09-12 17:32] LABS: ALKALINE PHOSPHATASE 140 U/L (46-116); BUN 17 mg/dl (9-23); CHLORIDE 102 mmol/L (98-107); LIPASE 25 U/L (12-53); POTASSIUM 3.8 mmol/L (3.4-5.1); SGPT/ALT 25 U/L (10-49); TOTAL PROTEIN 6.5 gm/dL (6.0-8.0)
[2022-09-12 21:05] VITALS: BP 100/64
[2022-09-13 02:15] VITALS: BP 118/68
[2022-09-13 03:00] VITALS: BP 146/57
[2022-09-13] MEDS ORDERED: ATIVAN1 MG PO (03:46)
[2022-09-13] MEDS ORDERED: COLACE100 MG PO (03:47)
[2022-09-13] MEDS ORDERED: LASIX80 MG PO (03:48)
[2022-09-13] MEDS ORDERED: HYDROCODONE-AC1 EACH PO (03:48)
[2022-09-13] MEDS ORDERED: IMODIUM A-D2 M2 PO (03:49)
[2022-09-13] MEDS ORDERED: LEVSIN-SL0.125 MG SL (03:50)
[2022-09-13] MEDS ORDERED: TRAMADOL HCL50 MG PO (04:01)
[2022-09-13] MEDS ORDERED: MORPHINE S10 MG/5 M2 PO (04:02)
[2022-09-13] MEDS ORDERED: ONDANSETRON4 MG SL (04:03)
[2022-09-13] MEDS ORDERED: MAALOX ADVANCE355 M1 PO (04:05)
[2022-09-13 08:00] VITALS: BP 134/75
[2022-09-13 12:00] VITALS: BP 111/57
[2022-09-13 15:43] VITALS: BP 109/48
[2022-09-13 20:00] VITALS: BP 105/48
[2022-09-14] VITALS: BP 98/44
[2022-09-14 08:00] VITALS: BP 106/48
[2022-09-14 12:00] VITALS: BP 94/47
[2022-09-14 16:00] VITALS: BP 93/39
[2022-09-14 20:00] VITALS: BP 100/49
[2022-09-15] VITALS: BP 103/44
[2022-09-15 08:00] VITALS: BP 78/34
== END 2022-09-15 09:53 | DRG 535 ==
LOC: ED 15:30 → 4E 23:26 → EDHOLD 23:26 → 4E 09-13 02:19
PROVIDERS: Emergency Medicine; ADMIT Student in an Organized Health Care Education/Training Program; ATTEND Student in an Organized Health Care Education/Training Program
PROC: 5A0935A Assistance with Respiratory Ventilation, Less than 24 Consecutive Hours, High Flow/Velocity Cannula (ICD-10-PCS; principal; 2022-09-13)
PROC: 5A0945A Assistance with Respiratory Ventilation, 24-96 Consecutive Hours, High Flow/Velocity Cannula (ICD-10-PCS; 2022-09-14)
DX: S72.011A Unspecified intracapsular fracture of right femur, initial encounter for closed fracture (principal); J96.01 Acute respiratory failure with hypoxia; E87.1 Hypo-osmolality and hyponatremia; I38 Endocarditis, valve unspecified; J84.9 Interstitial pulmonary disease, unspecified; I50.32 Chronic diastolic (congestive) heart failure; Z66 Do not resuscitate; M15.9 Polyosteoarthritis, unspecified; D50.9 Iron deficiency anemia, unspecified; K21.9 Gastro-esophageal reflux disease without esophagitis; Z51.5 Encounter for palliative care; F41.8 Other specified anxiety disorders; I25.10 Atherosclerotic heart disease of native coronary artery without angina pectoris; I48.91 Unspecified atrial fibrillation; W18.39XA Other fall on same level, initial encounter; H54.3 Unqualified visual loss, both eyes; J44.9 Chronic obstructive pulmonary disease, unspecified; M79.2 Neuralgia and neuritis, unspecified; G89.29 Other chronic pain; R74.01 Elevation of levels of liver transaminase levels; Z95.810 Presence of automatic (implantable) cardiac defibrillator; Z87.891 Personal history of nicotine dependence; Z82.49 Family history of ischemic heart disease and other diseases of the circulatory system; Z79.1 Long term (current) use of non-steroidal anti-inflammatories (NSAID); Z79.899 Other long term (current) drug therapy; Y93.89 Activity, other specified; Y92.89 Other specified places as the place of occurrence of the external cause; Y99.8 Other external cause status